=== PATIENT | female | born 1950 | race Caucasian/White ===

== ENCOUNTER 2019-04-02 14:03 | Outpatient (CLI) | payer MEDICARE, MEDICAID, SELFPAY | END 2019-04-02 14:04 | disposition home or self-care (01) | PROVIDERS: PCP Family Medicine; Visit Provider Family Medicine | DX: H90.3 Sensorineural hearing loss, bilateral (principal) | CPT/HCPCS: 92557; 92567 ==

== ENCOUNTER 2019-05-11 15:00 | Outpatient (RCR) | payer MEDICARE, MEDICAID, SELFPAY | END 2019-05-11 23:59 | disposition home or self-care (01) | LOC: ANHAUDIO 15:00 | PROVIDERS: PCP Family Medicine; Visit Provider Family Medicine | DX: Z46.1 Encounter for fitting and adjustment of hearing aid (principal) | CPT/HCPCS: 99199 ==

== ENCOUNTER 2019-10-28 09:07 | Outpatient (RCR) | payer MEDICAID, SELFPAY | END 2019-10-28 23:59 | disposition home or self-care (01) | LOC: ANHAUDIO 09:07 | PROVIDERS: PCP Family Medicine; Visit Provider Family Medicine | DX: Z46.1 Encounter for fitting and adjustment of hearing aid (principal) | CPT/HCPCS: V5014 ==

== ENCOUNTER 2020-12-30 12:35 | Outpatient (CLI) | payer MEDICARE, MEDICAID, SELFPAY | END 2020-12-30 12:36 | disposition home or self-care (01) | LOC: ANHAUDIO 12:36 | DX: Z01.10 Encounter for examination of ears and hearing without abnormal findings (principal) | CPT/HCPCS: 92557; 92567 ==

== ENCOUNTER 2021-03-21 08:22 | Outpatient (RCR) | payer MEDICARE, MEDICAID, SELFPAY | END 2021-03-21 23:59 | disposition home or self-care (01) | LOC: ANHAUDIO 08:22 | DX: Z46.1 Encounter for fitting and adjustment of hearing aid (principal) | CPT/HCPCS: V5160; V5261; V5264 ==

== ENCOUNTER 2021-09-04 01:49 | Inpatient (IN) | payer MEDICARE, MEDICAID, SELFPAY ==
[2021-09-04] VITALS (12 sets, daily range): BP systolic 112–146; BP diastolic 65–76; PULSE 65–80; RESP 16–22; TEMP 35.9–36.8; O2SAT 94–98; BMI 11.0
--- NOTE | ~2021-09-04 | XR_ITS ---
[id number]_CR DATE: 09/06/2021 11:39 INDICATION: Postthoracentesis TECHNIQUE: Portable upright AP views of the chest on 09/06/2021 at 1131 hours COMPARISON: 09/06/2021 thoracentesis 09/2021 CT chest 09/05/2021 portable AP chest 09/2021 2 view chest FINDINGS: No evidence of pneumothorax following left thoracentesis earlier today. There is substantia lly diminished left pleural effusion. Lobular enlarged cardiac silhouette consistent with pericardial effusion noted on 09/2021 CT chest ex amination. Mild blunting of both costophrenic angle suggesting bilateral small pleural effusions. There is prominent left mid and lower lung infiltrate and/atelectasis with air bronchograms. Severe bilateral glenohumeral osteoarthritis. Mild dextroscoliosis and prominent degenerative spurrin g of the thoracic spine.. IMPRESSION: No evidence of pneumothorax following thoracentesis today Left mid and lower lung infiltrate and/atelectasis Globular enlarged cardiac silhouette consistent with pericardial effusion noted on 09/2021 CT chest e xamination Reviewed, dictated and finalized at [facility]. Reviewed, dictated and finalized at location A. IMPRESSION: No evidence of pneumothorax following thoracentesis today Left mid and lower lung infiltrate and/atelectasis Globular enlarged cardiac silhouette consistent with pericardial effusion noted on 09/2021 CT chest examination
--- NOTE | ~2021-09-04 | XR_ITS ---
EXAMINATION: [id number] Exam Date/Time: 09/16/2021 11:25 CDT HISTORY: LT PLEURAL EFFUSION,POST THORA Comparison: 09/06/2021. RESULT: Lines, tubes, and devices: None. Lungs and pleura: Similar moderate left effusion. Cardiomediastinal silhouette: Stable, partially obscured cardiomediastinal silhouette. Other: No acute osseous or upper abdominal finding. IMPRESSION: No pneumothorax. Similar left effusion. Reviewed, dictated and finalized at location K.
--- NOTE | ~2021-09-04 | US_ITS ---
EXAMINATION: US thoracentesis DATE: 09/06/2021 11:40 INDICATION: Left pleural effusion TECHNIQUE: The procedure and its risks and benefits were discussed with the patient. Potential risks discussed included bleeding, infection, and pneumothorax. The patient understood the risks and agreed to proceed. The skin was prepped and draped in sterile fashion. 1% lidocaine was used for local anes thesia. Under ultrasound guidance, a 5 Fr catheter with trochar was advanced into the left pleural ef fusion. Fluid was aspirated. The catheter was removed, and a dressing was applied. There were no imme diate complications. FINDINGS: Ultrasound images demonstrate a small left pleural effusion and the catheter within the fluid. IMPRESSION: 1. Successful ultrasound-guided thoracentesis yielding 950 mL of slightly green-tinged yellowish flu id. Reviewed, dictated and finalized at location A. IMPRESSION: 1. Successful ultrasound-guided thoracentesis yielding 950 mL of slightly gree n-tinged yellowish fluid.
--- NOTE | ~2021-09-04 | US_ITS ---
US thoracentesis DATE: 09/16/2021 11:42 INDICATION: Left pleural effusion TECHNIQUE: Consent was obtained by telephone from a family member. The skin over the posterior lateral left lower chest was performed per sterile Betadine and sterile d rape was applied. An intercostal space was identified sonographically for percutaneous access for tho racentesis. 1% lidocaine was administered to the skin and underlying subcutaneous tissues. A single s tick needle/catheter was introduced through the intercostal space under ultrasound guidance into the pleural space, yielding cloudy yellowish pleural effusion. A small syringe was filled with pleural fl uid for diagnostic testing. 400 CC pleural fluid was drained into a Vacutainer bottle. The patient was very cooperative and tolerated the procedure well, without apparent complication. IMPRESSION: Percutaneous ultrasound-guided left thoracentesis procedure yielding 400 CC Conray left p leural fluid Reviewed, dictated and finalized at [facility]. Reviewed, dictated and finalized at location A. IMPRESSION: Percutaneous ultrasound-guided left thoracentesis procedure yieldin g 400 CC Conray left pleural fluid
--- NOTE | ~2021-09-04 | XR_ITS ---
EXAMINATION: XR chest 1V portable DATE: 09/06/2021 06:28 INDICATION: Left pleural effusion TECHNIQUE: frontal view of the chest was obtained. COMPARISON: Chest radiograph dated 09/05/[address] dated 09/04/2021 FINDINGS: Persistent complete opacification of the left hemithorax which on prior CT corresponds to a combinati on of large left pleural effusion and left lung collapse. Right lung remains clear. No pneumothorax o r evident right pleural effusion. The left side of the cardiomediastinal is obscured. Of note on prio r CT, cardiomegaly and a large complex appearing pericardial effusion concerning for pericarditis wer e present. IMPRESSION: 1. Persistent left lung collapse with large left pleural effusion. Reviewed, dictated and finalized at location A.
--- NOTE | ~2021-09-04 | XR_ITS ---
EXAMINATION: XR chest 1V portable INDICATION: Pleural effusion TECHNIQUE: Portable AP chest at 0849 hours COMPARISON: 09/06/2021, 09/04/2021 FINDINGS: There is moderate size right pleural effusion without significant change. There are stable airspace opacities of the mid and lower lung zones and patchy opacities throughout the right lung and in the left upper lung zone. There is stable enlargement of the cardiac silhouette. There is advance d osteoarthritis of the glenohumeral joint. No pneumothorax is identified. IMPRESSION: 1. Stable moderate-sized left pleural effusion. 2. Stable bilateral airspace opacities, consistent with atelectasis versus pneumonia versus pulmonary edema. 3. Stable enlargement of the cardiac silhouette, demonstrated to reflect combination of pericardial e ffusion and cardiomegaly on recent CT. Reviewed, dictated and finalized at location B. IMPRESSION: 1. Stable moderate-sized left pleural effusion. 2. Stable bilateral airspace opacities, consistent with atelectasis versus pneu monia versus pulmonary edema. 3. Stable enlargement of the cardiac silhouette, demonstrated to reflect combin ation of pericardial effusion and cardiomegaly on recent CT.
--- NOTE | ~2021-09-04 | XR_ITS ---
XR chest 2V DATE: 09/04/2021 02:38 INDICATION: Left pleural effusion TECHNIQUE: AP and lateral views COMPARISON: 09/04/2021 CT chest FINDINGS: There is virtually complete opacification of left hemithorax due to large left pleural effu rajwinder and left lung atelectasis. Mild right pleural effusion. No pneumothorax. Severe osteoarthritic change at the glenohumeral joints. Diffuse idiopathic skeletal hyperostosis of the thoracic spine. IMPRESSION: Virtually complete opacification of left hemithorax due to large pleural effusion and lef t lung atelectasis Reviewed, dictated and finalized at location A. IMPRESSION: Virtually complete opacification of left hemithorax due to large pl eural effusion and left lung atelectasis
--- NOTE | ~2021-09-04 | US_ITS ---
EXAMINATION: US thoracentesis DATE: 09/11/2021 13:15 INDICATION: pleural effusion TECHNIQUE: The procedure and its risks, benefits, and alternatives were discussed with the patient's housing management representative. Potential risks discussed included bleeding, infection, and pneumothorax. She underst ood the risks and agreed to proceed. The skin was prepped and draped in sterile fashion. 1% lidocaine was used for local anesthesia. Under ultrasound guidance, a 5 Fr catheter with trochar was advanced into the left pleural effusion. Fluid was aspirated. The catheter was removed, and a dressing was key lied. There were no immediate complications. FINDINGS: Ultrasound images demonstrate a left pleural effusion and the catheter within the fluid. IMPRESSION: 1. Successful ultrasound-guided thoracentesis yielding 600 mL of clear, yellow fluid. Reviewed, dictated and finalized at location A.
--- NOTE | ~2021-09-04 | XR_ITS ---
EXAMINATION: XR chest 1V portable DATE: 09/05/2021 05:39 INDICATION: Shortness of breath. Left-sided pleural effusion. TECHNIQUE: frontal view of the chest was obtained. COMPARISON: Chest radiograph dated 09/04/2021 FINDINGS: Near complete opacification of the left hemithorax with minimal residual aerated lung in the left upp er lung zone. Calcified nodules in the left midlung zone consistent with old granulomatous disease. M inimal right pleural effusion at the costophrenic angle and mild streaky right basilar atelectasis. T he right side of thecardiomediastinal silhouette is unchanged. The left side is obscured by the left pleural effusion. Mitral annular calcification. Advanced bilateral glenohumeral osteoarthritis. Posto perative change of prior left mastectomy. IMPRESSION: 1. Persistent large left pleural effusion with near complete collapse of the left lung. Underlying pn eumonia or malignancy is not excludable. 2. Very small right pleural effusion with mild right basilar atelectasis. Reviewed, dictated and finalized at location A. IMPRESSION: 1. Persistent large left pleural effusion with near complete collapse of the le ft lung. Underlying pneumonia or malignancy is not excludable. 2. Very small right pleural effusion with mild right basilar atelectasis.
--- NOTE | ~2021-09-04 | CT_ITS ---
EXAMINATION: CT diagnostic chest wo con DATE: 09/04/2021 06:00 INDICATION: left sided pleural effusion TECHNIQUE: Computed tomography (CT) of the chest was performed with 75 mL Omnipaque 300 intravenous c ontrast. Automated exposure control and iterative reconstruction technique were employed. The dose-le ngth product was 640.59 mGy-cm. COMPARISON: X-ray chest, same date. FINDINGS: CHEST: Thoracic aorta: Mild ectasia and arch calcification. Lung parenchyma and airways: Motion artifact. Right apical pleural scarring. Left lung collapse. Thoracic inlet, axillae and chest wall: No thyroid or soft tissue mass. No axillary lymphadenopathy. Left edema. Mediastinum: No mass or lymphadenopathy. Heart and pericardium: Normal heart size. Large volume pericardial effusion, with pericardial thicken ing/enhancement. Mitral and possibly aortic valve calcifications. Coronary artery calcifications: Moderate. Pleura: Moderate volume left and small volume right pleural effusions. Upper abdomen: No significant finding. Thoracic bones: No acute osseous finding in the chest. IMPRESSION: Large volume pericardial effusion, with possible pericarditis. Moderate left and small right pleural effusions. Complete atelectasis of the left lung. Reviewed, dictated and finalized at location K. IMPRESSION: Large volume pericardial effusion, with possible pericarditis. Moderate left an d small right pleural effusions. Complete atelectasis of the left lung.
--- NOTE | ~2021-09-04 | XR_ITS ---
EXAMINATION: [id number] DATE: 09/11/2021 12:55 INDICATION: Left pleural effusion status post thoracentesis. TECHNIQUE: Frontal and lateral views of the chest were obtained. COMPARISON: Chest single view 09/07/2021, chest CT 09/04/2021 FINDINGS: There are small pleural effusions. There are airspace opacities in right lower lung zone an d left mid and lower lung zones. No pneumothorax. There is enlargement of the cardiac silhouette. The re is a chronic compression fracture of T11. IMPRESSION: 1. Small pleural effusions with improvement on the left status post thoracentesis. 2. Airspace opacities in right lower lung zone and left mid and lower lung zones, likely atelectasis. Pneumonia cannot be excluded. 3. Enlargement of the cardiac silhouette, likely a combination of pericardial effusion and cardiomega ly as seen on the prior CT. Reviewed, dictated and finalized at location A. IMPRESSION: 1. Small pleural effusions with improvement on the left status post thoracentes is. 2. Airspace opacities in right lower lung zone and left mid and lower lung zone s, likely atelectasis. Pneumonia cannot be excluded. 3. Enlargement of the cardiac silhouette, likely a combination of pericardial e ffusion and cardiomegaly as seen on the prior CT.
--- NOTE | ~2021-09-04 | XR_ITS ---
EXAMINATION: XR chest 1V portable DATE: 09/14/2021 05:54 INDICATION: Shortness of breath. TECHNIQUE: A single frontal view of the chest was obtained. COMPARISON: Chest 2 views 09/11/2021, chest CT 09/04/2021 FINDINGS: There are airspace opacities in left mid and lower lung zones. There is a moderate-sized le ft pleural effusion. No pneumothorax. There is enlargement of the cardiac silhouette. IMPRESSION: 1. Worsened airspace opacities in left mid and lower lung zones, consistent with a combination of mod erate-sized pleural effusion and atelectasis versus pneumonia. 2. Persistent enlargement of the cardiac silhouette, likely a combination of cardiomegaly and pericar dial effusion. Reviewed, dictated and finalized at location A. IMPRESSION: 1. Worsened airspace opacities in left mid and lower lung zones, consistent wit h a combination of moderate-sized pleural effusion and atelectasis versus pneum onia. 2. Persistent enlargement of the cardiac silhouette, likely a combination of ca rdiomegaly and pericardial effusion.
--- NOTE | 2021-09-04 01:54 | ECG_ITS ---
Measurements Intervals [place] Rate: 66 P: 38 OH: 220 QRS: 15 QRSD: 104 T: 51 QT: 420 QTc: 443 Interpretive Statements SINUS RHYTHM WITH FIRST DEGREE AV BLOCK BORDERLINE ST-T WAVE ABNORMALITY- DIFFUSE LEADS BASELINE WANDER- I, II, III, AVR, AVL BORDERLINE ECG Electronically Signed On 09-04-2021 7:41:24 CDT by Cortes Miranda D.O.
[2021-09-04 02:19] LABS: Base Excess ABG 6.4 mEq/l (+/-2.0); Fractional Inspired Oxygen 36 %; HCO3 ABG 31.5 mEq/l (22.0-26.0); Oxygen Content ABG 15.2 %vol (16.0-22.0); Oxygen Saturation ABG 97.8 % (95.0-100.0); Oxyhemoglobin 96.4 % THb (90.0-100.0); PCO2 ABG 47.9 mmHg (35.0-45.0); PO2 ABG 102.1 mmHg (80.0-100.0); PO2 FiO2 Ratio Arterial Blood 2.84 %; Total Hemoglobin 11.1 g/dL (12.0-18.0); pH ABG 7.436 (7.350-7.450)
[2021-09-04 02:20] LABS: Device NASAL CANNULA; Modified Allen's Test Pass; Site Drawn LEFT RADIAL
--- NOTE | 2021-09-04 02:28 | ED.GENADULT ---
HPI - General Adult General Chief complaint: Shortness of Breath/Dyspnea <Pacheco Mcintosh MD - Last Filed: 09/04/21 19:09> Stated complaint: pleural effusion from [facility] nursing <Pacheco Mcintosh MD - Last Filed: 09/04/21 19:09> Time Seen by Provider: 09/04/21 01:53 <Pacheco Mcintosh MD - Last Filed: 09/04/21 19:09> History of Present Illness HPI narrative: 70-year-old female presented to the emergency department for evaluation of a pleural effusion. Patient had outpatient imaging at [facility] showing a pleural effusion. Patient was initially transferred to [place]. No intervention was performed, patient was discharged back to the care facility. Care facility transfered the patient here for a second opinion on the pleural effusion. Patient does have history of hypertension, A. fib, COPD and asthma and type 2 diabetes. Patient is normally on 3 L of oxygen nasal cannula. Patient does have a Palafox catheter in place. <Pacheco Mcintosh MD - Last Filed: 09/04/21 19:09> Related Data Home medications: Home Medications Medication Instructions Recorded Confirmed amiodarone 200 mg tablet 1 tablet BID 09/04/21 09/04/21 amitriptyline 10 mg tablet 1 tablet HS 09/04/21 09/04/21 apixaban 5 mg tablet (Eliquis) 1 tablet BID 09/04/21 09/04/21 atorvastatin 20 mg tablet 1 tablet HS 09/04/21 09/04/21 budesonide-formoterol HFA 160 2 inh inhalation BID 09/04/21 09/04/21 mcg-4.5 mcg/actuation aerosol inhaler cyclosporine 0.05 % eye drops in a 2 drp EACH EYE BID 09/04/21 09/04/21 dropperette (Restasis) divalproex 125 mg capsule,delayed 2 cap PO BID 09/04/21 09/04/21 release sprinkle donepezil 10 mg tablet 1 tablet DAILY 09/04/21 09/04/21 furosemide 40 mg tablet 1 tablet DAILY 09/04/21 09/04/21 gabapentin 100 mg capsule 1 cap TID 09/04/21 09/04/21 insulin glargine 100 unit/mL (3 55 ea subcut DAILY 09/04/21 09/04/21 mL) subcutaneous pen (Lantus Solostar U-100 Insulin) insulin lispro 100 unit/mL 8 ea subcut TIDWM 09/04/21 09/04/21 subcutaneous pen (Humalog KwikPen (U-100) Insulin) ipratropium 0.5 mg-albuterol 3 mg 3 ml inhalation Q6H 09/04/21 09/04/21 (2.5 mg base)/3 mL nebulization soln ketoconazole 2 % topical cream 1 applic topical BID 09/04/21 09/04/21 metoprolol tartrate 25 mg tablet 1 tablet BID 09/04/21 09/04/21 olanzapine 2.5 mg tablet 1 tablet HS 09/04/21 09/04/21 pantoprazole 40 mg tablet,delayed 1 tablet PO BID 09/04/21 09/04/21 release sertraline 100 mg tablet 1 tablet HS 09/04/21 09/04/21 <Pacheco Mcintosh MD - Last Filed: 09/04/21 19:09> Allergies/adverse reactions: Allergies Allergy/AdvReac Type Severity Reaction Status Date / Time castor oil Allergy Unknown Verified 09/04/21 07:27 chlorpromazine Allergy Unknown Verified 09/04/21 07:27 [From Thorazine] codeine Allergy Unknown Verified 09/04/21 09:08 phenobarbital Allergy Unknown Verified 09/04/21 07:27 propoxyphene Allergy Unknown Verified 09/04/21 09:08 thioridazine [From Mellaril] Allergy Unknown Verified 09/04/21 07:27 <Pacheco Mcintosh MD - Last Filed: 09/04/21 19:09> Review of Systems Review of Systems: ROS unobtainable: Yes unobtainable due to medical condition <Pacheco Mcintosh MD - Last Filed: 09/04/21 19:09> [facility] Social History Social History: Social History Smoking status: Unknown if ever smoked Spiritual care concerns: No <Pacheco Mcintosh MD - Last Filed: 09/04/21 19:09> Exam Narrative: APPEARANCE: Alert, no distress HEAD: normocephalic, atraumatic. EYES: PERRLA/EOMI, conjunctivae clear. NOSE: Normal no drainage EARS:TMS clear with good light reflex. THROAT: Pharynx clear, no exudate. NECK: Supple. No adenopathy, no masses. RESPIRATORY: Airway patent, respirations nonlabored. Clear to auscultation bilaterally, no rales, rhonchi, wheezing. CARDIOVASCULAR: Regular rate and rhythm without murmurs rubs or gallops. ABDOMINAL: Soft, nontender, nondistended, normal b
[2021-09-04 04:51] LABS: White Blood Count 13.7 K/mm3 (4.5-10.0)
[2021-09-04 04:52] LABS: Basophils Percent Auto 0.3 % (0.2-1.2); Eosinophils Absolute Auto 0.1 K/mm3 (0-0.3); Eosinophils Percent Auto 0.8 % (0-4.4); Hemoglobin 9.5 g/dL (12.0-15.0); Immature Granulocyte Percent A 0.7 % (0-0.5); Lymphocytes Absolute Auto 2.33 K/mm3 (0.9-3.2); Mean Corpuscular HGB Conc 30.6 g/dl (32-36); Mean Corpuscular Hemoglobin 27.9 pg (26-34); Mean Corpuscular Volume 91.2 fl (80-100); Mean Platelet Volume 9.2 fl (7.4-10.4); Monocytes Percent Auto 6.9 % (2.6-8.5); Neutrophils Absolute Auto 10.2 K/mm3 (1.3-6.7); Neutrophils Percent Auto 74.3 % (45.5-73.1); Platelet Count Result 330 k/mm3 (150-375); Red Cell Distribution Width 15.2 % (11.5-14.5)
[2021-09-04 04:53] LABS: Appearance Urine Clear (Clear); Bilirubin Urine Negative (Negative); Blood Urine 3+ (Negative); Color Urine Yellow (Yellow); Glucose Urine UA Negative (Negative); Ketones Urine Negative (Negative); Leukocyte Esterase Ur Negative LEU/UL (Negative); Nitrate Urine Negative (Negative); Protein Urine 2+ mg/dL (Negative)
[2021-09-04 04:58] LABS: Add Urine Microscopic? YES; Bacteria Urine Trace /hpf; Mucus Urine Rare /lpf; RBC Urine >75 /hpf (0-2); Squamous Epithelial Cell Urine Rare /hpf (Few); Transitional Epi Cells Urine Rare /hpf (None Seen); WBC Urine 31-50 /hpf
[2021-09-04 05:02] LABS: Alanine Aminotransferase 27 U/L (6-35); Albumin Level 3.3 g/dL (3.5-5.1); Alkaline Phosphatase 86 U/L (38-126); Anion Gap 4 mmol/L (8-16); Aspartate Amino Transferase 24 U/L (14-36); Bilirubin,Total 0.4 mg/dL (0.2-1.3); Blood Urea Nitrogen 17 mg/dL (7-17); Calcium 8.5 mg/dL (8.4-10.2); Carbon Dioxide 39 mmol/L (22-30); Chloride 92 mmol/L (98-107); Estimated Glomerular Filt Rate > 60; Glucose 141 mg/dL (65-110); Potassium 2.9 mmol/L (3.4-5.0); Sodium 135 mmol/L (137-145)
[2021-09-04 05:09] LABS: NT Pro B Type Natriuretic Pept 852 pg/mL (5-100)
[2021-09-04 05:26] LABS: SARS-CoV-2 RNA PCR Negative
[2021-09-04] MEDS: POTASSIUM CHLORIDE 20 MEQ PACKET (FOR LIQUID) 40 MEQ PO (07:26)
[2021-09-04] MEDS: KCL 20 MEQ/SW 100 ML 100 ML 50 MEQ IVPB (07:26)
--- NOTE | 2021-09-04 07:42 | ECG_ITS ---
Measurements Intervals [place] Rate: 66 P: 47 MD: 219 QRS: 31 QRSD: 103 T: 120 QT: 411 QTc: 433 Interpretive Statements SINUS RHYTHM WITH FIRST DEGREE AV BLOCK BORDERLINE ST-T WAVE ABNORMALITY- DIFFUSE LEADS BORDERLINE ECG Electronically Signed On 09-04-2021 15:11:01 CDT by Cortes Miranda D.O.
[2021-09-04] MEDS: ASPIRIN 81 MG CHEWABLE TABLET 324 MG PO (07:56)
[2021-09-04] MEDS: MORPHINE SULFATE (*CRX) 2 MG/ML INJ 1 MG IV PUSH (07:56)
[2021-09-04] MEDS: ONDANSETRON INJ 4 MG/2 ML VIAL IV PUSH ×2 (07:57→13:57)
--- NOTE | 2021-09-04 08:32 | PM.IMHP ---
H&P: HPI History of Present Illness Date/Time: 09/04/21 08:32 Chief Complaint: shortness of breath Narrative: patient is a 70-year-old female with past medical history of AFib, hypertension, COPD, asthma diabetes mellitus type 2. She chronically wears 3 L of oxygen per nasal cannula. she presented to [facility] for further evaluation of shortness of breath. Patient had outpatient imaging at [facility] which revealed a pleural effusion. The patient was initially transferred to [place]. No intervention was performed and the facility discharge her. she was returned back to the [facility] facility who then transferred her to [facility] for 2nd opinion. According to the emergency department notes the patient was able to speak in complete sentences and did not appear to be in acute respiratory distress and vital signs were stable. Patient believes that the [place] is a dullness to her. The [facility] records have the patient listed as a DNR. cardiology was also consulted from the emergency department. While she was there she had labs and imaging obtained which revealed a leukocytosis 13.7, hemoglobin 9.5, hematocrit 31 point, platelet 330, sodium 135, potassium 2.9, chloride 92, glucose 141, creatinine 0.8, BUN 17 with a GFR greater than 60. P and P 852 and abnormally urinalysis. ABG performed which revealed pH 7.436, pCO2 47.9, PO2 102.1 and a bicarb 31.5. Chest x-ray performed which revealed a large left pleural effusion with lung collapse with atelectasis. Also reported possible bronchial mass or obstruction. EKG revealed normal sinus rhythm with diffuse T-wave flattening. Hospitalist team was consulted for further admission. Upon evaluation The patient is hard of hearing, difficult to have conversations and understand plan of care. Patient was also poor historian. Patient will be transferred to ICU given her chest x-ray findings in heart level care needs. Cardiology has been consulted. Review of Systems Review of Systems: ROS unobtainable: Yes unobtainable due to mental status Meds Home Medications and Allergies Home Medications Medication Instructions Recorded Confirmed Type amiodarone 200 mg tablet 1 tablet BID 09/04/21 09/04/21 History amitriptyline 10 mg tablet 1 tablet HS 09/04/21 09/04/21 History apixaban 5 mg tablet (Eliquis) 1 tablet BID 09/04/21 09/04/21 History atorvastatin 20 mg tablet 1 tablet HS 09/04/21 09/04/21 History budesonide-formoterol HFA 160 2 inh inhalation BID 09/04/21 09/04/21 History mcg-4.5 mcg/actuation aerosol inhaler cyclosporine 0.05 % eye drops in a 2 drp EACH EYE BID 09/04/21 09/04/21 History dropperette (Restasis) divalproex 125 mg capsule,delayed 2 cap PO BID 09/04/21 09/04/21 History release sprinkle donepezil 10 mg tablet 1 tablet DAILY 09/04/21 09/04/21 History furosemide 40 mg tablet 1 tablet DAILY 09/04/21 09/04/21 History gabapentin 100 mg capsule 1 cap TID 09/04/21 09/04/21 History insulin glargine 100 unit/mL (3 55 ea subcut DAILY 09/04/21 09/04/21 History mL) subcutaneous pen (Lantus Solostar U-100 Insulin) insulin lispro 100 unit/mL 8 ea subcut TIDWM 09/04/21 09/04/21 History subcutaneous pen (Humalog KwikPen (U-100) Insulin) ipratropium 0.5 mg-albuterol 3 mg 3 ml inhalation Q6H 09/04/21 09/04/21 History (2.5 mg base)/3 mL nebulization soln ketoconazole 2 % topical cream 1 applic topical BID 09/04/21 09/04/21 History metoprolol tartrate 25 mg tablet 1 tablet BID 09/04/21 09/04/21 History olanzapine 2.5 mg tablet 1 tablet HS 09/04/21 09/04/21 History pantoprazole 40 mg tablet,delayed 1 tablet PO BID 09/04/21 09/04/21 History release sertraline 100 mg tablet 1 tablet HS 09/04/21 09/04/21 History Allergies Allergy/AdvReac Type Severity Reaction Status Date / Time castor oil Allergy Unknown Verified 09/04/21 07:27 chlorpromazine Allergy Unknown Verified 09/04/21 07:27 [From Thorazine] codeine A
--- NOTE | 2021-09-04 08:42 | ECHO_ITS ---
Patient Info Name: Montse Zarate Age: 70 years : 1950 Gender: Female Ht: 63 in Wt: 141 lbs BSA: 1.70 m2 HR: 68 bpm BP: 123 / 75 mmHg Heart Rhythm: Sinus Rhythm Exam Date: 09/04/2021 1:40 PM Exam Location: [facility] Patient Status: Inpatient Admit Date: 09/04/2021 Staff Ordering Physician: Isa Paez APRN Director [facility]: Derek Solis RDCS, RT Attending Provider: Payam Srivastava MD Referring Physician: Philippe BIANCHI; Exam Type: CA echo doppler color flow Study Info Indications R06.02 - Shortness of breath Complete two-dimensional, color flow and Doppler transthoracic echocardiogram is performed. Summary 1. Complete two-dimensional, color flow and Doppler transthoracic echocardiogram is performed. 2. Left ventricular chamber dimension is normal. 3. Left ventricular systolic function is normal, estimated at 50-55%. 4. There is mild concentric increased left ventricular wall thickness. 5. Left atrial chamber dimension is mildly enlarged. 6. A small to moderate-sized pericardial effusion is present. 7. Pericardial effusion is complex with fibrin is appearing material as well as soft tissue thickening/density noted. Left Ventricle Left ventricular chamber dimension is normal. Left ventricular systolic function is normal, estimated at 50-55%. There is mild concentric increased left ventricular wall thickness. The left ventricular diastolic function is grade I diastolic dysfunction. Right Ventricle Right ventricular chamber dimension is normal. Left Atria Left atrial chamber dimension is mildly enlarged. Right Atria Right atrial chamber dimension is normal. Aortic Valve The aortic valve is normal. Pulmonic Valve The pulmonic valve is not well visualized. Mitral Valve The mitral valve has normal leaflets. The mitral valve annulus is moderately calcified. Tricuspid Valve The tricuspid valve leaflets are normal. There is trace tricuspid valve regurgitation. Pericardium/Pleural The pericardium appears thickened pericardium. There is small circumferential pericardial effusion. Aorta The aortic root size at the sinus of Valsalva is normal. Left Ventricular Outflow Tract Name Value Normal LVOT 2D LVOT Diameter 2.0 cm LVOT Doppler LVOT Peak Gradient 4 mmHg LVOT Mean Gradient 2 mmHg LVOT VTI 17 cm LVOT VTI/AV VTI Ratio 0.8 LVOT Stroke Volume 50 ml LVOT CO 3.4 l/min LVOT CI 2.0 l/min/m2 Mitral Valve Name Value Normal MV Doppler MV [place] 336 cm/s2 MV PHT 71 ms MV Area (PHT) 3.1 cm2 4.0-5.0 MV Guillen
[2021-09-04 09:12] LABS: INR 1.9; Prothrombin Time 21.1 Seconds (11.1-14.7)
[2021-09-04 09:15] LABS: Potassium 3.9 mmol/L (3.4-5.0)
[2021-09-04 11:19] LABS: Glucose Point of Care 113 mg/dl (65-105)
--- NOTE | 2021-09-04 15:04 | PC.NURSE ---
0956 This patient, Montse Zarate, was admitted to IMU status, and placed in Intensive Care Unit-2. Patient/family oriented to hospital policies and general routines including ID bracelet, bed and alarms, visiting hours, pain management, procedures, bathroom and other care routines, personal items, smoking policy, room service/diet, and visiting hours. Valuables list has been completed. Information on how to activate the Rapid Response Team has been discussed. Patient/Family are encouraged to report perceived risks to care and to ask questions if they do not understand what they are told or what they should do.
--- NOTE | 2021-09-04 17:25 | PM.CNCAR ---
Assessment and Plan Assessment and plan (1) Acute pericardial effusion: Code(s): I30.9 - Acute pericarditis, unspecified Status: Acute Plan Large left side pleural effusion and hypoxemia Small pericardial effusion (full ECHO is pending) Plan Consider thoracentesis Laisx 40 mg BID Further recommendation pending full echo reading History of Present Illness History of Present Illness Consult date/time: 09/04/21 17:25 Reason For Visit: left pleural effusion, paricardial effusion, hypok Narrative: Patient is poor historian and doesn't provide answers to most questions. She presented to hospital for evaluation of SOB and noted to have large left side pleural effusion and possible pericardial effusion. She has Hx of COPD on 3 L of O2. She appears comfortable. Review of Systems Review of Systems: ROS unobtainable: Yes unobtainable due to mental status PMFSH Social History Social History Smoking status: Unknown if ever smoked Spiritual care concerns: No Meds Home Medications and Allergies Home Medications Medication Instructions Recorded Confirmed Type amiodarone 200 mg tablet 1 tablet BID 09/04/21 09/04/21 History amitriptyline 10 mg tablet 1 tablet HS 09/04/21 09/04/21 History apixaban 5 mg tablet (Eliquis) 1 tablet BID 09/04/21 09/04/21 History atorvastatin 20 mg tablet 1 tablet HS 09/04/21 09/04/21 History budesonide-formoterol HFA 160 2 inh inhalation BID 09/04/21 09/04/21 History mcg-4.5 mcg/actuation aerosol inhaler cyclosporine 0.05 % eye drops in a 2 drp EACH EYE BID 09/04/21 09/04/21 History dropperette (Restasis) divalproex 125 mg capsule,delayed 2 cap PO BID 09/04/21 09/04/21 History release sprinkle donepezil 10 mg tablet 1 tablet DAILY 09/04/21 09/04/21 History furosemide 40 mg tablet 1 tablet DAILY 09/04/21 09/04/21 History gabapentin 100 mg capsule 1 cap TID 09/04/21 09/04/21 History insulin glargine 100 unit/mL (3 55 ea subcut DAILY 09/04/21 09/04/21 History mL) subcutaneous pen (Lantus Solostar U-100 Insulin) insulin lispro 100 unit/mL 8 ea subcut TIDWM 09/04/21 09/04/21 History subcutaneous pen (Humalog KwikPen (U-100) Insulin) ipratropium 0.5 mg-albuterol 3 mg 3 ml inhalation Q6H 09/04/21 09/04/21 History (2.5 mg base)/3 mL nebulization soln ketoconazole 2 % topical cream 1 applic topical BID 09/04/21 09/04/21 History metoprolol tartrate 25 mg tablet 1 tablet BID 09/04/21 09/04/21 History olanzapine 2.5 mg tablet 1 tablet HS 09/04/21 09/04/21 History pantoprazole 40 mg tablet,delayed 1 tablet PO BID 09/04/21 09/04/21 History release sertraline 100 mg tablet 1 tablet HS 09/04/21 09/04/21 History Allergies Allergy/AdvReac Type Severity Reaction Status Date / Time castor oil Allergy Unknown Verified 09/04/21 07:27 chlorpromazine Allergy Unknown Verified 09/04/21 07:27 [From Thorazine] codeine Allergy Unknown Verified 09/04/21 09:08 phenobarbital Allergy Unknown Verified 09/04/21 07:27 propoxyphene Allergy Unknown Verified 09/04/21 09:08 thioridazine [From Mellaril] Allergy Unknown Verified 09/04/21 07:27 Vital Signs Vital Signs - 24 hr 09/04/21 01:48 09/04/21 07:21 09/04/21 07:37 Temperature 36.8 C Pulse Rate 68 67 Respiratory Rate 22 H Blood Pressure 125/76 Pulse Oximetry 97 97 Oxygen Delivery Nasal Cannula Nasal Cannula Oxygen Flow Rate 3 3 09/04/21 07:38 09/04/21 07:38 09/04/21 09:35 Temperature Pulse Rate 65 67 Respiratory Rate 16 16 Blood Pressure 112/67 130/65 Pulse Oximetry 95 95 96 Oxygen Delivery Nasal Cannula Oxygen Flow Rate 3 09/04/21 10:11 09/04/21 12:00 09/04/21 14:00 Temperature 35.9 C L 36.4 C Pulse Rate 67 73 72 Respiratory Rate 19 18 Blood Pressure 123/75 132/70 Pulse Oximetry 97 97 Oxygen Delivery Oxygen Flow Rate 09/04/21 16:00 09/04/21 16:00 Temperature 36.8 C Pulse Rate 74 76 Respiratory Rate 18 20 Blood Pressure 146/67 H
[2021-09-04] MEDS: MELATONIN 5 MG TABLET PO (21:24)
[2021-09-04] MEDS: ACETAMINOPHEN 325 MG TABLET 650 MG PO (21:24)
[2021-09-05] VITALS (13 sets, daily range): BP systolic 125–157; BP diastolic 61–137; PULSE 67–100; RESP 18–27; TEMP 35.9–36.6; O2SAT 94–100
[2021-09-05 04:31] LABS: Basophils Percent Auto 0.3 % (0.2-1.2); Eosinophils Absolute Auto 0.2 K/mm3 (0-0.3); Eosinophils Percent Auto 1.8 % (0-4.4); Hematocrit 30.1 % (37.0-47.0); Hemoglobin 8.9 g/dL (12.0-15.0); Immature Granulocyte Absolute 0.06 K/mm3 (0.00-0.031); Immature Granulocyte Percent A 0.5 % (0-0.5); Mean Corpuscular HGB Conc 29.6 g/dl (32-36); Mean Corpuscular Hemoglobin 27.6 pg (26-34); Mean Corpuscular Volume 93.2 fl (80-100); Mean Platelet Volume 8.8 fl (7.4-10.4); Monocytes Absolute Auto 0.9 K/mm3 (0.1-0.6); Monocytes Percent Auto 7.7 % (2.6-8.5); Neutrophils Percent Auto 77.7 % (45.5-73.1); Platelet Count Result 279 k/mm3 (150-375); Red Blood Count 3.23 M/mm3 (4.2-5.4); Red Cell Distribution Width 15.2 % (11.5-14.5); White Blood Count 11.6 K/mm3 (4.5-10.0)
[2021-09-05 04:42] LABS: Alanine Aminotransferase 25 U/L (6-35); Albumin Level 2.9 g/dL (3.5-5.1); Alkaline Phosphatase 80 U/L (38-126); Anion Gap 3 mmol/L (8-16); Aspartate Amino Transferase 33 U/L (14-36); Bilirubin,Total 0.5 mg/dL (0.2-1.3); Blood Urea Nitrogen 17 mg/dL (7-17); Calcium 8.1 mg/dL (8.4-10.2); Carbon Dioxide 39 mmol/L (22-30); Chloride 94 mmol/L (98-107); Estimated Glomerular Filt Rate > 60; Glucose 133 mg/dL (65-110); Potassium 3.4 mmol/L (3.4-5.0); Sodium 136 mmol/L (137-145)
[2021-09-05] MEDS: ONDANSETRON INJ 4 MG/2 ML VIAL IV PUSH (07:09)
[2021-09-05 07:34] LABS: Albumin Level 2.9 g/dL (3.5-5.1); Lactate Dehydrogenase 275 U/L (313-618); Magnesium 1.3 mg/dL (1.6-2.3)
[2021-09-05] MEDS: POTASSIUM CHLORIDE 20 MEQ TABLET 40 MEQ PO (08:20)
[2021-09-05 11:09] LABS: Glucose Point of Care 124 mg/dl (65-105)
--- NOTE | 2021-09-05 11:14 | PM.PNCARD ---
Progress Note: A&P Assessment and Plan (1) Pleural effusion: Code(s): J90 - Pleural effusion, not elsewhere classified Status: Acute Plan 70-year-old lady who apparently is a intermediate resident and is systemically anticoagulated because of a history of atrial fibrillation. She has a very large left pleural effusion occupying most of the left hemithorax. Plans are appropriate are to perform thoracentesis for diagnostic reasons. No active or acute cardiac issue that I can see. We will continue to follow the patient with you but at this point there are no specific cardiac recommendations to make. DNR status would lead me to recommend very conservative approach to this case. Izaiah Lou MD [facility] Subjective Date/time seen: Seven date of service: 09/05/21 11:14 Interval history: Follow-up visit in this 70-year-old woman with: Large asymptomatic or minimally symptomatic left pleural effusion. Physical exam is consistent with this. Apparently plans to perform a thoracentesis are on hold because of systemic anticoagulation. The patient is essentially comfortable in ICU room 2. No acute distress. Very hard of hearing Exam Const: General: comfortable and no acute distress Other: Obese elderly lady no distress HENMT: Mouth: Yes moist mucous membranes Eyes: Sclera: sclerae normal Neck: Neck: supple Other: No obvious venous distention. Resp: Other: Mildly tachypneic. Left hemithorax is dull Cardio: Rate: regular rate Rhythm: regular rhythm GI: GI Palp: Yes Soft to palpation Auscultation: normal bowel sounds Skin: General skin exam: normal color Extrem: General: normal to inspection Objective Data Vital Signs Vital Signs: Vital Signs - 24 hr 09/04/21 12:00 09/04/21 14:00 09/04/21 16:00 Temperature 36.4 C Pulse Rate 73 72 74 Respiratory Rate 18 18 Blood Pressure 132/70 Pulse Oximetry 97 98 Oxygen Delivery Nasal Cannula Oxygen Flow Rate 3 09/04/21 16:00 09/04/21 16:00 09/04/21 17:59 Temperature 36.8 C Pulse Rate 76 76 71 Respiratory Rate 20 Blood Pressure 146/67 H Pulse Oximetry 94 Oxygen Delivery Oxygen Flow Rate 09/04/21 20:00 09/04/21 20:00 09/04/21 20:00 Temperature 36.6 C Pulse Rate 74 80 78 Respiratory Rate 18 18 Blood Pressure 146/75 H Pulse Oximetry 94 94 Oxygen Delivery Nasal Cannula Oxygen Flow Rate 2 09/04/21 22:00 09/05/21 00:00 09/05/21 00:00 Temperature Pulse Rate 73 68 68 Respiratory Rate 18 Blood Pressure Pulse Oximetry 94 Oxygen Delivery Nasal Cannula Oxygen Flow Rate 4 09/05/21 00:00 09/05/21 02:00 09/05/21 04:00 Temperature 36.6 C 36.6 C Pulse Rate 67 74 71 Respiratory Rate 18 20 Blood Pressure 125/72 141/61 H Pulse Oximetry 100 100 Oxygen Delivery Oxygen Flow Rate 09/05/21 08:00 09/05/21 07:17 09/05/21 08:00 Temperature 36.2 C L Pulse Rate 79 80 81 Respiratory Rate 22 H 22 H Blood Pressure 153/74 H Pulse Oximetry 98 98 Oxygen Delivery Oxygen Flow Rate Intake/Output Intake/Output: Intake & Output 09/02/21 09/03/21 09/04/21 09/05/21 23:59 23:59 23:59 23:59 Intake Total 490 300 Output Total 400 400 Balance 90 -100 Meds/Results Medications: Active Medications Generic Name Dose Route Start Last Admin Trade Name Freq PRN Reason Stop Dose Admin Acetaminophen 650 mg 09/04/21 08:42 09/04/21 21:24 Acetaminophen 325 Mg Tablet PO 650 mg Q6H PRN Administration Mild Pain (1-3) or Fever Ceftriaxone Sodium/Dextrose 1 gm in 50 mls @ 100 mls/hr 09/05/21 12:00 Rocephin 1 Gm/D5w 50 Ml IVPB Q24H [facility] Azithromycin 500 mg in 250 mls @ 250 mls/hr 09/05/21 10:20 Zithromax IVPB DAILY [facility] Melatonin 5 mg 09/04/21 21:00 09/04/21 21:24 Melatonin 5 Mg Tablet PO 5 mg HS [facility] Administration Miconazole Nitrate 1 applic 09/05/21 09:00 Miconazole 2% Antifungal Ointment 56 Gm TOPICAL
--- NOTE | 2021-09-05 14:01 | PM.IMPN ---
Progress Note: A&P Assessment and Plan (1) Pleural effusion: Code(s): J90 - Pleural effusion, not elsewhere classified Status: Acute Assessment and Plan: Large left-sided pleural effusion -IR to perform a thoracentesis on 09/06/2021, given patient's last Eliquis dose was on 09/05/2019 pneumonia and INR is 1.9. Given that patient hemodynamically stable at this time on 3 L nasal cannula which is what she has at home IR wanted to wait for 1 more day to perform thoracentesis -continue supplemental oxygen -continue ceftriaxone and azithromycin for possible pneumonia as seen on chest x-ray (2) Acute pericardial effusion: Code(s): I30.9 - Acute pericarditis, unspecified Status: Acute Assessment and Plan: 09/05/2021 Echocardiogram: EF of 50-55%, small to moderate size pericardial effusion -no active acute cardiac issues from the pericardial effusion per Cardiology, NO specific cardiac recommendations at this time (3) Elevated brain natriuretic peptide (BNP) level: Code(s): R79.89 - Other specified abnormal findings of blood chemistry Status: Acute Assessment and Plan: ProBNP of 852 -cardiology has evaluated the patient, no recommendations (4) Abnormal finding on urinalysis: Code(s): R82.90 - Unspecified abnormal findings in urine Status: Acute Assessment and Plan: Urine cultures have been obtained -patient on ceftriaxone (5) Acute hypokalemia: Code(s): E87.6 - Hypokalemia Status: Acute Assessment and Plan: Will replete potassium (6) Leukocytosis: Code(s): D72.829 - Elevated white blood cell count, unspecified Status: Acute Assessment and Plan: Leukocytosis trending down could be related to pneumonia, UTI or stress response from the large pleural effusion Plan Thoracentesis to be done on 09/06/2021 by Interventional Radiology Additional Plan Code status DNR This dictation may have been done utilizing a voice recognition system. Attempts have been made to correct errors. However, there may be uncorrected grammatical, spelling, and recognition errors present. Due to a high probability of clinically significant, life threatening deterioration, the patient required my highest level of preparedness to intervene emergently and I personally spent this critical care time directly and personally managing the patient. This critical care time included obtaining a history; examining the patient; pulse oximetry; ordering and review of studies; arranging urgent treatment with development of a management plan; evaluation of patient's response to treatment; frequent reassessment; and discussions with other providers. It was exclusive of separately billable procedures and treating other patients and teaching time. Please see Assessment and Plan section and the rest of the note for further information on patient assessment and treatment Subjective Date/time seen: 09/05/21 14:01 Interval history: 70-year-old female with history of AFib, hypertension, COPD, asthma, diabetes now admitted with large left pleural effusion 09/05/2021: Patient being seen for the hospitalist team. Denies any chest pain, shortness over abdominal pain, nausea, vomiting. Hemodynamically stable, INR is 1.9. Intervention radiology will do the thoracentesis on 09/06/2021 Review of Systems Review of Systems: All systems reviewed & are unremarkable except as noted in HPI and below Exam Narrative: General: Pleasant patient in no acute distress, hard of hearing HEENT: Pupils equal and reactive, sclera is clear Neck: Supple Respiratory: Decreased breath sounds on left. Better air entry on the right side decreased at right base, no wheezing Cardiac: S1-S2 normal, sinus rhythm Abdomen: Soft, nontender, nondistended, normoactive bowel sounds Extremities: Bilateral lower extremity edema, Neuro: Palpable pedal pulses patient is awake, alert, answers to questio
[2021-09-05] MEDS: INSULIN ASPART (*BKC) 100 UNITS/ML SUB-Q (17:29)
--- NOTE | 2021-09-05 17:39 | PM.CNPUL ---
Assessment and Plan Assessment and plan (1) Pleural effusion: Code(s): J90 - Pleural effusion, not elsewhere classified Status: Acute Assessment and Plan: She has a large left pleural effusion, needs to have a diagnostic and therapeutic tap. Eliquis is being held with plans to perform this procedure tomorrow. In addition she also has large pericardial effusion. With both the pericardial and pleural effusion, connective tissue diseases is a consideration. I am ordering an MELISSA cascade to look for lupus and other associated illnesses which may cause both effusions. Given the large left pleural effusion this is probably due to a pneumonia or other infectious process. The fluid will be sent for variety of studies and chemistries. More evaluation after the fluid returned. Thank you for this consult. I look for to following this patient with you. She needs to have most of her psychiatric medications re-started. She is sad and crying, scared. restarted: gabapetin 100 mg TID, olanzapine 2.5 mg HS, sertraline 100 mg HS, amitriptyline 10 mg HS, and divalproex spsrinkles 250 mg BID. I did not re-start donepezil due to severe drug interaction with the azithromycin and donepezil is not essential, only slows the progression towards dementia. I collaobrated with Dr Alexander, and he was fine wiht having these re-started. History of Present Illness History of Present Illness Consult date: 09/05/21 Requesting physician: Doris Alexander MD Reason for consult: pleural effusion Chief complaint: left pleural effusion, paricardial effusion, hypok Narrative: Patient was seen 09/05/2021 at 12:45 pm NEW: Montse Zarate is a 70 year old woman who was admitted with a pericardial and pleural effusion. Dr Alexander requested a pulmonary consultation for evaluation and treatment of the left pleural effusion. She has not had the thoracentesis yet due to being on Eliquis. She is scheduled to have this 09/06/2021. 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 She tries to engage, tries to cooperate with interviewer, however with her hearing loss and anxiety, it was difficult to get much history. She has had a Left masetectomy and appears moderately shosrt of breath with a resp rate of 27 and accessory muscle use. She was first seen at [facility], was sent back to her shelter without having a thoracentesis. SHe is now at [facility] for another evaluation. PMH: atrial fibrillation on Eliquis, HTN, asthma/COPD on O2 3 L/min, DM type 2. ? WBC 11.6 with a left shift, hemoglobin 8.9 grams/deciliter, hematocrit 30.1%. Platelets [id number] sodium 136 potassium 3.4 chloride 97 carbon dioxide 39 BUN 17 creatinine 0.7 glucose 133. On September 04 arterial blood gas on 4 L showed a pH of 7.43 pCO2 47.9 PO2 102.1. She has a compensated pH with a respiratory acidosis with metabolic compensation. She has more than adequate oxygenation on 4 liters/minute. CXR: large left pleural effusion with compressive atelectatic and a large pericardial effusion. EKG revealed normal sinus rhythm with diffuse T-wave flattening.? Review of Systems Review of Systems: Not obtainable due to her baseline cognition, hearing loss, and crying. She cannot stay focused and cannot understand when I am yelling into her LEFT ear which is the good ear. She gets about 1/4 of what I am asking. [facility], [facility] Past Medical History Medical History (Updated 09/06/21 @ 12:52 by Jun Madsen MD) Asthma-COPD overlap syndrome Atrial fibrillation Chronic respiratory failure with hypoxia, on home O2 therapy Dementia Diabetes mellitus type 2 in obese Hypertension Surgical History Surgical History (Updated 09/05/21 @ 19:05 by Yolanda Villalobos MD) History of mastectomy Social History Social
[2021-09-05] MEDS: OLANZapine 2.5 MG TABLET PO (20:20)
[2021-09-05] MEDS: SERTRALINE HCL 50 MG TABLET 100 MG PO (20:20)
[2021-09-05] MEDS: AMITRIPTYLINE HCL 10 MG TABLET PO (20:20)
[2021-09-05] MEDS: DIVALPROEX SODIUM SPRINKLE 125 MG CAP.DR 250 MG PO (20:20)
[2021-09-05] MEDS: MELATONIN 5 MG TABLET PO (20:22)
[2021-09-06] VITALS (13 sets, daily range): BP systolic 97–146; BP diastolic 61–131; PULSE 80–95; RESP 20–25; TEMP 35.5–36.9; O2SAT 85–99
[2021-09-06 04:55] LABS: Basophils Percent Auto 0.3 % (0.2-1.2); Eosinophils Absolute Auto 0.2 K/mm3 (0-0.3); Eosinophils Percent Auto 1.5 % (0-4.4); Hemoglobin 8.9 g/dL (12.0-15.0); Immature Granulocyte Absolute 0.05 K/mm3 (0.00-0.031); Immature Granulocyte Percent A 0.5 % (0-0.5); Lymphocytes Absolute Auto 1.81 K/mm3 (0.9-3.2); Lymphocytes Percent Auto 16.7 % (18.3-44.2); Mean Corpuscular HGB Conc 30.7 g/dl (32-36); Mean Corpuscular Hemoglobin 28.2 pg (26-34); Mean Corpuscular Volume 91.8 fl (80-100); Mean Platelet Volume 8.9 fl (7.4-10.4); Monocytes Absolute Auto 0.8 K/mm3 (0.1-0.6); Monocytes Percent Auto 6.9 % (2.6-8.5); Neutrophils Percent Auto 74.1 % (45.5-73.1); Platelet Count Result 317 k/mm3 (150-375); Red Blood Count 3.16 M/mm3 (4.2-5.4); Red Cell Distribution Width 15.2 % (11.5-14.5); White Blood Count 10.8 K/mm3 (4.5-10.0)
[2021-09-06 05:05] LABS: INR 1.7; Prothrombin Time 19.7 Seconds (11.1-14.7)
[2021-09-06 05:06] LABS: Partial Thromboplastin Time 43.2 SECONDS (22.3-36.8)
[2021-09-06 05:07] LABS: Alanine Aminotransferase 31 U/L (6-35); Albumin Level 3.1 g/dL (3.5-5.1); Alkaline Phosphatase 87 U/L (38-126); Anion Gap 2 mmol/L (8-16); Aspartate Amino Transferase 40 U/L (14-36); Bilirubin,Total 0.5 mg/dL (0.2-1.3); Blood Urea Nitrogen 11 mg/dL (7-17); Calcium 8.3 mg/dL (8.4-10.2); Carbon Dioxide 38 mmol/L (22-30); Chloride 93 mmol/L (98-107); Estimated Glomerular Filt Rate > 60; Glucose 184 mg/dL (65-110); Magnesium 1.3 mg/dL (1.6-2.3); Phosphorus 3.1 mg/dL (2.5-4.5); Potassium 4.1 mmol/L (3.4-5.0); Sodium 133 mmol/L (137-145)
--- NOTE | 2021-09-06 07:17 | PM.PNCARD ---
Progress Note: A&P Assessment and Plan (1) Pleural effusion: Code(s): J90 - Pleural effusion, not elsewhere classified Status: Acute Additional Plan this is an elderly 70-year-old lady who has chronic psychiatric issues and some dementia as well. She has a very large left pleural effusion which is going to be tapped today. Her anticoagulation has now been held for 48 hours. Echocardiogram did show some pericardial fluid as well which looked complex with fibrin is material in the pericardium as well as some thickened soft tissue density on the visceral pericardium. She does not seem to be symptomatic or hemodynamically compromised by any of this. Will follow with you while she is in the hospital but at this time there are no other specific cardiac recommendations. Izaiah Lou MD [facility] Subjective Date/time seen: Date of service:09/06/21 07:17 Interval history: Follow-up visit in this 70-year-old woman with: Very large left pleural effusion plans for diagnostic and therapeutic tap of this today with Radiology. the patient is resting comfortably in ICU room 2. No complaints of any kind this morning. More comfortable this morning less agitated Exam Const: General: comfortable and no acute distress Other: pleasant elderly lady resting comfortably HENMT: Mouth: Yes moist mucous membranes Eyes: Sclera: sclerae normal Neck: Neck: supple and no JVD Resp: Effort & Inspection: normal respiratory effort Other: absent breath sounds left hemithorax Cardio: Rate: regular rate Rhythm: regular rhythm GI: GI Palp: Yes Soft to palpation Auscultation: normal bowel sounds Neuro: Other: patient is responsive and answers questions appropriately. Has poor understanding of the current healthcare situation Objective Data Vital Signs Vital Signs: Vital Signs - 24 hr 09/05/21 08:00 09/05/21 08:00 09/05/21 11:41 Temperature 36.2 C L 36.4 C L Pulse Rate 79 81 86 Respiratory Rate 22 H 27 H Blood Pressure 153/74 H 157/82 H Pulse Oximetry 98 99 Oxygen Delivery Oxygen Flow Rate 09/05/21 08:00 09/05/21 10:00 09/05/21 12:00 Temperature Pulse Rate 82 Respiratory Rate Blood Pressure Pulse Oximetry 99 98 Oxygen Delivery Nasal Cannula Nasal Cannula Oxygen Flow Rate 3 3 09/05/21 12:00 09/05/21 16:00 09/05/21 16:00 Temperature 36.3 C L Pulse Rate 86 94 Respiratory Rate 24 H Blood Pressure 137/75 Pulse Oximetry 96 96 Oxygen Delivery Nasal Cannula Oxygen Flow Rate 3 09/05/21 14:00 09/05/21 16:00 09/05/21 18:00 Temperature Pulse Rate 90 95 95 Respiratory Rate Blood Pressure Pulse Oximetry Oxygen Delivery Oxygen Flow Rate 09/05/21 20:00 09/05/21 20:00 09/05/21 20:00 Temperature Pulse Rate 100 100 Respiratory Rate 24 H Blood Pressure Pulse Oximetry 96 96 Oxygen Delivery Nasal Cannula Nasal Cannula Oxygen Flow Rate 3 3 09/05/21 20:00 09/05/21 22:00 09/06/21 00:00 Temperature 35.9 C L Pulse Rate 100 91 87 Respiratory Rate 24 H Blood Pressure 157/137 H Pulse Oximetry 96 Oxygen Delivery Oxygen Flow Rate 09/06/21 00:00 09/06/21 00:00 09/06/21 02:00 Temperature 35.5 C L Pulse Rate 87 87 90 Respiratory Rate 22 H 22 H Blood Pressure 111/61 Pulse Oximetry 95 95 Oxygen Delivery Nasal Cannula Oxygen Flow Rate 3 09/06/21 04:00 09/06/21 04:00 09/06/21 04:00 Temperature 36.0 C L Pulse Rate 84 84 84 Respiratory Rate 20 20 Blood Pressure 108/65 Pulse Oximetry 96 96 Oxygen Delivery Nasal Cannula Oxygen Flow Rate 3 09/06/21 06:00 Temperature Pulse Rate 81 Respiratory Rate Blood Pressure Pulse Oximetry Oxygen Delivery Oxygen Flow Rate Intake/Output Intake/Output: Intake & Output 09/03/21 09/04/21 09/05/21 09/06/21 23:59 23:59 23:59 23:59 Intake Total 490 1040 30 Output Total 400 1000 425 Balance 90 40 -395 Meds/Results Medication
[2021-09-06 07:58] LABS: Glucose Point of Care 160 mg/dl (65-105)
[2021-09-06] MEDS: MAGNESIUM SULF 2 GM/WATER 50ML 2 GM/50 ML BAG IVPB (09:19)
[2021-09-06] MEDS: GABAPENTIN 100 MG CAPSULE PO ×3 (09:21→17:30)
[2021-09-06] MEDS: DIVALPROEX SODIUM SPRINKLE 125 MG CAP.DR 250 MG PO ×2 (09:21→20:12)
[2021-09-06 12:31] LABS: Glucose Point of Care 227 mg/dl (65-105)
--- NOTE | 2021-09-06 12:47 | PM.IMPN ---
Progress Note: A&P Assessment and Plan (1) Pleural effusion: Code(s): J90 - Pleural effusion, not elsewhere classified Status: Acute Assessment and Plan: Large left-sided pleural effusion 09/07 S/P Successful ultrasound-guided thoracentesis yielding 950 mL of slightly green-tinged yellowish fluid. -thoracentesis delayed as patient was on anticoagulation -continue supplemental oxygen -continue ceftriaxone and azithromycin for possible pneumonia as seen on chest x-ray -fluid studies are pending (2) Acute pericardial effusion: Code(s): I30.9 - Acute pericarditis, unspecified Status: Acute Assessment and Plan: 09/05/2021 Echocardiogram: EF of 50-55%, small to moderate size pericardial effusion -no active acute cardiac issues from the pericardial effusion per Cardiology, NO specific cardiac recommendations at this time (3) Elevated brain natriuretic peptide (BNP) level: Code(s): R79.89 - Other specified abnormal findings of blood chemistry Status: Acute Assessment and Plan: ProBNP of 852 Echo suggests diastolic dysfunction Will give low-dose of diuretic Cardiology following (4) Abnormal finding on urinalysis: Code(s): R82.90 - Unspecified abnormal findings in urine Status: Acute Assessment and Plan: Urine cultures have been obtained -patient on ceftriaxone (5) Acute hypokalemia: Code(s): E87.6 - Hypokalemia Status: Acute Assessment and Plan: Improved after replacement (6) Leukocytosis: Code(s): D72.829 - Elevated white blood cell count, unspecified Status: Acute Assessment and Plan: Leukocytosis trending down could be related to pneumonia, UTI or stress response from the large pleural effusion (7) Electrolyte abnormality: Code(s): E87.8 - Other disorders of electrolyte and fluid balance, not elsewhere classified Status: Acute Assessment and Plan: Magnesium replacement ordered Additional Plan Code status DNR Patient was evaluated by PT and OT and appears to be at her baseline This dictation may have been done utilizing a voice recognition system. Attempts have been made to correct errors. However, there may be uncorrected grammatical, spelling, and recognition errors present. Due to a high probability of clinically significant, life threatening deterioration, the patient required my highest level of preparedness to intervene emergently and I personally spent this critical care time directly and personally managing the patient. This critical care time included obtaining a history; examining the patient; pulse oximetry; ordering and review of studies; arranging urgent treatment with development of a management plan; evaluation of patient's response to treatment; frequent reassessment; and discussions with other providers. It was exclusive of separately billable procedures and treating other patients and teaching time. Please see Assessment and Plan section and the rest of the note for further information on patient assessment and treatment Subjective Date/time seen: 09/06/21 12:47 Patient is afebrile overnight and is on nasal cannula. She is sleeping but easily arousable. She is pleasantly confused. She notes no to pain or shortness of breath. She states that she wants to go back to sleep. She is unable to provide any detailed history review of systems. Her orientation has been fluctuating depending on the time of the day. Her urine output is adequate. Interval history: 70-year-old female with history of AFib, hypertension, COPD, asthma, diabetes now admitted with large left pleural effusion Review of Systems Review of Systems: ROS unobtainable: Yes unobtainable due to mental status Exam Narrative: General: Pleasant patient in no acute distress, hard of hearing HEENT: Pupils equal and reactive, sclera is clear Neck: Supple Respiratory: Decreased breath sounds on left. Better air
[2021-09-06 12:51] LABS: Appearance Pleural Fluid Cloudy (Clear); Color Pleural Fluid Yellow (Colorless); Pleural fluid source Pleural fluid
[2021-09-06 13:01] LABS: Lymphocytes Pleural Fluid 12 %; Macrophages Pleural Fluid 13 %; Mesothelial Cells Pleural Flui 8 %; Monocytes Pleural Fluid 4 %; Neutrophils Pleural Fluid 63 % (0-25)
[2021-09-06] MEDS: FUROSEMIDE INJ 40 MG/4 ML VIAL IV PUSH (13:16)
[2021-09-06] MEDS: INSULIN ASPART (*BKC) 100 UNITS/ML SUB-Q (13:16)
[2021-09-06 16:14] LABS: Glucose Point of Care 185 mg/dl (65-105)
[2021-09-06 17:35] LABS: Glucose Point of Care 184 mg/dl (65-105)
[2021-09-06] MEDS: OLANZapine 2.5 MG TABLET PO (20:12)
[2021-09-06] MEDS: SERTRALINE HCL 50 MG TABLET 100 MG PO (20:12)
[2021-09-06] MEDS: AMITRIPTYLINE HCL 10 MG TABLET PO (20:12)
[2021-09-06] MEDS: MELATONIN 5 MG TABLET PO (20:12)
[2021-09-07] VITALS (8 sets, daily range): BP systolic 103–120; BP diastolic 59–75; PULSE 82–97; RESP 16–18; TEMP 36.1–36.7; O2SAT 95–99
[2021-09-07 05:01] LABS: Hematocrit 30.1 % (37.0-47.0); Hemoglobin 9.1 g/dL (12.0-15.0); Mean Corpuscular HGB Conc 30.2 g/dl (32-36); Mean Corpuscular Hemoglobin 27.8 pg (26-34); Platelet Count Result 350 k/mm3 (150-375); Red Blood Count 3.27 M/mm3 (4.2-5.4); Red Cell Distribution Width 15.2 % (11.5-14.5); White Blood Count 9.9 K/mm3 (4.5-10.0)
[2021-09-07 05:16] LABS: Alanine Aminotransferase 27 U/L (6-35); Albumin Level 3.1 g/dL (3.5-5.1); Alkaline Phosphatase 94 U/L (38-126); Aspartate Amino Transferase 31 U/L (14-36); Bilirubin,Total 0.4 mg/dL (0.2-1.3); Blood Urea Nitrogen 11 mg/dL (7-17); Calcium 8.4 mg/dL (8.4-10.2); Carbon Dioxide > 40 mmol/L (22-30); Chloride 89 mmol/L (98-107); Estimated Glomerular Filt Rate > 60; Glucose 217 mg/dL (65-110); Magnesium 1.5 mg/dL (1.6-2.3); Phosphorus 3.7 mg/dL (2.5-4.5); Potassium 3.8 mmol/L (3.4-5.0); Sodium 131 mmol/L (137-145)
[2021-09-07 08:37] LABS: Glucose Point of Care 211 mg/dl (65-105)
[2021-09-07 08:54] LABS: pH Pleural Fluid 7.289 (7.210-7.500)
[2021-09-07] MEDS: MAGNESIUM SULF 2 GM/WATER 50ML 2 GM/50 ML BAG IVPB (09:13)
[2021-09-07] MEDS: AZITHROMYCIN 250 MG TABLET 500 MG PO (09:13)
[2021-09-07] MEDS: DIVALPROEX SODIUM SPRINKLE 125 MG CAP.DR 250 MG PO ×2 (09:13→20:04)
[2021-09-07] MEDS: POTASSIUM CHLORIDE 20 MEQ PACKET (FOR LIQUID) PO (09:13)
[2021-09-07] MEDS: GABAPENTIN 100 MG CAPSULE PO ×2 (09:13→12:00)
[2021-09-07] MEDS: INSULIN ASPART (*BKC) 100 UNITS/ML SUB-Q ×3 (09:19→16:13)
[2021-09-07] MEDS: DOCUSATE SODIUM LIQ 100 MG/10 ML UDC PO ×2 (09:23→20:03)
[2021-09-07] MEDS: acetaZOLAMIDE SODIUM FOR INJ 500 MG VIAL IV PUSH (09:23)
--- NOTE | 2021-09-07 11:21 | PM.PNCARD ---
Progress Note: A&P Assessment and Plan (1) Pleural effusion: Code(s): J90 - Pleural effusion, not elsewhere classified Status: Acute Plan 70-year-old lady with a very large left pleural effusion. 1 L of this was withdrawn yesterday for analysis. Chest x-ray shows shows a quite a large amount of fluid remaining. Analysis of this is pending. No active cardiac issues at this time will continue to follow with you while she is in the hospital Izaiah Lou MD [facility] Subjective Date/time seen: Date of service:09/07/21 11:21 Interval history: 70-year-old female with history of AFib, hypertension, COPD, asthma, diabetes now admitted with large left pleural effusion Patient is comfortable in her room ICU 2. She underwent thoracentesis of just under 1 L of pleural fluid yesterday in Radiology. A pleural fluid analysis is pending. No hemodynamic/ cardiac issues according to the staff Exam Const: General: comfortable and no acute distress Other: obese elderly lady not in any distress HENMT: Mouth: Yes moist mucous membranes Eyes: Sclera: sclerae normal Pupils: Equal, round and reactive pupils present Neck: Neck: supple and no JVD Resp: Auscultation: diminished lung sounds Other: diminished breath sounds on the left hemithorax Cardio: Rate: regular rate Rhythm: regular rhythm GI: GI Palp: Yes Soft to palpation Auscultation: normal bowel sounds Skin: General skin exam: normal color Neuro: Other: alert and responsive speech difficult to understand Objective Data Vital Signs Vital Signs: Vital Signs - 24 hr 09/06/21 12:00 09/06/21 12:00 09/06/21 14:00 Temperature Pulse Rate 84 84 88 Respiratory Rate 20 Blood Pressure 114/86 Pulse Oximetry 96 Oxygen Delivery Oxygen Flow Rate 09/06/21 16:00 09/06/21 16:00 09/06/21 20:00 Temperature 36.9 C Pulse Rate 80 84 91 Respiratory Rate 20 Blood Pressure 108/74 Pulse Oximetry 97 Oxygen Delivery Oxygen Flow Rate 09/06/21 20:00 09/07/21 00:00 09/07/21 00:00 Temperature 36.1 C L Pulse Rate 91 86 86 Respiratory Rate 23 H 18 Blood Pressure 120/75 Pulse Oximetry 85 L 95 Oxygen Delivery Nasal Cannula Oxygen Flow Rate 3 09/07/21 04:00 09/07/21 08:00 09/07/21 08:00 Temperature 36.5 C Pulse Rate 88 83 Respiratory Rate 18 Blood Pressure 117/75 Pulse Oximetry 99 99 Oxygen Delivery Nasal Cannula Oxygen Flow Rate 3 09/07/21 08:00 Temperature Pulse Rate 82 Respiratory Rate Blood Pressure Pulse Oximetry Oxygen Delivery Oxygen Flow Rate Intake/Output Intake/Output: Intake & Output 09/04/21 09/05/21 09/06/21 09/07/21 23:59 23:59 23:59 23:59 Intake Total 490 1040 550 380 Output Total 400 1000 2675 400 Balance 90 40 -2125 -20 Meds/Results Medications: Active Medications Generic Name Dose Route Start Last Admin Trade Name Freq PRN Reason Stop Dose Admin Acetaminophen 650 mg 09/04/21 08:42 09/04/21 21:24 Acetaminophen 325 Mg Tablet PO 650 mg Q6H PRN Administration Mild Pain (1-3) or Fever Amitriptyline HCl 10 mg 09/05/21 21:00 09/06/21 20:12 Amitriptyline Hcl 10 Mg Tablet PO 10 mg HS LYNN Administration Azithromycin 500 mg 09/07/21 09:00 09/07/21 09:13 Azithromycin 250 Mg Tablet PO 09/10/21 08:59 500 mg DAILY LYNN Administration Bisacodyl 10 mg 09/07/21 08:39 Bisacodyl 10 Mg Suppository RECTAL QAM PRN Constipation Dextrose 12.5 gm 09/05/21 16:22 Dextrose 50% 25 Gm/50 Ml Syringe IV PUSH PRN PRN Hypoglycemia Protocol Divalproex Sodium 250 mg 09/05/21 21:00 09/07/21 09:13 Divalproex Sodium Sprinkle 125 Mg Cap.Dr PO 250 mg Q12HR LYNN Administration Docusate Sodium 100 mg 09/07/21 09:00 09/07/21 09:23 Docusate Sodium Liq 100 Mg/10 Ml Udc PO 100 mg Q12HR LYNN Administration Gabapentin 100 mg 09/06/21 09:00 09/07/21 09:13 Gabapentin 100 Mg C
--- NOTE | 2021-09-07 11:38 | PM.IMPN ---
Progress Note: A&P Assessment and Plan (1) Pleural effusion: Code(s): J90 - Pleural effusion, not elsewhere classified Status: Acute Assessment and Plan: Large left-sided pleural effusion 09/07 S/P Successful ultrasound-guided thoracentesis yielding 950 mL of slightly green-tinged yellowish fluid. -thoracentesis delayed as patient was on anticoagulation -continue supplemental oxygen -continue antibiotics for possible pneumonia as seen on chest x-ray. Was switched to p.o. today -some fluid studies are pending. G stain was negative. Cultures pending -patient still has residual pleural effusion. Since patient is at baseline oxygen need. Will resume anticoagulation and not pursue further thoracentesis -continue diuretics (2) Acute pericardial effusion: Code(s): I30.9 - Acute pericarditis, unspecified Status: Acute Assessment and Plan: 09/05/2021 Echocardiogram: EF of 50-55%, small to moderate size pericardial effusion -no active acute cardiac issues from the pericardial effusion per Cardiology, NO specific cardiac recommendations at this time (3) Elevated brain natriuretic peptide (BNP) level: Code(s): R79.89 - Other specified abnormal findings of blood chemistry Status: Acute Assessment and Plan: ProBNP of 852 Echo suggests diastolic dysfunction Continue low-dose of diuretic Cardiology following (4) Abnormal finding on urinalysis: Code(s): R82.90 - Unspecified abnormal findings in urine Status: Acute Assessment and Plan: Urine cultures have been obtained -patient on antibiotics (5) Acute hypokalemia: Code(s): E87.6 - Hypokalemia Status: Acute Assessment and Plan: Improved after replacement (6) Leukocytosis: Code(s): D72.829 - Elevated white blood cell count, unspecified Status: Acute Assessment and Plan: Leukocytosis trending down could be related to pneumonia, UTI or stress response from the large pleural effusion (7) Electrolyte abnormality: Code(s): E87.8 - Other disorders of electrolyte and fluid balance, not elsewhere classified Status: Acute Assessment and Plan: Magnesium replacement ordered (8) Constipation: Code(s): K59.00 - Constipation, unspecified Status: Acute Assessment and Plan: Add MiraLax and Dulcolax suppository p.r.n. Plan DVT prophylaxis -resume apixaban Additional Plan Code status DNR Patient was evaluated by PT and OT and appears to be at her baseline and was discharged This dictation may have been done utilizing a voice recognition system. Attempts have been made to correct errors. However, there may be uncorrected grammatical, spelling, and recognition errors present. Due to a high probability of clinically significant, life threatening deterioration, the patient required my highest level of preparedness to intervene emergently and I personally spent this critical care time directly and personally managing the patient. This critical care time included obtaining a history; examining the patient; pulse oximetry; ordering and review of studies; arranging urgent treatment with development of a management plan; evaluation of patient's response to treatment; frequent reassessment; and discussions with other providers. It was exclusive of separately billable procedures and treating other patients and teaching time. Please see Assessment and Plan section and the rest of the note for further information on patient assessment and treatment Subjective Date/time seen: 09/07/21 11:38 Patient had a thoracentesis done yesterday and 950 mL of pleural fluid was removed Her overall status is unchanged and she is afebrile overnight. She complains of constipation this morning and is requesting stool softener. She notes her head no to pain or shortness of breath. She denies any cough. She is very hard of hearing and pleasantly confused. Review of system is limited.
[2021-09-07 11:59] LABS: Glucose Point of Care 331 mg/dl (65-105)
[2021-09-07] MEDS: FUROSEMIDE INJ 40 MG/4 ML VIAL IV PUSH (12:00)
[2021-09-07 16:07] LABS: Glucose Point of Care 266 mg/dl (65-105)
--- NOTE | 2021-09-07 18:15 | PC.NURSE ---
This patient, Montse Zarate, was transferred to [305-1] on 09/07/21 at 1815. Personal belongings sent with patient. Report given to [Itzel MENDEZ]. Appropriate documentation sent with patient.
--- NOTE | 2021-09-07 19:56 | PM.PNPUL ---
Progress Note: A&P Assessment and Plan (1) Pleural effusion: Code(s): J90 - Pleural effusion, not elsewhere classified Status: Acute Assessment and Plan: Large left-sided pleural effusion, had a thoracentesis September 07, with 950 ml green tinges fluid, pH on low side, 2.89; pH of 7.2 is cut off for empyema. The cell count was not performed, not sure if the fluid was clumped or why it was not performed. This is improtant information. The chemistries are not back, and this information is important also. She may have a parapneumonic effusion; I recommend a repeat tap next week, hold Eliquis. She has had 1 dose. I talked with Dr Eugene. She remains on 3 L/min, and overall looks better. She continues with diuresis. Willl continue to follw. Subjective Date/time seen: 09/08/21 14:00 Hospital follow up; Montse Zarate is a 70 year old woman who was admitted with a pericardial and pleural effusion. She has a large left pleural effusion that was tapped, and although many of the labs are still pending, the pH is below normal 7.289. The differential shows that the cell count was not performed, so no count on rbc or wbc; differential shows 63% neutrophils HIGH, 12% lymphocytes, 4% monocytes, 13 % macrophages and 8 pleural mesothelial cells. She feels and looks better than she did on presentation. She is no longer crying and tearful. She is sitting up in bed, not in distress, 3 L/min; she is oriented to place. It is difficult to have a longer conversation as she is very hard of hearing and maybe demented. PMH: atrial fibrillation on Eliquis, HTN, asthma/COPD on O2 3 L/min, DM type 2. ? Review of Systems Review of Systems: All systems reviewed & are unremarkable except as noted in HPI and below (HPI) Exam Narrative: GEN: Alert, oriented, no distress and no accessory muscle use. HEENT: pupils are equal, EOMI, symmetrical face; oral membranes moist, Mallampati II airway NECK: Trachea is midline CHEST: Equal air entry, symmetric excursion, clearer in bases. CV: Regular S1S2 no m/g/r ABD : (+) bowel sounds Extremities : no clubbing or cyanosis; she has 2+ diffuse edema, skin is pale, cool to touch PSYCH: Pleasant, alert, very hard of hearing. Says she feels ok and denies being short of breath. Objective Data Vital Signs Vital Signs: Vital Signs - 24 hr 09/06/21 20:00 09/06/21 20:00 09/07/21 00:00 Temperature Pulse Rate 91 91 86 Respiratory Rate 23 H Blood Pressure Pulse Oximetry 85 L Oxygen Delivery Nasal Cannula Oxygen Flow Rate 3 09/07/21 00:00 09/07/21 04:00 09/07/21 08:00 Temperature 36.1 C L 36.5 C Pulse Rate 86 88 83 Respiratory Rate 18 18 Blood Pressure 120/75 117/75 Pulse Oximetry 95 99 Oxygen Delivery Oxygen Flow Rate 09/07/21 08:00 09/07/21 08:00 09/07/21 12:00 Temperature Pulse Rate 82 90 Respiratory Rate Blood Pressure Pulse Oximetry 99 Oxygen Delivery Nasal Cannula Oxygen Flow Rate 3 09/07/21 16:00 09/07/21 17:30 Temperature 36.7 C 36.1 C L Pulse Rate 95 97 Respiratory Rate 18 16 Blood Pressure 103/65 105/69 Pulse Oximetry 99 97 Oxygen Delivery Oxygen Flow Rate Intake/Output Intake/Output: Intake & Output 09/04/21 09/05/21 09/06/21 09/07/21 23:59 23:59 23:59 23:59 Intake Total 490 1040 550 380 Output Total 400 1000 8953 7099 Balance 90 99 -5268 -9395 Meds/Results Medications: Active Medications Generic Name Dose Route Start Last Admin Trade Name Freq PRN Reason Stop Dose Admin Acetaminophen 650 mg 09/04/21 08:42 09/04/21 21:24 Acetaminophen 325 Mg Tablet PO 650 mg Q6H PRN Administration Mild Pain (1-3) or Fever Amitriptyline HCl 10 mg 09/05/21 21:00 09/06/21 20:12 Amitriptyline Hcl 10 Mg Tablet PO 10 mg HS LYNN Administration Amoxicillin/Clavulanate Potassium 1 tablet 09/07/21 21:00 Amoxicillin/Clavulan
[2021-09-07] MEDS: AMOXICILLIN/CLAVULANATE K 875-125 MG TAB 1 TABLET PO (20:03)
[2021-09-07] MEDS: APIXABAN 5 MG TABLET PO (20:03)
[2021-09-07] MEDS: SERTRALINE HCL 50 MG TABLET 100 MG PO (20:03)
[2021-09-07] MEDS: AMITRIPTYLINE HCL 10 MG TABLET PO (20:03)
[2021-09-07] MEDS: OLANZapine 2.5 MG TABLET PO (20:03)
[2021-09-07 22:15] LABS: Glucose Point of Care 230 mg/dl (65-105)
[2021-09-08] VITALS (10 sets, daily range): BP systolic 101–110; BP diastolic 55–63; PULSE 66–90; RESP 16–20; TEMP 36.1–36.3; O2SAT 91–100
[2021-09-08 07:55] LABS: Hematocrit 30.4 % (37.0-47.0); Hemoglobin 9.2 g/dL (12.0-15.0); Mean Corpuscular HGB Conc 30.3 g/dl (32-36); Mean Corpuscular Hemoglobin 27.3 pg (26-34); Mean Corpuscular Volume 90.2 fl (80-100); Mean Platelet Volume 9.1 fl (7.4-10.4); Platelet Count Result 397 k/mm3 (150-375); Red Blood Count 3.37 M/mm3 (4.2-5.4); Red Cell Distribution Width 15.4 % (11.5-14.5); White Blood Count 10.6 K/mm3 (4.5-10.0)
[2021-09-08 08:03] LABS: Alanine Aminotransferase 29 U/L (6-35); Albumin Level 3.1 g/dL (3.5-5.1); Alkaline Phosphatase 98 U/L (38-126); Anion Gap 2 mmol/L (8-16); Aspartate Amino Transferase 29 U/L (14-36); Bilirubin,Total 0.5 mg/dL (0.2-1.3); Blood Urea Nitrogen 12 mg/dL (7-17); Calcium 8.5 mg/dL (8.4-10.2); Carbon Dioxide 37 mmol/L (22-30); Chloride 91 mmol/L (98-107); Estimated Glomerular Filt Rate > 60; Glucose 224 mg/dL (65-110); Magnesium 1.6 mg/dL (1.6-2.3); Phosphorus 4.2 mg/dL (2.5-4.5); Potassium 3.4 mmol/L (3.4-5.0); Sodium 130 mmol/L (137-145)
[2021-09-08 09:06] LABS: Glucose Point of Care 248 mg/dl (65-105)
[2021-09-08] MEDS: APIXABAN 5 MG TABLET PO (09:20)
[2021-09-08] MEDS: POTASSIUM CHLORIDE 20 MEQ TABLET 40 MEQ PO (09:20)
[2021-09-08] MEDS: INSULIN ASPART (*BKC) 100 UNITS/ML SUB-Q ×3 (09:20→17:24)
[2021-09-08] MEDS: GABAPENTIN 100 MG CAPSULE PO ×3 (09:20→17:24)
[2021-09-08] MEDS: AMOXICILLIN/CLAVULANATE K 875-125 MG TAB 1 TABLET PO ×2 (09:21→20:17)
[2021-09-08] MEDS: DIVALPROEX SODIUM SPRINKLE 125 MG CAP.DR 250 MG PO ×2 (09:21→20:16)
[2021-09-08] MEDS: DOCUSATE SODIUM LIQ 100 MG/10 ML UDC PO ×2 (09:23→20:17)
[2021-09-08] MEDS: AMIODARONE HCL 200 MG TABLET BY MOUTH ×2 (10:14→17:25)
[2021-09-08] MEDS: DONEPEZIL HCL 10 MG TABLET BY MOUTH (10:14)
[2021-09-08] MEDS: PANTOPRAZOLE 40 MG TABLET PO ×2 (10:14→17:25)
[2021-09-08] MEDS: MAGNESIUM OXIDE 400 MG TABLET PO (10:15)
[2021-09-08] MEDS: FUROSEMIDE 40 MG TABLET BY MOUTH (10:15)
[2021-09-08] MEDS: cycloSPORINE 0.4 ML OPHTH SOLUTION 2 DROP EACH EYE ×2 (10:15→17:25)
[2021-09-08] MEDS: DOXYCYCLINE HYCLATE 100 MG TABLET PO ×2 (10:15→20:16)
--- NOTE | 2021-09-08 12:02 | PM.IMPN ---
Progress Note: A&P Assessment and Plan (1) Pleural effusion: Code(s): J90 - Pleural effusion, not elsewhere classified Status: Acute Assessment and Plan: Large left-sided pleural effusion 09/07 S/P Successful ultrasound-guided thoracentesis yielding 950 mL of slightly green-tinged yellowish fluid. -thoracentesis delayed as patient was on anticoagulation -continue supplemental oxygen -continue antibiotics for possible pneumonia as seen on chest x-ray. Was switched to p.o. today -some fluid studies are pending. G stain was negative. Cultures pending -patient still has residual pleural effusion. Since patient is at baseline oxygen need. Will resume anticoagulation and not pursue further thoracentesis -continue diuretics 09/08/2021 interval history: patient is 70-year-old female presented emergency department with complaint of shortness of breath was found to have pleural effusion status post ultrasound-guided thoracentesis on 09/06 yielding 950 mL of slightly green-tinged yellowish fluid, g stain was negative and cultures are pending, patient seen by pulmonology recommended to continue antibiotics for pneumonia, there was a concerned for pericardial effusion, patient was seen by piano professor and no cardiac issues, patient was transferred out of ICU now on medical floor, patient is a very hard of hearing and difficult to communicate however states feeling much better not as short of breath is when she arrived patient is chronically 3 L of oxygen and remained on 3 L of oxygen while in the hospital, will continue to monitor with follow-up on culture from pleural fluid patient seen by pulmonology and further recommendation to follow. (2) Acute pericardial effusion: Code(s): I30.9 - Acute pericarditis, unspecified Status: Acute Assessment and Plan: 09/05/2021 Echocardiogram: EF of 50-55%, small to moderate size pericardial effusion -no active acute cardiac issues from the pericardial effusion per Cardiology, NO specific cardiac recommendations at this time (3) Elevated brain natriuretic peptide (BNP) level: Code(s): R79.89 - Other specified abnormal findings of blood chemistry Status: Acute Assessment and Plan: ProBNP of 852 Echo suggests diastolic dysfunction Continue low-dose of diuretic Cardiology following (4) Abnormal finding on urinalysis: Code(s): R82.90 - Unspecified abnormal findings in urine Status: Acute Assessment and Plan: Urine cultures have been obtained -patient on antibiotics (5) Acute hypokalemia: Code(s): E87.6 - Hypokalemia Status: Acute Assessment and Plan: Improved after replacement (6) Leukocytosis: Code(s): D72.829 - Elevated white blood cell count, unspecified Status: Acute Assessment and Plan: Leukocytosis trending down could be related to pneumonia, UTI or stress response from the large pleural effusion (7) Electrolyte abnormality: Code(s): E87.8 - Other disorders of electrolyte and fluid balance, not elsewhere classified Status: Acute Assessment and Plan: Magnesium replacement ordered (8) Constipation: Code(s): K59.00 - Constipation, unspecified Status: Acute Assessment and Plan: Add MiraLax and Dulcolax suppository p.r.n. Plan DVT prophylaxis -resume apixaban Subjective Date/time seen: 09/08/21 12:02 09/08/2021 interval history: patient is 70-year-old female presented emergency department with complaint of shortness of breath was found to have pleural effusion status post ultrasound-guided thoracentesis on 09/06 yielding 950 mL of slightly green-tinged yellowish fluid, g stain was negative and cultures are pending, patient seen by pulmonology recommended to continue antibiotics for pneumonia, there was a concerned for pericardial effusion, patient was seen by piano professor and no cardiac issues, patient was transferred out of ICU now on medical martha
[2021-09-08 12:40] LABS: Glucose Point of Care 277 mg/dl (65-105)
[2021-09-08 16:58] LABS: Glucose Point of Care 290 mg/dl (65-105)
[2021-09-08] MEDS: OLANZapine 2.5 MG TABLET PO (20:16)
[2021-09-08] MEDS: ATORVASTATIN 20 MG TABLET BY MOUTH (20:16)
[2021-09-08] MEDS: SERTRALINE HCL 50 MG TABLET 100 MG PO (20:16)
[2021-09-08] MEDS: AMITRIPTYLINE HCL 10 MG TABLET PO (20:16)
[2021-09-08] MEDS: IPRATROPIUM BR 0.02% INH SOLN 0.5 MG/2.5 ML VIAL INHALATION (20:36)
[2021-09-08] MEDS: FLUTICASONE/SALMETEROL 115-21 MCG INHALER 1 PUFF 2 PUFF INHALATION (20:36)
[2021-09-08] MEDS: ALBUTEROL SULFATE NEB 2.5 MG/0.5 ML INH INHALATION (20:37)
[2021-09-08 21:07] LABS: Glucose Point of Care 265 mg/dl (65-105)
[2021-09-08 23:43] LABS: Albumin Pleural Fluid 1.9 g/dL
[2021-09-09] VITALS (16 sets, daily range): BP systolic 110–140; BP diastolic 59–78; PULSE 84–96; RESP 16–24; TEMP 36.1–36.6; O2SAT 94–97
[2021-09-09] MEDS: IPRATROPIUM BR 0.02% INH SOLN 0.5 MG/2.5 ML VIAL INHALATION ×4 (02:47→20:10)
[2021-09-09] MEDS: ALBUTEROL SULFATE NEB 2.5 MG/0.5 ML INH INHALATION ×4 (02:47→20:09)
[2021-09-09 06:51] LABS: Hematocrit 32.8 % (37.0-47.0); Hemoglobin 10.3 g/dL (12.0-15.0); Mean Corpuscular HGB Conc 31.4 g/dl (32-36); Mean Corpuscular Hemoglobin 27.3 pg (26-34); Mean Platelet Volume 9.6 fl (7.4-10.4); Platelet Count Result 419 k/mm3 (150-375); Red Blood Count 3.77 M/mm3 (4.2-5.4); Red Cell Distribution Width 15.6 % (11.5-14.5); White Blood Count 13.2 K/mm3 (4.5-10.0)
[2021-09-09 07:13] LABS: Alanine Aminotransferase 21 U/L (6-35); Albumin Level 2.8 g/dL (3.5-5.1); Alkaline Phosphatase 86 U/L (38-126); Anion Gap 8 mmol/L (8-16); Aspartate Amino Transferase 30 U/L (14-36); Bilirubin,Total 0.9 mg/dL (0.2-1.3); Blood Urea Nitrogen 16 mg/dL (7-17); Calcium 8.6 mg/dL (8.4-10.2); Carbon Dioxide 32 mmol/L (22-30); Chloride 88 mmol/L (98-107); Estimated Glomerular Filt Rate > 60; Glucose 273 mg/dL (65-110); Magnesium 1.5 mg/dL (1.6-2.3); Phosphorus 4.3 mg/dL (2.5-4.5); Potassium 4.6 mmol/L (3.4-5.0); Sodium 128 mmol/L (137-145)
[2021-09-09 08:09] LABS: Glucose Point of Care 295 mg/dl (65-105)
[2021-09-09] MEDS: ONDANSETRON INJ 4 MG/2 ML VIAL IV PUSH (08:27)
[2021-09-09] MEDS: OLANZapine 10 MG INJ VIAL 5 MG IM (08:52)
[2021-09-09] MEDS: INSULIN ASPART (*BKC) 100 UNITS/ML SUB-Q ×3 (08:52→17:28)
[2021-09-09] MEDS: AMOXICILLIN/CLAVULANATE K 875-125 MG TAB 1 TABLET PO ×2 (08:53→20:31)
[2021-09-09] MEDS: DOCUSATE SODIUM LIQ 100 MG/10 ML UDC PO ×2 (08:54→20:32)
[2021-09-09] MEDS: AMIODARONE HCL 200 MG TABLET BY MOUTH ×2 (08:55→17:28)
[2021-09-09] MEDS: cycloSPORINE 0.4 ML OPHTH SOLUTION 2 DROP EACH EYE ×2 (08:55→17:29)
[2021-09-09] MEDS: DIVALPROEX SODIUM SPRINKLE 125 MG CAP.DR 250 MG PO ×2 (08:55→20:31)
[2021-09-09] MEDS: GABAPENTIN 100 MG CAPSULE PO ×3 (08:55→17:27)
[2021-09-09] MEDS: DONEPEZIL HCL 10 MG TABLET BY MOUTH (08:55)
[2021-09-09] MEDS: DOXYCYCLINE HYCLATE 100 MG TABLET PO ×2 (08:55→20:30)
[2021-09-09] MEDS: MAGNESIUM OXIDE 400 MG TABLET PO (08:56)
[2021-09-09] MEDS: FUROSEMIDE 40 MG TABLET BY MOUTH (08:56)
[2021-09-09] MEDS: PANTOPRAZOLE 40 MG TABLET PO ×2 (08:56→17:29)
--- NOTE | 2021-09-09 11:12 | PM.IMPN ---
Progress Note: A&P Assessment and Plan (1) Pleural effusion: Code(s): J90 - Pleural effusion, not elsewhere classified Status: Acute Assessment and Plan: Large left-sided pleural effusion 09/07 S/P Successful ultrasound-guided thoracentesis yielding 950 mL of slightly green-tinged yellowish fluid. -thoracentesis delayed as patient was on anticoagulation -continue supplemental oxygen -continue antibiotics for possible pneumonia as seen on chest x-ray. Was switched to p.o. today -some fluid studies are pending. G stain was negative. Cultures pending -patient still has residual pleural effusion. Since patient is at baseline oxygen need. Will resume anticoagulation and not pursue further thoracentesis -continue diuretics 09/08/2021 interval history: patient is 70-year-old female presented emergency department with complaint of shortness of breath was found to have pleural effusion status post ultrasound-guided thoracentesis on 09/06 yielding 950 mL of slightly green-tinged yellowish fluid, g stain was negative and cultures are pending, patient seen by pulmonology recommended to continue antibiotics for pneumonia, there was a concerned for pericardial effusion, patient was seen by logistics program manager and no cardiac issues, patient was transferred out of ICU now on medical floor, patient is a very hard of hearing and difficult to communicate however states feeling much better not as short of breath is when she arrived patient is chronically 3 L of oxygen and remained on 3 L of oxygen while in the hospital, will continue to monitor with follow-up on culture from pleural fluid patient seen by pulmonology and further recommendation to follow. 09/09/2021 interval history: patient is 70-year-old female presented emergency department with complaint of shortness of breath was found to have pleural effusion status post ultrasound-guided thoracentesis on 09/06 yielding 950 mL of slightly green-tinged yellowish fluid, g stain was negative and cultures are pending, patient seen by pulmonology recommended to continue antibiotics for pneumonia, d/w slot ambassador concerned for empyma in pleural effusion, will thoracentesis on 09/11 And further recommendation to follow, there was a concerned for pericardial effusion, patient was seen by logistics program manager and no cardiac issues, patient was transferred out of ICU now on medical floor, patient is a very hard of hearing and difficult to communicate however today patient is slightly agitated will give the patient zyprexa 5mg IM x1. patient is chronically 3 L of oxygen and remained on 3 L of oxygen while in the hospital, will continue to monitor with follow-up on culture from pleural fluid patient seen by pulmonology and further recommendation to follow. (2) Acute pericardial effusion: Code(s): I30.9 - Acute pericarditis, unspecified Status: Acute Assessment and Plan: 09/05/2021 Echocardiogram: EF of 50-55%, small to moderate size pericardial effusion -no active acute cardiac issues from the pericardial effusion per Cardiology, NO specific cardiac recommendations at this time (3) Elevated brain natriuretic peptide (BNP) level: Code(s): R79.89 - Other specified abnormal findings of blood chemistry Status: Acute Assessment and Plan: ProBNP of 852 Echo suggests diastolic dysfunction Continue low-dose of diuretic Cardiology following (4) Abnormal finding on urinalysis: Code(s): R82.90 - Unspecified abnormal findings in urine Status: Acute Assessment and Plan: Urine cultures have been obtained -patient on antibiotics (5) Acute hypokalemia: Code(s): E87.6 - Hypokalemia Status: Acute Assessment and Plan: Improved after replacement (6) Leukocytosis: Code(s): D72.829 - Elevated white blood cell count, unspecified Status: Acute Assessment and Plan: Leukocytosis trending down could be related to pneumonia, UTI or stress r
[2021-09-09 12:03] LABS: Glucose Point of Care 327 mg/dl (65-105)
[2021-09-09 16:43] LABS: Glucose Point of Care 321 mg/dl (65-105)
[2021-09-09] MEDS: FLUTICASONE/SALMETEROL 115-21 MCG INHALER 1 PUFF 2 PUFF INHALATION (20:13)
[2021-09-09 20:25] LABS: Glucose Pleural Fluid 173 mg/dL; LDH Pleural Fluid 147 U/L
[2021-09-09] MEDS: OLANZapine 2.5 MG TABLET PO (20:30)
[2021-09-09] MEDS: SERTRALINE HCL 50 MG TABLET 100 MG PO (20:30)
[2021-09-09] MEDS: ATORVASTATIN 20 MG TABLET BY MOUTH (20:31)
[2021-09-09] MEDS: AMITRIPTYLINE HCL 10 MG TABLET PO (20:33)
[2021-09-09 20:42] LABS: Glucose Point of Care 282 mg/dl (65-105)
[2021-09-09] MEDS: MELATONIN 5 MG TABLET PO (22:20)
[2021-09-10] VITALS (17 sets, daily range): BP systolic 103–127; BP diastolic 53–68; PULSE 62–96; RESP 16–22; TEMP 35.9–36.4; O2SAT 93–100
--- NOTE | 2021-09-10 00:41 | PC.NURSE ---
09/10/21 0040 pt refused new iv access.
[2021-09-10] MEDS: OLANZapine 10 MG INJ VIAL 5 MG IM (01:14)
[2021-09-10] MEDS: WATER, STERILE FOR INJECTION 10 ML VIAL XX (01:15)
[2021-09-10] MEDS: ALBUTEROL SULFATE NEB 2.5 MG/0.5 ML INH INHALATION ×4 (01:50→20:48)
[2021-09-10] MEDS: IPRATROPIUM BR 0.02% INH SOLN 0.5 MG/2.5 ML VIAL INHALATION ×4 (01:50→20:48)
[2021-09-10 08:12] LABS: Glucose Point of Care 296 mg/dl (65-105)
[2021-09-10 08:24] LABS: Hematocrit 30.4 % (37.0-47.0); Hemoglobin 9.7 g/dL (12.0-15.0); Mean Corpuscular HGB Conc 31.9 g/dl (32-36); Mean Corpuscular Hemoglobin 27.6 pg (26-34); Mean Corpuscular Volume 86.6 fl (80-100); Platelet Count Result 414 k/mm3 (150-375); Red Blood Count 3.51 M/mm3 (4.2-5.4); Red Cell Distribution Width 15.6 % (11.5-14.5); White Blood Count 13.1 K/mm3 (4.5-10.0)
[2021-09-10 08:36] LABS: Alanine Aminotransferase 17 U/L (6-35); Albumin Level 2.9 g/dL (3.5-5.1); Alkaline Phosphatase 96 U/L (38-126); Amylase 42 U/L (30-110); Anion Gap 3 mmol/L (8-16); Aspartate Amino Transferase 18 U/L (14-36); Bilirubin,Total 0.5 mg/dL (0.2-1.3); Blood Urea Nitrogen 18 mg/dL (7-17); Calcium 8.8 mg/dL (8.4-10.2); Carbon Dioxide 37 mmol/L (22-30); Chloride 89 mmol/L (98-107); Cholesterol 90 mg/dL (0-200); Estimated Glomerular Filt Rate > 60; Glucose 294 mg/dL (65-110); Glucose 298 mg/dL (65-110); Lactate Dehydrogenase 249 U/L (313-618); Magnesium 1.4 mg/dL (1.6-2.3); Potassium 3.9 mmol/L (3.4-5.0); Sodium 129 mmol/L (137-145); Triglycerides 123 mg/dL (<150)
[2021-09-10 08:46] LABS: INR 1.9; Prothrombin Time 21.4 Seconds (11.1-14.7)
[2021-09-10] MEDS: INSULIN ASPART (*BKC) 100 UNITS/ML SUB-Q ×3 (08:53→17:19)
[2021-09-10] MEDS: cycloSPORINE 0.4 ML OPHTH SOLUTION 2 DROP EACH EYE ×2 (08:54→17:16)
[2021-09-10] MEDS: DOCUSATE SODIUM LIQ 100 MG/10 ML UDC PO ×2 (08:54→20:12)
[2021-09-10] MEDS: FUROSEMIDE 40 MG TABLET BY MOUTH (08:54)
[2021-09-10] MEDS: DIVALPROEX SODIUM SPRINKLE 125 MG CAP.DR 250 MG PO ×2 (08:54→20:12)
[2021-09-10] MEDS: DONEPEZIL HCL 10 MG TABLET BY MOUTH (08:54)
[2021-09-10] MEDS: AMOXICILLIN/CLAVULANATE K 875-125 MG TAB 1 TABLET PO ×2 (08:55→20:13)
[2021-09-10] MEDS: AMIODARONE HCL 200 MG TABLET BY MOUTH ×2 (08:55→17:18)
[2021-09-10] MEDS: GABAPENTIN 100 MG CAPSULE PO ×3 (08:55→17:17)
[2021-09-10] MEDS: PANTOPRAZOLE 40 MG TABLET PO ×2 (08:55→17:17)
[2021-09-10] MEDS: MAGNESIUM OXIDE 400 MG TABLET PO (08:55)
[2021-09-10] MEDS: DOXYCYCLINE HYCLATE 100 MG TABLET PO ×2 (08:56→20:13)
[2021-09-10] MEDS: FLUTICASONE/SALMETEROL 115-21 MCG INHALER 1 PUFF 2 PUFF INHALATION ×2 (09:47→20:50)
--- NOTE | 2021-09-10 10:27 | PM.IMPN ---
Progress Note: A&P Assessment and Plan (1) Pleural effusion: Code(s): J90 - Pleural effusion, not elsewhere classified Status: Acute Assessment and Plan: Large left-sided pleural effusion 09/07 S/P Successful ultrasound-guided thoracentesis yielding 950 mL of slightly green-tinged yellowish fluid. -thoracentesis delayed as patient was on anticoagulation -continue supplemental oxygen -continue antibiotics for possible pneumonia as seen on chest x-ray. Was switched to p.o. today -some fluid studies are pending. G stain was negative. Cultures pending -patient still has residual pleural effusion. Since patient is at baseline oxygen need. Will resume anticoagulation and not pursue further thoracentesis -continue diuretics 09/08/2021 interval history: patient is 70-year-old female presented emergency department with complaint of shortness of breath was found to have pleural effusion status post ultrasound-guided thoracentesis on 09/06 yielding 950 mL of slightly green-tinged yellowish fluid, g stain was negative and cultures are pending, patient seen by pulmonology recommended to continue antibiotics for pneumonia, there was a concerned for pericardial effusion, patient was seen by sales property manager and no cardiac issues, patient was transferred out of ICU now on medical floor, patient is a very hard of hearing and difficult to communicate however states feeling much better not as short of breath is when she arrived patient is chronically 3 L of oxygen and remained on 3 L of oxygen while in the hospital, will continue to monitor with follow-up on culture from pleural fluid patient seen by pulmonology and further recommendation to follow. 09/09/2021 interval history: patient is 70-year-old female presented emergency department with complaint of shortness of breath was found to have pleural effusion status post ultrasound-guided thoracentesis on 09/06 yielding 950 mL of slightly green-tinged yellowish fluid, g stain was negative and cultures are pending, patient seen by pulmonology recommended to continue antibiotics for pneumonia, d/w allied health professional concerned for empyma in pleural effusion, will thoracentesis on 09/11 And further recommendation to follow, there was a concerned for pericardial effusion, patient was seen by sales property manager and no cardiac issues, patient was transferred out of ICU now on medical floor, patient is a very hard of hearing and difficult to communicate however today patient is slightly agitated will give the patient zyprexa 5mg IM x1. patient is chronically 3 L of oxygen and remained on 3 L of oxygen while in the hospital, will continue to monitor with follow-up on culture from pleural fluid patient seen by pulmonology and further recommendation to follow. 09/10/2021 interval history: patient is 70-year-old female presented emergency department with complaint of shortness of breath was found to have pleural effusion status post ultrasound-guided thoracentesis on 09/06 yielding 950 mL of slightly green-tinged yellowish fluid, g stain was negative and cultures are pending, patient seen by pulmonology recommended to continue antibiotics for pneumonia, d/w allied health professional concerned for empyma in pleural effusion, will repeat thoracentesis on 09/11 And further recommendation to follow, there was a concerned for pericardial effusion, patient was seen by sales property manager and no cardiac issues, patient was transferred out of ICU now on medical floor, patient is a very hard of hearing and difficult to communicate however on 09/09 patient was slightly agitated gave the patient zyprexa 5mg IM x1. This morning patient is much calmer, patient is scheduled for thoracentesis for tomorrow will keep her NPO after midnight, and holding Eliquis, patient is chronically 3 L of oxygen and remained on 3 L of oxygen while in the hospital, will continue to monitor with follow-up on culture from pleural fluid patient seen by pulmonology and further recommen
[2021-09-10 11:53] LABS: Glucose Point of Care 395 mg/dl (65-105)
[2021-09-10] MEDS: INSULIN GLARGINE (*BKC) 100 UNITS/ML 25 UNITS SUB-Q ×2 (12:22→17:18)
[2021-09-10 16:44] LABS: Glucose Point of Care 404 mg/dl (65-105)
[2021-09-10 18:43] LABS: Amylase, Pleural Fluid 26 U/L
[2021-09-10] MEDS: SERTRALINE HCL 50 MG TABLET 100 MG PO (20:12)
[2021-09-10] MEDS: OLANZapine 2.5 MG TABLET PO (20:13)
[2021-09-10] MEDS: AMITRIPTYLINE HCL 10 MG TABLET PO (20:13)
[2021-09-10] MEDS: ATORVASTATIN 20 MG TABLET BY MOUTH (20:13)
[2021-09-10 20:26] LABS: Glucose Point of Care 320 mg/dl (65-105)
[2021-09-11] VITALS (15 sets, daily range): BP systolic 91–140; BP diastolic 52–84; PULSE 72–90; RESP 14–20; TEMP 36.7–37.9; O2SAT 95–99
--- NOTE | 2021-09-11 02:17 | PC.NURSE ---
09/11/21 0217 housekeeping cleaner samy unsuccessful in placing new iv access.
[2021-09-11] MEDS: IPRATROPIUM BR 0.02% INH SOLN 0.5 MG/2.5 ML VIAL INHALATION ×4 (02:25→20:16)
[2021-09-11] MEDS: ALBUTEROL SULFATE NEB 2.5 MG/0.5 ML INH INHALATION ×4 (02:26→20:16)
[2021-09-11 06:42] LABS: Mean Corpuscular Hemoglobin 27.3 pg (26-34); Mean Corpuscular Volume 87.9 fl (80-100); Platelet Count Result 413 k/mm3 (150-375); Red Cell Distribution Width 15.6 % (11.5-14.5); White Blood Count 10.2 K/mm3 (4.5-10.0)
[2021-09-11 07:00] LABS: Alanine Aminotransferase 15 U/L (6-35); Albumin Level 2.9 g/dL (3.5-5.1); Alkaline Phosphatase 92 U/L (38-126); Aspartate Amino Transferase 20 U/L (14-36); Bilirubin,Total 0.4 mg/dL (0.2-1.3); Blood Urea Nitrogen 16 mg/dL (7-17); Calcium 8.8 mg/dL (8.4-10.2); Carbon Dioxide > 40 mmol/L (22-30); Chloride 85 mmol/L (98-107); Estimated Glomerular Filt Rate > 60; Glucose 236 mg/dL (65-110); Magnesium 1.4 mg/dL (1.6-2.3); Phosphorus 3.8 mg/dL (2.5-4.5); Potassium 3.2 mmol/L (3.4-5.0); Sodium 131 mmol/L (137-145)
[2021-09-11 07:44] LABS: INR 1.7; Prothrombin Time 19.2 Seconds (11.1-14.7)
[2021-09-11 07:45] LABS: Partial Thromboplastin Time 38.9 SECONDS (22.3-36.8)
[2021-09-11 08:02] LABS: Glucose Point of Care 220 mg/dl (65-105)
[2021-09-11] MEDS: FLUTICASONE/SALMETEROL 115-21 MCG INHALER 1 PUFF 2 PUFF INHALATION ×2 (09:02→22:15)
[2021-09-11] MEDS: MAGNESIUM SULF 2 GM/WATER 50ML 2 GM/50 ML BAG IVPB (09:13)
--- NOTE | 2021-09-11 10:56 | PCNSR ---
On 09/11/21, the student, Edwige Costa, provided care and completed [facility] documentation on this patient. I have reviewed the student's documentation and agree with the findings.
[2021-09-11 11:43] LABS: Glucose Point of Care 240 mg/dl (65-105)
[2021-09-11 13:04] LABS: pH Pleural Fluid 7.487 (7.210-7.500)
[2021-09-11 14:25] LABS: Pleural fluid source Pleural fluid
[2021-09-11 14:26] LABS: Lymphocytes Pleural Fluid 4 %; Macrophages Pleural Fluid 9 %; Mesothelial Cells Pleural Flui 3 %; Monocytes Pleural Fluid 28 %; Neutrophils Pleural Fluid 56 % (0-25)
[2021-09-11 14:27] LABS: Appearance Pleural Fluid Clear (Clear); Color Pleural Fluid Yellow (Colorless)
--- NOTE | 2021-09-11 14:41 | PM.PNPUL ---
Progress Note: A&P Assessment and Plan (1) Pleural effusion: Code(s): J90 - Pleural effusion, not elsewhere classified Status: Acute Assessment and Plan: Large left-sided parapneumonic effusion, improved pH. The effusion is still large. She had a thoracentesis September 07, with 950 ml green tinged fluid, pH low, 7.289; no WBC in the Gram stain. Today September 11, repeat thoracentesis shows pH is 7.487, normal. She has a parapneumonia effusion, improved with antibiotics. Differential is acceptable, 54% neutrophils, 28% monocytes, 9 macrophages, 3 mesothelial cells, 4% Lymphs. The chemistries are not back for today's tap. The fluid was clear this time, not cloudy or green. She remains on 3 L/min, could be weaned as her saturation is 98%. Overall looks better. She continues with diuresis Lasix 40 mg a day. Her WBC is 10.2, trending down. She is not having fevers. She has other issues including pericardial effusion, hyponatremia on Lasix 40 mg a day and sertraline, diastolic dysfunction; HTN; she had breast cancer in the past. Initial wt 84.9 kg, now 82.9m, seems to be a steady trend downward. It is not clear what the best path forward is to decrease the size of this persistently large effusion. She has been treated with antibiotics; she is on Doxycycline since September 08. Overall, her prognosis is guarded, however she is improving. Will continue to follow with you. Her MELISSA cascade was sent September 06, no results in system yet; it was sent because she had both pleural and pericardial effusions, can be seen in SLE. Subjective Date/time seen: 09/11/21 14:41 Interval history: Room 301 hospital follow up : Montse Zarate is a 70 year old woman who was admitted with a pericardial and pleural effusion. She has a large left pleural effusion that was re-tapped today, pH 7.487 much better. differential = 54% neutrophils, 4% Lymphs, 28% monocytes, 3 mesothelial cells and 9% macrophages. The fluid has a normal pH. She does not have an empyema, and oral antibiotics will be sufficient to treat this effusion. On the initial thoracentesis, the pH was below normal 7.289 on September 06. She improved with treatment with antibiotics.. ? She is sitting up in bed, wants something for her hemorrhoids and wants her socks off. Not in distress, 3 L/min saturation 98%, can wean this, goal is saturation 90-94%. She is very hard of hearing and maybe demented. PMH: atrial fibrillation on Eliquis, HTN, asthma/COPD on O2 3 L/min, DM type 2. ? Review of Systems Review of Systems: All systems reviewed & are unremarkable except as noted in HPI and below Exam Narrative: GEN: Alert, oriented, no distress and no accessory muscle use. HEENT: pupils are equal, EOMI, symmetrical face; oral membranes moist, Mallampati II airway NECK: Trachea is midline CHEST: Equal air entry, symmetric excursion, clearer in bases. Left is still decreased compared to the right posteriorly. CV: Regular S1S2 no m/g/r ABD : (+) bowel sounds Extremities : no clubbing or cyanosis; she has 1+ diffuse edema. PSYCH: Pleasant, alert, very hard of hearing. Says she feels ok and denies being short of breath. Objective Data Vital Signs Vital Signs: Vital Signs - 24 hr 09/10/21 17:18 09/10/21 19:25 09/10/21 20:50 Temperature Pulse Rate 88 Respiratory Rate Blood Pressure Pulse Oximetry 100 98 Oxygen Delivery Nasal Cannula Nasal Cannula Oxygen Flow Rate 3 3 09/10/21 20:48 09/10/21 22:13 09/11/21 02:26 Temperature 35.9 C L Pulse Rate 90 82 85 Respiratory Rate 16 16 16 Blood Pressure 110/68 Pulse Oximetry 98 Oxygen Delivery Oxygen Flow Rate 09/10/21 20:58 09/11/21 02:36 09/11/21 06:04 Temperature 36.7 C Pulse Rate 89 83 72 Respiratory Rate 16 16 18 Blood Pressure 93/52 L Pulse Oximetry 99 Oxygen Delivery Oxygen Flow Rate 09/11/21 09:02 09/11/21 09:05 09/11/21
--- NOTE | 2021-09-11 15:25 | PM.IMPN ---
Progress Note: A&P Assessment and Plan (1) Pleural effusion: Code(s): J90 - Pleural effusion, not elsewhere classified Status: Acute Assessment and Plan: Large left-sided pleural effusion 09/07 S/P??Successful ultrasound-guided thoracentesis yielding 950 mL of slightly green-tinged yellowish fluid. -thoracentesis delayed as patient was on anticoagulation -continue supplemental oxygen -continue antibiotics for possible pneumonia as seen on chest x-ray.? Was switched to p.o. today -some fluid studies are pending.? G stain was negative.? Cultures pending -patient still has residual pleural effusion.? Since patient is at baseline oxygen need.? Will resume anticoagulation and not pursue further thoracentesis -continue diuretics 09/08/2021 interval history:?patient is 70-year-old female presented emergency department with complaint of shortness of? breath was? found to have pleural effusion status post ultrasound-guided thoracentesis on 09/06 yielding??950 mL of slightly green-tinged yellowish fluid, g stain was negative and cultures are pending, patient seen by pulmonology recommended to continue antibiotics for pneumonia, there was a concerned for pericardial effusion, patient was seen by bag bailer and no cardiac issues, patient was? transferred out of ICU now on medical floor,? patient is a very hard of hearing and difficult to communicate however states feeling much better not as short of breath is when she arrived patient is chronically 3 L of oxygen and remained on 3 L of oxygen while in the hospital, will continue to monitor with follow-up on culture from pleural fluid patient seen by pulmonology and further recommendation to follow. 09/09/2021 interval history:?patient is 70-year-old female presented emergency department with complaint of shortness of? breath was? found to have pleural effusion status post ultrasound-guided thoracentesis on 09/06 yielding??950 mL of slightly green-tinged yellowish fluid, g stain was negative and cultures are pending, patient seen by pulmonology recommended to continue antibiotics for pneumonia, d/w senior operations manager concerned for empyma in pleural effusion, will thoracentesis on 09/11 And further recommendation to follow, ? there was a concerned for pericardial effusion, patient was seen by bag bailer and no cardiac issues, patient was? transferred out of ICU now on medical floor,? patient is a very hard of hearing and difficult to communicate however today patient is slightly agitated will give the patient zyprexa 5mg IM x1. patient is chronically 3 L of oxygen and remained on 3 L of oxygen while in the hospital, will continue to monitor with follow-up on culture from pleural fluid patient seen by pulmonology and further recommendation to follow. 09/10/2021 interval history:?patient is 70-year-old female presented emergency department with complaint of shortness of? breath was? found to have pleural effusion status post ultrasound-guided thoracentesis on 09/06 yielding??950 mL of slightly green-tinged yellowish fluid, g stain was negative and cultures are pending, patient seen by pulmonology recommended to continue antibiotics for pneumonia, d/w senior operations manager concerned for empyma in pleural effusion, will repeat thoracentesis on 09/11 And further recommendation to follow, ? there was a concerned for pericardial effusion, patient was seen by bag bailer and no cardiac issues, patient was? transferred out of ICU now on medical floor,? patient is a very hard of hearing and difficult to communicate however on 09/09? patient was slightly agitated gave the patient zyprexa 5mg IM x1. This morning patient is much calmer,? patient is scheduled for thoracentesis for tomorrow will keep her NPO after midnight,? and holding Eliquis,? patient is chronically 3 L of oxygen and remained on 3 L of oxygen while in the hospital, will continue to monitor with follow-up on culture from pleural fluid patient seen by pulmonology and further recommenda
[2021-09-11 16:33] LABS: Glucose Point of Care 243 mg/dl (65-105)
[2021-09-11] MEDS: INSULIN ASPART (*BKC) 100 UNITS/ML SUB-Q (16:44)
[2021-09-11] MEDS: POTASSIUM CHLORIDE 20 MEQ PACKET (FOR LIQUID) 40 MEQ PO (16:48)
[2021-09-11] MEDS: GABAPENTIN 100 MG CAPSULE PO ×2 (16:49)
[2021-09-11] MEDS: cycloSPORINE 0.4 ML OPHTH SOLUTION 2 DROP EACH EYE (16:49)
[2021-09-11] MEDS: AMIODARONE HCL 200 MG TABLET BY MOUTH (16:49)
[2021-09-11] MEDS: PANTOPRAZOLE 40 MG TABLET PO (16:49)
[2021-09-11] MEDS: DOCUSATE SODIUM LIQ 100 MG/10 ML UDC PO (21:50)
[2021-09-11] MEDS: OLANZapine 2.5 MG TABLET PO (21:50)
[2021-09-11] MEDS: DOXYCYCLINE HYCLATE 100 MG TABLET PO (21:50)
[2021-09-11] MEDS: APIXABAN 5 MG TABLET PO (21:50)
[2021-09-11] MEDS: AMOXICILLIN/CLAVULANATE K 875-125 MG TAB 1 TABLET PO (21:50)
[2021-09-11] MEDS: SERTRALINE HCL 50 MG TABLET 100 MG PO (21:50)
[2021-09-11] MEDS: AMITRIPTYLINE HCL 10 MG TABLET PO (21:50)
[2021-09-11] MEDS: ATORVASTATIN 20 MG TABLET BY MOUTH (21:50)
[2021-09-11] MEDS: DIVALPROEX SODIUM SPRINKLE 125 MG CAP.DR 250 MG PO (21:50)
[2021-09-12] VITALS (15 sets, daily range): BP systolic 112–116; BP diastolic 76–82; PULSE 77–86; RESP 14–20; TEMP 35.6–36.2; O2SAT 96–100
[2021-09-12] MEDS: IPRATROPIUM BR 0.02% INH SOLN 0.5 MG/2.5 ML VIAL INHALATION ×4 (01:15→20:55)
[2021-09-12] MEDS: ALBUTEROL SULFATE NEB 2.5 MG/0.5 ML INH INHALATION ×4 (01:15→20:55)
[2021-09-12 07:30] LABS: Glucose Point of Care 261 mg/dl (65-105)
[2021-09-12] MEDS: MAGNESIUM OXIDE 400 MG TABLET PO (08:43)
[2021-09-12] MEDS: AMIODARONE HCL 200 MG TABLET BY MOUTH ×2 (08:44→17:49)
[2021-09-12] MEDS: APIXABAN 5 MG TABLET PO ×2 (08:44→21:59)
[2021-09-12] MEDS: DONEPEZIL HCL 10 MG TABLET BY MOUTH (08:44)
[2021-09-12] MEDS: AMOXICILLIN/CLAVULANATE K 875-125 MG TAB 1 TABLET PO ×2 (08:44→21:59)
[2021-09-12] MEDS: GABAPENTIN 100 MG CAPSULE PO ×3 (08:44→17:48)
[2021-09-12] MEDS: PANTOPRAZOLE 40 MG TABLET PO ×2 (08:44→17:50)
[2021-09-12] MEDS: FUROSEMIDE 40 MG TABLET BY MOUTH (08:44)
[2021-09-12] MEDS: cycloSPORINE 0.4 ML OPHTH SOLUTION 2 DROP EACH EYE ×2 (08:45→17:48)
[2021-09-12] MEDS: DOCUSATE SODIUM LIQ 100 MG/10 ML UDC PO ×2 (08:45→21:59)
[2021-09-12] MEDS: DOXYCYCLINE HYCLATE 100 MG TABLET PO ×2 (08:45→21:59)
[2021-09-12] MEDS: DIVALPROEX SODIUM SPRINKLE 125 MG CAP.DR 250 MG PO ×2 (08:45→21:59)
[2021-09-12 08:49] LABS: Hematocrit 29.9 % (37.0-47.0); Hemoglobin 9.5 g/dL (12.0-15.0); Mean Corpuscular HGB Conc 31.8 g/dl (32-36); Mean Corpuscular Hemoglobin 27.1 pg (26-34); Mean Corpuscular Volume 85.4 fl (80-100); Mean Platelet Volume 9.1 fl (7.4-10.4); Platelet Count Result 471 k/mm3 (150-375); Red Cell Distribution Width 15.8 % (11.5-14.5); White Blood Count 10.6 K/mm3 (4.5-10.0)
[2021-09-12 08:50] LABS: ANA Cascade Screen Negative (Negative)
[2021-09-12] MEDS: FLUTICASONE/SALMETEROL 115-21 MCG INHALER 1 PUFF 2 PUFF INHALATION ×2 (08:58→21:12)
[2021-09-12 08:59] LABS: Anion Gap 6 mmol/L (8-16); Blood Urea Nitrogen 17 mg/dL (7-17); Calcium 8.8 mg/dL (8.4-10.2); Carbon Dioxide 36 mmol/L (22-30); Chloride 86 mmol/L (98-107); Estimated Glomerular Filt Rate > 60; Glucose 249 mg/dL (65-110); Magnesium 1.7 mg/dL (1.6-2.3); Sodium 128 mmol/L (137-145)
[2021-09-12 11:28] LABS: Glucose Point of Care 295 mg/dl (65-105)
[2021-09-12] MEDS: FUROSEMIDE INJ 40 MG/4 ML VIAL IV PUSH (12:23)
[2021-09-12] MEDS: INSULIN ASPART (*BKC) 100 UNITS/ML SUB-Q ×2 (12:23→17:48)
--- NOTE | 2021-09-12 14:49 | PM.IMPN ---
Progress Note: A&P Assessment and Plan (1) Pleural effusion: Code(s): J90 - Pleural effusion, not elsewhere classified Status: Acute Assessment and Plan: Large left-sided pleural effusion 09/07 S/P??Successful ultrasound-guided thoracentesis yielding 950 mL of slightly green-tinged yellowish fluid. -thoracentesis delayed as patient was on anticoagulation -continue supplemental oxygen -continue antibiotics for possible pneumonia as seen on chest x-ray.? Was switched to p.o. today -some fluid studies are pending.? G stain was negative.? Cultures pending -patient still has residual pleural effusion.? Since patient is at baseline oxygen need.? Will resume anticoagulation and not pursue further thoracentesis -continue diuretics 09/08/2021 interval history:?patient is 70-year-old female presented emergency department with complaint of shortness of? breath was? found to have pleural effusion status post ultrasound-guided thoracentesis on 09/06 yielding??950 mL of slightly green-tinged yellowish fluid, g stain was negative and cultures are pending, patient seen by pulmonology recommended to continue antibiotics for pneumonia, there was a concerned for pericardial effusion, patient was seen by redrawer and no cardiac issues, patient was? transferred out of ICU now on medical floor,? patient is a very hard of hearing and difficult to communicate however states feeling much better not as short of breath is when she arrived patient is chronically 3 L of oxygen and remained on 3 L of oxygen while in the hospital, will continue to monitor with follow-up on culture from pleural fluid patient seen by pulmonology and further recommendation to follow. 09/09/2021 interval history:?patient is 70-year-old female presented emergency department with complaint of shortness of? breath was? found to have pleural effusion status post ultrasound-guided thoracentesis on 09/06 yielding??950 mL of slightly green-tinged yellowish fluid, g stain was negative and cultures are pending, patient seen by pulmonology recommended to continue antibiotics for pneumonia, d/w telecom coordinator concerned for empyma in pleural effusion, will thoracentesis on 09/11 And further recommendation to follow, ? there was a concerned for pericardial effusion, patient was seen by redrawer and no cardiac issues, patient was? transferred out of ICU now on medical floor,? patient is a very hard of hearing and difficult to communicate however today patient is slightly agitated will give the patient zyprexa 5mg IM x1. patient is chronically 3 L of oxygen and remained on 3 L of oxygen while in the hospital, will continue to monitor with follow-up on culture from pleural fluid patient seen by pulmonology and further recommendation to follow. 09/10/2021 interval history:?patient is 70-year-old female presented emergency department with complaint of shortness of? breath was? found to have pleural effusion status post ultrasound-guided thoracentesis on 09/06 yielding??950 mL of slightly green-tinged yellowish fluid, g stain was negative and cultures are pending, patient seen by pulmonology recommended to continue antibiotics for pneumonia, d/w telecom coordinator concerned for empyma in pleural effusion, will repeat thoracentesis on 09/11 And further recommendation to follow, ? there was a concerned for pericardial effusion, patient was seen by redrawer and no cardiac issues, patient was? transferred out of ICU now on medical floor,? patient is a very hard of hearing and difficult to communicate however on 09/09? patient was slightly agitated gave the patient zyprexa 5mg IM x1. This morning patient is much calmer,? patient is scheduled for thoracentesis for tomorrow will keep her NPO after midnight,? and holding Eliquis,? patient is chronically 3 L of oxygen and remained on 3 L of oxygen while in the hospital, will continue to monitor with follow-up on culture from pleural fluid patient seen by pulmonology and further recommenda
[2021-09-12] MEDS: ACETAMINOPHEN 325 MG TABLET 650 MG PO (15:57)
[2021-09-12 16:23] LABS: Glucose Point of Care 285 mg/dl (65-105)
[2021-09-12] MEDS: AMITRIPTYLINE HCL 10 MG TABLET PO (21:59)
[2021-09-12] MEDS: ATORVASTATIN 20 MG TABLET BY MOUTH (21:59)
[2021-09-12] MEDS: SERTRALINE HCL 50 MG TABLET 100 MG PO (22:00)
[2021-09-12] MEDS: OLANZapine 2.5 MG TABLET PO (22:00)
[2021-09-12 22:13] LABS: Glucose Point of Care 335 mg/dl (65-105)
[2021-09-13] VITALS (16 sets, daily range): BP systolic 105–110; BP diastolic 63–71; PULSE 74–81; RESP 16–22; TEMP 35.8–36.7; O2SAT 95–100
[2021-09-13] MEDS: ALBUTEROL SULFATE NEB 2.5 MG/0.5 ML INH INHALATION ×4 (03:07→19:58)
[2021-09-13] MEDS: IPRATROPIUM BR 0.02% INH SOLN 0.5 MG/2.5 ML VIAL INHALATION ×4 (03:07→19:59)
[2021-09-13 06:03] LABS: Glucose Pleural Fluid 244 mg/dL; LDH Pleural Fluid 117 U/L; Total Protein Pleural Fluid 3.9 g/dL
[2021-09-13 06:15] LABS: Hematocrit 28.2 % (37.0-47.0); Hemoglobin 8.9 g/dL (12.0-15.0); Mean Corpuscular HGB Conc 31.6 g/dl (32-36); Mean Corpuscular Hemoglobin 27.2 pg (26-34); Mean Corpuscular Volume 86.2 fl (80-100); Mean Platelet Volume 9.2 fl (7.4-10.4); Platelet Count Result 377 k/mm3 (150-375); Red Blood Count 3.27 M/mm3 (4.2-5.4); Red Cell Distribution Width 15.7 % (11.5-14.5); White Blood Count 8.5 K/mm3 (4.5-10.0)
[2021-09-13 06:21] LABS: Blood Urea Nitrogen 17 mg/dL (7-17); Calcium 8.4 mg/dL (8.4-10.2); Carbon Dioxide > 40 mmol/L (22-30); Chloride 85 mmol/L (98-107); Estimated Glomerular Filt Rate > 60; Glucose 262 mg/dL (65-110); Potassium 3.6 mmol/L (3.4-5.0); Sodium 128 mmol/L (137-145)
[2021-09-13 07:34] LABS: Glucose Point of Care 266 mg/dl (65-105)
[2021-09-13] MEDS: FLUTICASONE/SALMETEROL 115-21 MCG INHALER 1 PUFF 2 PUFF INHALATION ×2 (07:55→19:58)
[2021-09-13] MEDS: INSULIN ASPART (*BKC) 100 UNITS/ML SUB-Q ×3 (08:31→16:34)
[2021-09-13] MEDS: DOCUSATE SODIUM LIQ 100 MG/10 ML UDC PO ×2 (08:35→20:12)
[2021-09-13] MEDS: FUROSEMIDE INJ 40 MG/4 ML VIAL IV PUSH (08:36)
[2021-09-13] MEDS: PANTOPRAZOLE 40 MG TABLET PO ×2 (08:37→16:38)
[2021-09-13] MEDS: DOXYCYCLINE HYCLATE 100 MG TABLET PO ×2 (08:37→20:11)
[2021-09-13] MEDS: MAGNESIUM OXIDE 400 MG TABLET PO (08:37)
[2021-09-13] MEDS: GABAPENTIN 100 MG CAPSULE PO ×3 (08:37→16:38)
[2021-09-13] MEDS: AMIODARONE HCL 200 MG TABLET BY MOUTH ×2 (08:37→16:38)
[2021-09-13] MEDS: DIVALPROEX SODIUM SPRINKLE 125 MG CAP.DR 250 MG PO ×2 (08:37→20:11)
[2021-09-13] MEDS: APIXABAN 5 MG TABLET PO ×2 (08:38→20:11)
[2021-09-13] MEDS: cycloSPORINE 0.4 ML OPHTH SOLUTION 2 DROP EACH EYE ×2 (08:38→16:38)
[2021-09-13] MEDS: DONEPEZIL HCL 10 MG TABLET BY MOUTH (08:38)
[2021-09-13 11:11] LABS: Glucose Point of Care 300 mg/dl (65-105)
[2021-09-13 11:58] LABS: Albumin Pleural Fluid 1.7 g/dL
[2021-09-13 16:23] LABS: Glucose Point of Care 313 mg/dl (65-105)
--- NOTE | 2021-09-13 16:40 | PM.IMPN ---
Progress Note: A&P Assessment and Plan (1) Pleural effusion: Code(s): J90 - Pleural effusion, not elsewhere classified Status: Acute Assessment and Plan: Large left-sided pleural effusion: Exudative pleural effusion 09/07 S/P??Successful ultrasound-guided thoracentesis yielding 950 mL of slightly green-tinged yellowish fluid. -thoracentesis delayed as patient was on anticoagulation -continue supplemental oxygen -continue antibiotics for possible pneumonia as seen on chest x-ray. Pleural fluid analysis with neutrophilia noted along with elevated LDH total protein and cholesterol suggestive of exudative effusion. Cultures been negative Pleural fluid cytology 09/06/2021 with many neutrophils and reactive mesothelial cells suggesting acute inflammation. Repeat thoracentesis reveals similar findings on 09/11/2021 MELISSA is negative, COVID is negative -patient still has residual pleural effusion.? Since patient is at baseline oxygen need.? Will resume anticoagulation and not pursue further thoracentesis -continue diuretics with Lasix 40 mg daily Currently on doxycycline. Will repeat chest x-ray in the morning and also check procalcitonin Pericardial effusion as revealed in CT chest large volume pericardial effusion. Echocardiogram 09/04/2021 with ejection fraction 50-55% small to moderate-sized pericardial effusion present. 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 (2) Acute pericardial effusion: Code(s): I30.9 - Acute pericarditis, unspecified Status: Acute Assessment and Plan: patient was seen by Cardiology and patient does not need further workup (3) Elevated brain natriuretic peptide (BNP) level: Code(s): R79.89 - Other specified abnormal findings of blood chemistry Status: Acute Assessment and Plan: Echo suggests diastolic dysfunction Continue low-dose of diuretic Cardiology following (4) Abnormal finding on urinalysis: Code(s): R82.90 - Unspecified abnormal findings in urine Status: Acute Assessment and Plan: no bacterial growth, (5) Acute hypokalemia: Code(s): E87.6 - Hypokalemia Status: Acute Assessment and Plan: will monitor and supplement (6) Leukocytosis: Code(s): D72.829 - Elevated white blood cell count, unspecified Status: Acute Assessment and Plan: most likely secondary to pneumonia (7) Electrolyte abnormality: Code(s): E87.8 - Other disorders of electrolyte and fluid balance, not elsewhere classified Status: Acute (8) Constipation: Code(s): K59.00 - Constipation, unspecified Status: Acute Subjective Date/time seen: 09/13/21 16:40 Interval history: 09/11/2021 interval history:?patient is 70-year-old female presented emergency department with complaint of shortness of? breath was? found to have pleural effusion status post ultrasound-guided thoracentesis on 09/06 yielding??950 mL of slightly green-tinged yellowish fluid, g stain was negative and cultures are pending, patient seen by pulmonology recommended to continue antibiotics for pneumonia, d/w mill work concerned for empyma in pleural effusion, will repeat thoracentesis on 09/11 And further recommendation to follow, ? there was a concerned for pericardial effusion, patient was seen by rewrite editor and no cardiac issues, patient was? transferred out of ICU now on medical floor,? patient is a very hard of hearing and difficult to communicate however on 09/09? patient was slightly agitated gave the patient zyprexa 5mg IM x1. sine then? patient is much calmer,? patient had repeat thoracentes
[2021-09-13] MEDS: OLANZapine 2.5 MG TABLET PO (20:11)
[2021-09-13] MEDS: AMITRIPTYLINE HCL 10 MG TABLET PO (20:11)
[2021-09-13] MEDS: ATORVASTATIN 20 MG TABLET BY MOUTH (20:11)
[2021-09-13] MEDS: SERTRALINE HCL 50 MG TABLET 100 MG PO (20:13)
[2021-09-13 21:57] LABS: Glucose Point of Care 351 mg/dl (65-105)
[2021-09-14] VITALS (16 sets, daily range): BP systolic 133–140; BP diastolic 50–75; PULSE 67–82; RESP 16–20; TEMP 36.1–36.6; O2SAT 92–100
[2021-09-14] MEDS: ALBUTEROL SULFATE NEB 2.5 MG/0.5 ML INH INHALATION ×4 (02:12→19:08)
[2021-09-14] MEDS: IPRATROPIUM BR 0.02% INH SOLN 0.5 MG/2.5 ML VIAL INHALATION ×4 (02:12→19:08)
[2021-09-14 06:49] LABS: Hematocrit 29.2 % (37.0-47.0); Hemoglobin 9.1 g/dL (12.0-15.0); Mean Corpuscular HGB Conc 31.2 g/dl (32-36); Mean Corpuscular Hemoglobin 27.1 pg (26-34); Mean Corpuscular Volume 86.9 fl (80-100); Mean Platelet Volume 9.2 fl (7.4-10.4); Platelet Count Result 458 k/mm3 (150-375); Red Blood Count 3.36 M/mm3 (4.2-5.4); Red Cell Distribution Width 15.8 % (11.5-14.5); White Blood Count 7.5 K/mm3 (4.5-10.0)
[2021-09-14 07:28] LABS: Blood Urea Nitrogen 19 mg/dL (7-17); Calcium 8.3 mg/dL (8.4-10.2); Carbon Dioxide > 40 mmol/L (22-30); Chloride 83 mmol/L (98-107); Estimated Glomerular Filt Rate > 60; Glucose 269 mg/dL (65-110); Potassium 3.3 mmol/L (3.4-5.0); Sodium 128 mmol/L (137-145)
[2021-09-14 07:40] LABS: Magnesium 1.4 mg/dL (1.6-2.3)
[2021-09-14] MEDS: FLUTICASONE/SALMETEROL 115-21 MCG INHALER 1 PUFF 2 PUFF INHALATION ×2 (08:03→19:08)
[2021-09-14 08:18] LABS: Glucose Point of Care 269 mg/dl (65-105)
[2021-09-14] MEDS: INSULIN ASPART (*BKC) 100 UNITS/ML SUB-Q ×3 (08:20→17:17)
[2021-09-14] MEDS: MAGNESIUM OXIDE 400 MG TABLET PO (08:23)
[2021-09-14] MEDS: AMIODARONE HCL 200 MG TABLET BY MOUTH ×2 (08:23→17:20)
[2021-09-14] MEDS: PANTOPRAZOLE 40 MG TABLET PO ×2 (08:23→17:20)
[2021-09-14] MEDS: DIVALPROEX SODIUM SPRINKLE 125 MG CAP.DR 250 MG PO ×2 (08:23→21:49)
[2021-09-14] MEDS: APIXABAN 5 MG TABLET PO ×2 (08:23→21:49)
[2021-09-14] MEDS: GABAPENTIN 100 MG CAPSULE PO ×3 (08:24→17:19)
[2021-09-14] MEDS: DOXYCYCLINE HYCLATE 100 MG TABLET PO ×2 (08:25→21:49)
[2021-09-14] MEDS: cycloSPORINE 0.4 ML OPHTH SOLUTION 2 DROP EACH EYE ×2 (08:25→17:19)
[2021-09-14] MEDS: FUROSEMIDE INJ 40 MG/4 ML VIAL IV PUSH (08:25)
[2021-09-14] MEDS: DONEPEZIL HCL 10 MG TABLET BY MOUTH (08:25)
--- NOTE | 2021-09-14 11:22 | PCNFU ---
Nutrition Follow-Up Complete: Inadequate oral intake related to diet order as evidenced by NPO diet. Goal: Adequate intake of at least 75% of meals. - Pt is meeting goal, continue current goal. Pt current nutrition is Minced and moist level 5, DBCC, fluid restriction 1,600ml. Last recorded weight is 82.9 kg, no changes in weight. Bowel Motility: Last BM reported on 09/13. Labs Reviewed: Hgb 9.1, Hct 29.2, Na 128, K 3.3, BUN 19, Glu 269 Meds Noted: Miralax, Protonix, Zofran, Novolog Skin: WNL Additional Notes: Pt reports a good appetite and they liked the hospital foods. Pt is currently eating 80% of meals. Agree with diet order. Monitor labs, weight, and intake and follow up in 7 days.
--- NOTE | 2021-09-14 12:09 | PCNSR ---
On 09/14/21, the student, Roro Nunez, provided care and completed [facility] documentation on this patient. I have reviewed the student's documentation and agree with the findings.
[2021-09-14 12:36] LABS: Glucose Point of Care 314 mg/dl (65-105)
--- NOTE | 2021-09-14 14:43 | PM.IMPN ---
Progress Note: A&P Assessment and Plan (1) Pleural effusion: Code(s): J90 - Pleural effusion, not elsewhere classified Status: Acute Assessment and Plan: # Large left-sided pleural effusion: Exudative pleural effusion 09/07 S/P??Successful ultrasound-guided thoracentesis yielding 950 mL of slightly green-tinged yellowish fluid. -thoracentesis delayed as patient was on anticoagulation -continue supplemental oxygen -continue antibiotics for possible pneumonia as seen on chest x-ray. Pleural fluid analysis with neutrophilia noted along with elevated LDH total protein and cholesterol suggestive of exudative effusion. Cultures been negative Pleural fluid cytology 09/06/2021 with many neutrophils and reactive mesothelial cells suggesting acute inflammation. Repeat thoracentesis reveals similar findings on 09/11/2021 MELISSA is negative, COVID is negative -patient still has residual pleural effusion.? Since patient is at baseline oxygen need.? Will resume anticoagulation and not pursue further thoracentesis -continue diuretics with Lasix 40 mg daily Currently on doxycycline. Repeat chest x-ray with persistent pleural effusion Check procalcitonin Continue on doxycycline Discussed with [id number] regarding surgical intervention versus intermittent thoracentesis. She is open to both the option however she is also aware that we might need to transfer her to a higher facility for surgical intervention. Will touch base with storm sash maker # Pericardial effusion as revealed in CT chest large volume pericardial effusion. Echocardiogram 09/04/2021 with ejection fraction 50-55% small to moderate-sized pericardial effusion present. 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 (2) Acute pericardial effusion: Code(s): I30.9 - Acute pericarditis, unspecified Status: Acute Assessment and Plan: patient was seen by Cardiology and patient does not need further workup (3) Elevated brain natriuretic peptide (BNP) level: Code(s): R79.89 - Other specified abnormal findings of blood chemistry Status: Acute Assessment and Plan: Echo suggests diastolic dysfunction Continue low-dose of diuretic Cardiology following (4) Abnormal finding on urinalysis: Code(s): R82.90 - Unspecified abnormal findings in urine Status: Acute Assessment and Plan: no bacterial growth, (5) Acute hypokalemia: Code(s): E87.6 - Hypokalemia Status: Acute Assessment and Plan: will monitor and supplement (6) Leukocytosis: Code(s): D72.829 - Elevated white blood cell count, unspecified Status: Acute Assessment and Plan: most likely secondary to pneumonia (7) Electrolyte abnormality: Code(s): E87.8 - Other disorders of electrolyte and fluid balance, not elsewhere classified Status: Acute (8) Constipation: Code(s): K59.00 - Constipation, unspecified Status: Acute Subjective Date/time seen: 09/14/21 14:43 Interval history: 09/11/2021 interval history:?patient is 70-year-old female presented emergency department with complaint of shortness of? breath was? found to have pleural effusion status post ultrasound-guided thoracentesis on 09/06 yielding??950 mL of slightly green-tinged yellowish fluid, g stain was negative and cultures are pending, patient seen by pulmonology recommended to continue antibiotics for pneumonia, d/w storm sash maker concerned for empyma in pleural effusion, will repeat thoracentesis on 09/11 And further recommendation to follow, ? there was a concerned for pericardial effus
[2021-09-14 16:10] LABS: Procalcitonin 0.3 ng/mL
[2021-09-14 17:15] LABS: Glucose Point of Care 254 mg/dl (65-105)
[2021-09-14] MEDS: DOCUSATE SODIUM LIQ 100 MG/10 ML UDC PO (21:49)
[2021-09-14] MEDS: AMITRIPTYLINE HCL 10 MG TABLET PO (21:49)
[2021-09-14] MEDS: OLANZapine 2.5 MG TABLET PO (21:49)
[2021-09-14] MEDS: SERTRALINE HCL 50 MG TABLET 100 MG PO (21:49)
[2021-09-14] MEDS: ATORVASTATIN 20 MG TABLET BY MOUTH (21:49)
[2021-09-14 22:01] LABS: Glucose Point of Care 274 mg/dl (65-105)
[2021-09-15] VITALS (14 sets, daily range): BP systolic 111–134; BP diastolic 67–72; PULSE 69–83; RESP 16–20; TEMP 35.6–36.7; O2SAT 93–100
[2021-09-15] MEDS: IPRATROPIUM BR 0.02% INH SOLN 0.5 MG/2.5 ML VIAL INHALATION ×4 (01:15→19:42)
[2021-09-15] MEDS: ALBUTEROL SULFATE NEB 2.5 MG/0.5 ML INH INHALATION ×4 (01:15→19:42)
[2021-09-15 06:39] LABS: Hematocrit 31.7 % (37.0-47.0); Hemoglobin 9.5 g/dL (12.0-15.0); Mean Corpuscular Hemoglobin 26.5 pg (26-34); Mean Corpuscular Volume 88.5 fl (80-100); Mean Platelet Volume 9.2 fl (7.4-10.4); Platelet Count Result 451 k/mm3 (150-375); Red Blood Count 3.58 M/mm3 (4.2-5.4); Red Cell Distribution Width 15.9 % (11.5-14.5); White Blood Count 6.9 K/mm3 (4.5-10.0)
[2021-09-15 06:55] LABS: Blood Urea Nitrogen 17 mg/dL (7-17); Calcium 8.6 mg/dL (8.4-10.2); Carbon Dioxide > 40 mmol/L (22-30); Chloride 84 mmol/L (98-107); Estimated Glomerular Filt Rate > 60; Glucose 260 mg/dL (65-110); Potassium 3.3 mmol/L (3.4-5.0); Sodium 129 mmol/L (137-145)
[2021-09-15 08:10] LABS: Glucose Point of Care 286 mg/dl (65-105)
[2021-09-15] MEDS: DOCUSATE SODIUM LIQ 100 MG/10 ML UDC PO ×2 (08:47→20:37)
[2021-09-15] MEDS: cycloSPORINE 0.4 ML OPHTH SOLUTION 2 DROP EACH EYE ×2 (08:48→17:16)
[2021-09-15] MEDS: DIVALPROEX SODIUM SPRINKLE 125 MG CAP.DR 250 MG PO ×2 (08:48→20:37)
[2021-09-15] MEDS: POTASSIUM CHLORIDE 20 MEQ TABLET 40 MEQ PO (08:48)
[2021-09-15] MEDS: AMIODARONE HCL 200 MG TABLET BY MOUTH ×2 (08:49→17:15)
[2021-09-15] MEDS: MAGNESIUM OXIDE 400 MG TABLET PO (08:49)
[2021-09-15] MEDS: DONEPEZIL HCL 10 MG TABLET BY MOUTH (08:49)
[2021-09-15] MEDS: DOXYCYCLINE HYCLATE 100 MG TABLET PO ×2 (08:49→20:37)
[2021-09-15] MEDS: PANTOPRAZOLE 40 MG TABLET PO ×2 (08:49→17:15)
[2021-09-15] MEDS: GABAPENTIN 100 MG CAPSULE PO ×3 (08:49→17:15)
[2021-09-15] MEDS: APIXABAN 5 MG TABLET PO (08:49)
[2021-09-15] MEDS: FUROSEMIDE INJ 40 MG/4 ML VIAL IV PUSH (08:50)
[2021-09-15] MEDS: INSULIN ASPART (*BKC) 100 UNITS/ML SUB-Q ×3 (08:50→17:15)
[2021-09-15] MEDS: FLUTICASONE/SALMETEROL 115-21 MCG INHALER 1 PUFF 2 PUFF INHALATION ×2 (09:25→19:42)
[2021-09-15 11:56] LABS: Glucose Point of Care 252 mg/dl (65-105)
--- NOTE | 2021-09-15 13:23 | PM.IMPN ---
Progress Note: A&P Assessment and Plan (1) Pleural effusion: Code(s): J90 - Pleural effusion, not elsewhere classified Status: Acute Assessment and Plan: # Large left-sided pleural effusion: Exudative pleural effusion 09/07 S/P??Successful ultrasound-guided thoracentesis yielding 950 mL of slightly green-tinged yellowish fluid. -thoracentesis delayed as patient was on anticoagulation -continue supplemental oxygen -continue antibiotics for possible pneumonia as seen on chest x-ray. Pleural fluid analysis with neutrophilia noted along with elevated LDH total protein and cholesterol suggestive of exudative effusion. Cultures been negative Pleural fluid cytology 09/06/2021 with many neutrophils and reactive mesothelial cells suggesting acute inflammation. Repeat thoracentesis reveals similar findings on 09/11/2021 MELISSA is negative, COVID is negative -patient still has residual pleural effusion.? Since patient is at baseline oxygen need.? Will resume anticoagulation and not pursue further thoracentesis -continue diuretics with Lasix 40 mg daily Currently on doxycycline. Repeat chest x-ray with persistent pleural effusion Check procalcitonin Continue on doxycycline Discussed with [id number] regarding surgical intervention versus intermittent thoracentesis. She is open to both the option however she is also aware that we might need to transfer her to a higher facility for surgical intervention. Discussed pulmonary Will plan for repeat thoracentesis therapeutic drain is. Continue doxycycline Would like to defer surgical treatment as poor functional status Will to space with family/power personal injury attorney again. Discussed with her 09/14/2021 # Pericardial effusion as revealed in CT chest large volume pericardial effusion. Echocardiogram 09/04/2021 with ejection fraction 50-55% small to moderate-sized pericardial effusion present. Pericardial effusion is complex with fibrin appearing material as well as soft tissue thickening/density noted # grade 1 diastolic dysfunction # Hyponatremia mild # Diastolic dysfunction # Hypertension # History of breast cancer in the past # Chronic normocytic anemia # Agitation 09/11/2019 to given Zyprexa x1 # DVT prophylaxis on Eliquis # Code status do not resuscitate # residential collections (2) Acute pericardial effusion: Code(s): I30.9 - Acute pericarditis, unspecified Status: Acute Assessment and Plan: patient was seen by Cardiology and patient does not need further workup (3) Elevated brain natriuretic peptide (BNP) level: Code(s): R79.89 - Other specified abnormal findings of blood chemistry Status: Acute Assessment and Plan: Echo suggests diastolic dysfunction Continue low-dose of diuretic Cardiology following (4) Abnormal finding on urinalysis: Code(s): R82.90 - Unspecified abnormal findings in urine Status: Acute Assessment and Plan: no bacterial growth, (5) Acute hypokalemia: Code(s): E87.6 - Hypokalemia Status: Acute Assessment and Plan: will monitor and supplement (6) Leukocytosis: Code(s): D72.829 - Elevated white blood cell count, unspecified Status: Acute Assessment and Plan: most likely secondary to pneumonia (7) Electrolyte abnormality: Code(s): E87.8 - Other disorders of electrolyte and fluid balance, not elsewhere classified Status: Acute (8) Constipation: Code(s): K59.00 - Constipation, unspecified Status: Acute Subjective Date/time seen: 09/15/21 13:23 Interval history: 09/11/2021 interval history:?patient is 70-year-old female presented emergency department with complaint of shortness of? breath was? found to have pleural effusion status post ultrasound-guided thoracentesis on 09/06 yielding??950 mL of slightly green-tinged yellowish fluid, g stain was negative and cultures are pending, patient seen by pulmonology recommended to con
[2021-09-15 16:37] LABS: Glucose Point of Care 213 mg/dl (65-105)
[2021-09-15 17:07] LABS: Glucose Point of Care 205 mg/dl (65-105)
--- NOTE | 2021-09-15 19:34 | PM.PNPUL ---
Progress Note: A&P Assessment and Plan (1) Pleural effusion: Code(s): J90 - Pleural effusion, not elsewhere classified Status: Acute Assessment and Plan: Large left-sided parapneumonic effusion, improved pH. The effusion is still large. She had a thoracentesis September 07, with 950 ml green tinged fluid, pH low, 7.289; no WBC in the Gram stain. September 11, repeat thoracentesis shows pH is 7.487, normal. She has a parapneumonia effusion, improved with antibiotics. Differential is acceptable, 54% neutrophils, 28% monocytes, 9 macrophages, 3 mesothelial cells, 4% Lymphs. The chemistries are not back for today's tap. The fluid was clear this time, not cloudy or green. She remains on 3 L/min, could be weaned as her saturation is 98%. Overall looks better. She continues with diuresis Lasix 40 mg a day. Her WBC is 10.2, trending down. She is not having fevers. She has other issues including pericardial effusion, hyponatremia on Lasix 40 mg a day and sertraline, diastolic dysfunction; HTN; she had breast cancer in the past. Initial wt 84.9 kg, now 82.9m, seems to be a steady trend downward. It is not clear what the best path forward is to decrease the size of this persistently large effusion. She has been treated with antibiotics; she is on Doxycycline since September 08. Overall, her prognosis is guarded, however she is improving. Will continue to follow with you. Her MELISSA cascade was sent September 06, negative for DS DNA, chromatin, SEGMENTAL WALL INSTALLER, Sm/SEGMENTAL WALL INSTALLER, SS-A, SS-B, Yane-1, centromere B, Scl-70, ribosomal P. it was sent because she had both pleural and pericardial effusions, can be seen in SLE. Time Spent With Patient Time with patient: less than 15 minutes Subjective Date/time seen: 09/15/21 19:34 Interval history: Room 301 hospital follow up : Montse Zarate is a 70 year old woman who was admitted with a pericardial and pleural effusion. She has a large left pleural effusion that was re-tapped pH 7.487 much better. differential = 54% neutrophils, 4% Lymphs, 28% monocytes, 3 mesothelial cells and 9% macrophages.? The fluid has a normal pH.? She does not have an empyema, and oral antibiotics will be sufficient to treat this effusion. On the initial thoracentesis, the pH was below normal 7.289 on September 06. She improved with treatment with antibiotics. ? She is sitting up in bed, wants something for her hemorrhoids and wants her socks off. Not in distress, 3 L/min saturation 98%, can wean this, goal is saturation 90-94%. She is very hard of hearing and maybe demented. PMH: atrial fibrillation on Eliquis, HTN, asthma/COPD on O2 3 L/min, DM type 2. Review of Systems Review of Systems: All systems reviewed & are unremarkable except as noted in HPI and below Exam Narrative: GEN: Alert, oriented, no distress and no accessory muscle use. HEENT: pupils are equal, EOMI, symmetrical face; oral membranes moist, Mallampati II airway NECK: Trachea is midline CHEST: Equal air entry, symmetric excursion, clearer in bases. Left is still decreased compared to the right posteriorly. CV: Regular S1S2 no m/g/r ABD : (+) bowel sounds Extremities : no clubbing or cyanosis; she has 1+ edema legs and hands. PSYCH: Pleasant, alert, very hard of hearing. Says she feels ok and denies being short of breath. Objective Data Vital Signs Vital Signs: Vital Signs - 24 hr 09/14/21 20:19 09/14/21 22:00 09/14/21 20:00 Temperature 36.6 C Pulse Rate 80 82 Respiratory Rate 18 18 Blood Pressure 136/50 L Pulse Oximetry 99 92 92 Oxygen Delivery Nasal Cannula Nasal Cannula Oxygen Flow Rate 3 3 09/15/21 01:15 09/15/21 01:25 09/15/21 05:09 Temperature 36.1 C L Pulse Rate 72 72 78 Respiratory Rate 18 18 20 Blood Pressure 117/72 Pulse Oximetry 93 Oxygen Delivery Oxygen Flow Rate 09/15/21 08:49 09/15/21 08:00 09/15/21 09:25 Temperature Pulse Rate 72 78 Respiratory Rat
[2021-09-15] MEDS: ATORVASTATIN 20 MG TABLET BY MOUTH (20:37)
[2021-09-15] MEDS: OLANZapine 2.5 MG TABLET PO (20:37)
[2021-09-15] MEDS: SERTRALINE HCL 50 MG TABLET 100 MG PO (20:37)
[2021-09-15] MEDS: AMITRIPTYLINE HCL 10 MG TABLET PO (20:37)
[2021-09-15 20:47] LABS: Glucose Point of Care 220 mg/dl (65-105)
[2021-09-16] VITALS (16 sets, daily range): BP systolic 106–129; BP diastolic 52–76; PULSE 65–82; RESP 16–20; TEMP 36–36.2; O2SAT 97–100
[2021-09-16] MEDS: IPRATROPIUM BR 0.02% INH SOLN 0.5 MG/2.5 ML VIAL INHALATION ×4 (03:40→19:59)
[2021-09-16] MEDS: ALBUTEROL SULFATE NEB 2.5 MG/0.5 ML INH INHALATION ×4 (03:40→19:59)
[2021-09-16 07:41] LABS: Glucose Point of Care 240 mg/dl (65-105)
[2021-09-16 08:07] LABS: Hematocrit 30.6 % (37.0-47.0); Hemoglobin 9.4 g/dL (12.0-15.0); Mean Corpuscular HGB Conc 30.7 g/dl (32-36); Mean Corpuscular Hemoglobin 27.2 pg (26-34); Mean Corpuscular Volume 88.7 fl (80-100); Mean Platelet Volume 9.2 fl (7.4-10.4); Platelet Count Result 477 k/mm3 (150-375); Red Blood Count 3.45 M/mm3 (4.2-5.4); White Blood Count 7.2 K/mm3 (4.5-10.0)
[2021-09-16] MEDS: FLUTICASONE/SALMETEROL 115-21 MCG INHALER 1 PUFF 2 PUFF INHALATION ×2 (08:16→20:04)
[2021-09-16 08:20] LABS: Anion Gap 5 mmol/L (8-16); Blood Urea Nitrogen 17 mg/dL (7-17); Calcium 8.7 mg/dL (8.4-10.2); Carbon Dioxide 39 mmol/L (22-30); Chloride 85 mmol/L (98-107); Estimated Glomerular Filt Rate > 60; Glucose 231 mg/dL (65-110); Potassium 3.3 mmol/L (3.4-5.0); Sodium 129 mmol/L (137-145)
[2021-09-16] MEDS: INSULIN ASPART (*BKC) 100 UNITS/ML SUB-Q ×4 (09:16→16:16)
[2021-09-16 11:38] LABS: pH Pleural Fluid 7.497 (7.210-7.500)
[2021-09-16 12:15] LABS: Glucose Point of Care 202 mg/dl (65-105)
[2021-09-16 12:38] LABS: Appearance Pleural Fluid Clear (Clear); Color Pleural Fluid Yellow (Colorless); Nucleated Cell Pleural Fluid 374 /uL (0-1000); Pleural fluid source Pleural fluid; RBC Pleural Fluid 918 /uL (0-0)
[2021-09-16 12:42] LABS: Lymphocytes Pleural Fluid 27 %; Macrophages Pleural Fluid 21 %; Mesothelial Cells Pleural Flui 44 %; Neutrophils Pleural Fluid 8 % (0-25)
--- NOTE | 2021-09-16 13:07 | PM.IMPN ---
Progress Note: A&P Assessment and Plan (1) Pleural effusion: Code(s): J90 - Pleural effusion, not elsewhere classified Status: Acute Assessment and Plan: # Large left-sided pleural effusion: Exudative pleural effusion 09/07 S/P??Successful ultrasound-guided thoracentesis yielding 950 mL of slightly green-tinged yellowish fluid. -thoracentesis delayed as patient was on anticoagulation -continue supplemental oxygen -continue antibiotics for possible pneumonia as seen on chest x-ray. Pleural fluid analysis with neutrophilia noted along with elevated LDH total protein and cholesterol suggestive of exudative effusion. Cultures been negative Pleural fluid cytology 09/06/2021 with many neutrophils and reactive mesothelial cells suggesting acute inflammation. Repeat thoracentesis reveals similar findings on 09/11/2021 MELISSA is negative, COVID is negative -patient still has residual pleural effusion.? Since patient is at baseline oxygen need.? Will resume anticoagulation and not pursue further thoracentesis -continue diuretics with Lasix 40 mg daily Currently on doxycycline. Repeat chest x-ray with persistent pleural effusion Check procalcitonin Continue on doxycycline Discussed with [id number] regarding surgical intervention versus intermittent thoracentesis. She is open to both the option however she is also aware that we might need to transfer her to a higher facility for surgical intervention. Discussed pulmonary Will plan for repeat thoracentesis therapeutic drain is. Continue doxycycline Would like to defer surgical treatment as poor functional status Will to space with family/power associate attorney again. Discussed with her 09/14/2021 Status post left repeat thoracentesis 09/16/2021 # Pericardial effusion as revealed in CT chest large volume pericardial effusion. Echocardiogram 09/04/2021 with ejection fraction 50-55% small to moderate-sized pericardial effusion present. Pericardial effusion is complex with fibrin appearing material as well as soft tissue thickening/density noted # grade 1 diastolic dysfunction # Hyponatremia mild # Diastolic dysfunction #Hypertension # History of breast cancer in the past # Chronic normocytic anemia # Agitation 09/11/2019 to given Zyprexa x1 # DVT prophylaxis on Eliquis # Code status do not resuscitate # type 2 diabetes on insulin at home 55 units of Lantus and 8 units 3 times a day. 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 (2) Acute pericardial effusion: Code(s): I30.9 - Acute pericarditis, unspecified Status: Acute Assessment and Plan: patient was seen by Cardiology and patient does not need further workup (3) Elevated brain natriuretic peptide (BNP) level: Code(s): R79.89 - Other specified abnormal findings of blood chemistry Status: Acute Assessment and Plan: Echo suggests diastolic dysfunction Continue low-dose of diuretic Cardiology following (4) Abnormal finding on urinalysis: Code(s): R82.90 - Unspecified abnormal findings in urine Status: Acute Assessment and Plan: no bacterial growth, (5) Acute hypokalemia: Code(s): E87.6 - Hypokalemia Status: Acute Assessment and Plan: will monitor and supplement (6) Leukocytosis: Code(s): D72.829 - Elevated white blood cell count, unspecified Status: Acute Assessment and Plan: most likely secondary to pneumonia (7) Electrolyte abnormality: Code(s): E87.8 - Other disorders of electrolyte and fluid balance, not elsewhere classified Status: Acute (8) Constipation: Code(s): K59.00 - Constipation, unspecified Status: Acute Subjective Date/time seen: 09/16/21 13:07 Interval history: 09/11/2021 interval history:?patient is 70-year-old female presented emergency department with complaint of shortness of? breath was? found to have pleural effusion status po
[2021-09-16] MEDS: GABAPENTIN 100 MG CAPSULE PO ×2 (13:29→16:16)
[2021-09-16] MEDS: DOCUSATE SODIUM LIQ 100 MG/10 ML UDC PO ×2 (13:29→20:19)
[2021-09-16] MEDS: MAGNESIUM OXIDE 400 MG TABLET PO (13:30)
[2021-09-16] MEDS: DIVALPROEX SODIUM SPRINKLE 125 MG CAP.DR 250 MG PO ×2 (13:30→20:19)
[2021-09-16] MEDS: PANTOPRAZOLE 40 MG TABLET PO ×2 (13:30→16:16)
[2021-09-16] MEDS: DONEPEZIL HCL 10 MG TABLET BY MOUTH (13:31)
[2021-09-16] MEDS: DOXYCYCLINE HYCLATE 100 MG TABLET PO ×2 (13:31→20:19)
[2021-09-16] MEDS: POTASSIUM CHLORIDE 20 MEQ TABLET 40 MEQ PO (13:35)
[2021-09-16 16:01] LABS: Glucose Point of Care 256 mg/dl (65-105)
[2021-09-16] MEDS: cycloSPORINE 0.4 ML OPHTH SOLUTION 2 DROP EACH EYE (16:15)
[2021-09-16] MEDS: AMIODARONE HCL 200 MG TABLET BY MOUTH (16:16)
[2021-09-16] MEDS: OLANZapine 2.5 MG TABLET PO (20:19)
[2021-09-16] MEDS: SERTRALINE HCL 50 MG TABLET 100 MG PO (20:19)
[2021-09-16] MEDS: AMITRIPTYLINE HCL 10 MG TABLET PO (20:19)
[2021-09-16] MEDS: ATORVASTATIN 20 MG TABLET BY MOUTH (20:19)
[2021-09-16] MEDS: INSULIN GLARGINE (*BKC) 100 UNITS/ML 12 UNITS SUB-Q (20:23)
[2021-09-16 20:39] LABS: Glucose Point of Care 304 mg/dl (65-105)
[2021-09-17] VITALS (14 sets, daily range): BP systolic 102–118; BP diastolic 55–72; PULSE 69–79; RESP 14–20; TEMP 35.8–36.1; O2SAT 93–100
[2021-09-17] MEDS: IPRATROPIUM BR 0.02% INH SOLN 0.5 MG/2.5 ML VIAL INHALATION ×4 (02:43→20:18)
[2021-09-17] MEDS: ALBUTEROL SULFATE NEB 2.5 MG/0.5 ML INH INHALATION ×4 (02:43→20:19)
[2021-09-17 06:09] LABS: Hematocrit 29.5 % (37.0-47.0); Mean Corpuscular HGB Conc 30.5 g/dl (32-36); Mean Corpuscular Hemoglobin 26.5 pg (26-34); Mean Corpuscular Volume 86.8 fl (80-100); Mean Platelet Volume 9.7 fl (7.4-10.4); Platelet Count Result 380 k/mm3 (150-375); Red Cell Distribution Width 16.4 % (11.5-14.5); White Blood Count 7.4 K/mm3 (4.5-10.0)
[2021-09-17 06:30] LABS: Anion Gap 6 mmol/L (8-16); Blood Urea Nitrogen 16 mg/dL (7-17); Calcium 8.5 mg/dL (8.4-10.2); Carbon Dioxide 35 mmol/L (22-30); Chloride 86 mmol/L (98-107); Estimated Glomerular Filt Rate > 60; Glucose 255 mg/dL (65-110); Potassium 3.4 mmol/L (3.4-5.0); Sodium 127 mmol/L (137-145)
[2021-09-17 07:57] LABS: Glucose Point of Care 266 mg/dl (65-105)
[2021-09-17] MEDS: FLUTICASONE/SALMETEROL 115-21 MCG INHALER 1 PUFF 2 PUFF INHALATION ×2 (09:03→20:00)
[2021-09-17] MEDS: INSULIN ASPART (*BKC) 100 UNITS/ML SUB-Q ×6 (09:11→17:02)
[2021-09-17] MEDS: DOCUSATE SODIUM LIQ 100 MG/10 ML UDC PO ×2 (09:12→20:00)
[2021-09-17] MEDS: cycloSPORINE 0.4 ML OPHTH SOLUTION 2 DROP EACH EYE ×2 (09:12→17:02)
[2021-09-17] MEDS: GABAPENTIN 100 MG CAPSULE PO ×3 (09:13→17:02)
[2021-09-17] MEDS: AMIODARONE HCL 200 MG TABLET BY MOUTH ×2 (09:13→17:02)
[2021-09-17] MEDS: MAGNESIUM OXIDE 400 MG TABLET PO (09:13)
[2021-09-17] MEDS: DOXYCYCLINE HYCLATE 100 MG TABLET PO (09:13)
[2021-09-17] MEDS: FUROSEMIDE 40 MG TABLET PO (09:14)
[2021-09-17] MEDS: PANTOPRAZOLE 40 MG TABLET PO ×2 (09:14→17:02)
[2021-09-17] MEDS: DIVALPROEX SODIUM SPRINKLE 125 MG CAP.DR 250 MG PO ×2 (09:14→20:00)
[2021-09-17] MEDS: DONEPEZIL HCL 10 MG TABLET BY MOUTH (09:14)
[2021-09-17 11:50] LABS: Glucose Point of Care 259 mg/dl (65-105)
--- NOTE | 2021-09-17 12:56 | PM.IMPN ---
Progress Note: A&P Assessment and Plan (1) Pleural effusion: Code(s): J90 - Pleural effusion, not elsewhere classified Status: Acute Assessment and Plan: # Large left-sided pleural effusion: Exudative pleural effusion 09/07 S/P??Successful ultrasound-guided thoracentesis yielding 950 mL of slightly green-tinged yellowish fluid. -thoracentesis delayed as patient was on anticoagulation -continue supplemental oxygen -continue antibiotics for possible pneumonia as seen on chest x-ray. Pleural fluid analysis with neutrophilia noted along with elevated LDH total protein and cholesterol suggestive of exudative effusion. Cultures been negative Pleural fluid cytology 09/06/2021 with many neutrophils and reactive mesothelial cells suggesting acute inflammation. Repeat thoracentesis reveals similar findings on 09/11/2021 MELISSA is negative, COVID is negative -patient still has residual pleural effusion.? Since patient is at baseline oxygen need.? Will resume anticoagulation and not pursue further thoracentesis -continue diuretics with Lasix 40 mg daily Currently on doxycycline. Repeat chest x-ray with persistent pleural effusion Check procalcitonin which came back at 0.3 Continue on doxycycline Discussed with [id number] regarding surgical intervention versus intermittent thoracentesis. She is open to both the option however she is also aware that we might need to transfer her to a higher facility for surgical intervention. Discussed pulmonary Status post ultrasound-guided thoracentesis on 09/16/2021 with drainage of cloudy yellowish fluid 400 cc Pleural fluid analysis with improvement in neutrophilia as compared to previous tap. She still has moderate amount of residual pleural effusion. I am unsure if there are loculations leading to non drainage of some of these effusion Pleural fluid analysis suggestive of parapneumonic effusion complicated, not empyema and would need to be managed with tube thoracostomy for continued drainage Will discuss this with Pulmonary and for the explore nonsurgical options Continue doxycycline Would like to defer surgical treatment as poor functional status Discussed with POA 09/14/2021 # Pericardial effusion as revealed in CT chest large volume pericardial effusion. Echocardiogram 09/04/2021 with ejection fraction 50-55% small to moderate-sized pericardial effusion present. Pericardial effusion is complex with fibrin appearing material as well as soft tissue thickening/density noted # grade 1 diastolic dysfunction # Hyponatremia mild # Diastolic dysfunction #Hypertension # History of breast cancer in the past # Chronic normocytic anemia # Agitation 09/11/2019 to given Zyprexa x1 # DVT prophylaxis on Eliquis # Code status do not resuscitate # type 2 diabetes on insulin at home 55 units of Lantus and 8 units 3 times a day. Restart lower dose Lantus and lispro prandial. Adjust as needed # vice president education (2) Acute pericardial effusion: Code(s): I30.9 - Acute pericarditis, unspecified Status: Acute Assessment and Plan: patient was seen by Cardiology and patient does not need further workup (3) Elevated brain natriuretic peptide (BNP) level: Code(s): R79.89 - Other specified abnormal findings of blood chemistry Status: Acute Assessment and Plan: Echo suggests diastolic dysfunction Continue low-dose of diuretic Cardiology following (4) Abnormal finding on urinalysis: Code(s): R82.90 - Unspecified abnormal findings in urine Status: Acute Assessment and Plan: no bacterial growth, (5) Acute hypokalemia: Code(s): E87.6 - Hypokalemia Status: Acute Assessment and Plan: will monitor and supplement (6) Leukocytosis: Code(s): D72.829 - Elevated white blood cell count, unspecified Status: Acute Assessment and Plan: most likely secondary to pneumonia (7) Electrolyte abnormality:
--- NOTE | 2021-09-17 13:16 | PM.PNPUL ---
Progress Note: A&P Assessment and Plan (1) Pleural effusion: Code(s): J90 - Pleural effusion, not elsewhere classified Status: Acute Assessment and Plan: Large left-sided parapneumonic effusion, improved pH. The effusion is still large. Has had 3 taps; September 6, 950 ml green tinged fluid on thoracentesis; pH low, 7.289; no cell counts reported. Negative MELISSA panel; DS DNA, chromatin, COMPENSATION AND BENEFITS MANAGER, Sm/COMPENSATION AND BENEFITS MANAGER, SS-A, SS-B, Yane-1, centromere B, Scl-70, ribosomal P. September 11, 600 ml clear thoracentesis pH is 7.487, normal. 54% neutrophils, 28% monocytes, 9 macrophages, 3 mesothelial, 4% Lymphs. September 16, 400 ml clear thoracentesis, pH 7.49, wbc 374- normal; rbc 018. Diff: 8% neutrophils, 27 Lymphs, 28 macrophages, 44 mesothelial She has a parapneumonia effusion, improved with antibiotics. She has been on doxycycline, may improve with switch to pipericillin-tazobactam. This may have come from an infection as she had a pericardial effusion at the same time. Her pH has improved, the fluid is more clear. She may need drainage with a pigtail catheter to drain more. She has had about 2 L drained over 3 separate procedures. She is afebrile, has normal WBC. Overall looks better. Other issues include DM type 2 with glucose in the 200s, HTN, immobility, hyponatremia Na+ now 127, diastolic dysfunction;she had breast cancer in the past. She was diuresed initially with weight loss. Remains edematous. Her weight is trending downward. Overall, her prognosis is guarded, however she is improving. I spoke with the patient and her [facility] about possible plans. She said that the patient has a long history of a difficult life, and now is the time of her life as far as her happiness and stable living situation. The patient says she wants to proceed with all possible treatments including a chest tube. She is ok with a transfer to another hospital if needed. Will continue to follow with you. d/w Dr Rangel. (2) Chronic respiratory failure with hypoxia, on home O2 therapy: Code(s): J96.11 - Chronic respiratory failure with hypoxia; Z99.81 - Dependence on supplemental oxygen Status: Acute Assessment and Plan: She has been on O2 at home for a few years, and is on her baseline, 3 L/min. Subjective Date/time seen: 09/17/21 13:16 Interval history: Room 301 hospital follow up?: Montse Zarate is a 71 year old woman who was admitted with a pericardial and pleural effusion, . She has a large left pleural effusion that was re-tapped pH 7.487 much better. differential = 54% neutrophils, 4% Lymphs, 28% monocytes, 3 mesothelial cells and 9% macrophages.? The fluid has a normal pH.? She does not have an empyema, improved with doxycycline. [facility] has had 3 thoracenteses. 1st: September 06, 950 ml green tinged fluid on thoracentesis; pH low, 7.289; no cell counts reported. Negative MELISSA panel; DS DNA, chromatin, COMPENSATION AND BENEFITS MANAGER, Sm/COMPENSATION AND BENEFITS MANAGER, SS-A, SS-B, Yane-1, centromere B, Scl-70, ribosomal P. 2nd: September 11, 600 ml clear thoracentesis pH is 7.487, normal. 54% neutrophils, 28% monocytes, 9 macrophages, 3 mesothelial, 4% Lymphs. 3rd: September 16, 400 ml clear thoracentesis, pH 7.49, wbc 374- normal; rbc 018. Diff: 8% neutrophils, 27 Lymphs, 28 macrophages, 44 mesothelial She is sitting up in bed, wants something for her pain on her bottom. Not in distress, 3 L/min saturation 98%, can wean this, goal is saturation 90-94%. She is very hard of hearing and demented. SHe is not active, stays in bed most of the day, does not use the remote or controls for the bed. PMH: atrial fibrillation on Eliquis, HTN, asthma/COPD on O2 3 L/min, DM type 2. Review of Systems Review of Systems: She has discomfort on her bottom, and wants the skin cream the nurses have been using. I talked with Emilia MENDEZ, the patient gets this multiple times a day and a large amou
[2021-09-17 13:34] LABS: Amylase, Pleural Fluid 25 U/L
[2021-09-17 16:06] LABS: SARS-CoV-2 RNA PCR Negative
[2021-09-17 16:18] LABS: Glucose Point of Care 209 mg/dl (65-105)
[2021-09-17] MEDS: APIXABAN 5 MG TABLET PO (20:00)
[2021-09-17] MEDS: ATORVASTATIN 20 MG TABLET BY MOUTH (20:00)
[2021-09-17] MEDS: AMITRIPTYLINE HCL 10 MG TABLET PO (20:00)
[2021-09-17] MEDS: OLANZapine 2.5 MG TABLET PO (20:00)
[2021-09-17] MEDS: SERTRALINE HCL 50 MG TABLET 100 MG PO (20:00)
[2021-09-17] MEDS: INSULIN GLARGINE (*BKC) 100 UNITS/ML 20 UNITS SUB-Q (20:05)
[2021-09-17 20:34] LABS: Glucose Point of Care 211 mg/dl (65-105)
[2021-09-18] VITALS (16 sets, daily range): BP systolic 99–105; BP diastolic 52–63; PULSE 70–82; RESP 16–20; TEMP 36–36.4; O2SAT 91–98
[2021-09-18] MEDS: IPRATROPIUM BR 0.02% INH SOLN 0.5 MG/2.5 ML VIAL INHALATION ×4 (02:59→20:10)
[2021-09-18] MEDS: ALBUTEROL SULFATE NEB 2.5 MG/0.5 ML INH INHALATION ×4 (03:01→20:10)
[2021-09-18 06:18] LABS: Hematocrit 32.5 % (37.0-47.0); Hemoglobin 9.7 g/dL (12.0-15.0); Mean Corpuscular HGB Conc 29.8 g/dl (32-36); Mean Corpuscular Hemoglobin 26.4 pg (26-34); Mean Corpuscular Volume 88.3 fl (80-100); Mean Platelet Volume 9.1 fl (7.4-10.4); Platelet Count Result 416 k/mm3 (150-375); Red Blood Count 3.68 M/mm3 (4.2-5.4); Red Cell Distribution Width 16.5 % (11.5-14.5); White Blood Count 6.4 K/mm3 (4.5-10.0)
[2021-09-18 06:23] LABS: Blood Urea Nitrogen 13 mg/dL (7-17); Calcium 8.3 mg/dL (8.4-10.2); Carbon Dioxide > 40 mmol/L (22-30); Chloride 87 mmol/L (98-107); Estimated Glomerular Filt Rate > 60; Glucose 210 mg/dL (65-110); Potassium 3.1 mmol/L (3.4-5.0); Sodium 128 mmol/L (137-145)
[2021-09-18 07:52] LABS: Glucose Point of Care 197 mg/dl (65-105)
[2021-09-18] MEDS: FLUTICASONE/SALMETEROL 115-21 MCG INHALER 1 PUFF 2 PUFF INHALATION ×2 (08:02→20:10)
[2021-09-18] MEDS: DIVALPROEX SODIUM SPRINKLE 125 MG CAP.DR 250 MG PO ×2 (09:05→20:57)
[2021-09-18] MEDS: PANTOPRAZOLE 40 MG TABLET PO ×2 (09:05→16:55)
[2021-09-18] MEDS: FUROSEMIDE 40 MG TABLET PO (09:05)
[2021-09-18] MEDS: DOCUSATE SODIUM LIQ 100 MG/10 ML UDC PO ×2 (09:05→20:57)
[2021-09-18] MEDS: INSULIN ASPART (*BKC) 100 UNITS/ML SUB-Q ×5 (09:05→16:59)
[2021-09-18] MEDS: cycloSPORINE 0.4 ML OPHTH SOLUTION 2 DROP EACH EYE ×2 (09:05→16:54)
[2021-09-18] MEDS: AMIODARONE HCL 200 MG TABLET BY MOUTH ×2 (09:05→16:55)
[2021-09-18] MEDS: DONEPEZIL HCL 10 MG TABLET BY MOUTH (09:07)
[2021-09-18] MEDS: MAGNESIUM OXIDE 400 MG TABLET PO (09:07)
[2021-09-18] MEDS: POTASSIUM CHLORIDE 20 MEQ TABLET 40 MEQ PO (09:07)
[2021-09-18] MEDS: GABAPENTIN 100 MG CAPSULE PO ×3 (09:07→16:54)
[2021-09-18] MEDS: APIXABAN 5 MG TABLET PO ×2 (09:07→20:56)
[2021-09-18 11:38] LABS: Glucose Point of Care 278 mg/dl (65-105)
[2021-09-18 16:41] LABS: Glucose Point of Care 294 mg/dl (65-105)
--- NOTE | 2021-09-18 17:06 | PM.IMPN ---
Progress Note: A&P Assessment and Plan (1) Pleural effusion: Code(s): J90 - Pleural effusion, not elsewhere classified Status: Acute Assessment and Plan: # Large left-sided pleural effusion: Exudative pleural effusion 09/07 S/P??Successful ultrasound-guided thoracentesis yielding 950 mL of slightly green-tinged yellowish fluid. -thoracentesis delayed as patient was on anticoagulation -continue supplemental oxygen -continue antibiotics for possible pneumonia as seen on chest x-ray. Pleural fluid analysis with neutrophilia noted along with elevated LDH total protein and cholesterol suggestive of exudative effusion. Cultures been negative Pleural fluid cytology 09/06/2021 with many neutrophils and reactive mesothelial cells suggesting acute inflammation. Repeat thoracentesis reveals similar findings on 09/11/2021 MELISSA is negative, COVID is negative -patient still has residual pleural effusion.? Since patient is at baseline oxygen need.? Will resume anticoagulation and not pursue further thoracentesis -continue diuretics with Lasix 40 mg daily Currently on doxycycline. Repeat chest x-ray with persistent pleural effusion Check procalcitonin which came back at 0.3 Continue on doxycycline Discussed with [id number] regarding surgical intervention versus intermittent thoracentesis. She is open to both the option however she is also aware that we might need to transfer her to a higher facility for surgical intervention. Discussed pulmonary Status post ultrasound-guided thoracentesis on 09/16/2021 with drainage of cloudy yellowish fluid 400 cc Pleural fluid analysis with improvement in neutrophilia as compared to previous tap. She still has moderate amount of residual pleural effusion. I am unsure if there are loculations leading to non drainage of some of these effusion Pleural fluid analysis suggestive of parapneumonic effusion complicated, not empyema and would need to be managed with tube thoracostomy for continued drainage Discussed with pulmonary and suggest transfer for pigtail catheter placement and/or VATS. Discussed with hospitalist at [facility] and accept the transfer. Awaiting bed placement Continue doxycycline. Which is changed to Zosyn Discussed with POA 09/14/2021 # Pericardial effusion as revealed in CT chest large volume pericardial effusion. Echocardiogram 09/04/2021 with ejection fraction 50-55% small to moderate-sized pericardial effusion present. Pericardial effusion is complex with fibrin appearing material as well as soft tissue thickening/density noted # grade 1 diastolic dysfunction # Hyponatremia mild # Diastolic dysfunction #Hypertension # History of breast cancer in the past # Chronic normocytic anemia # Agitation 09/11/2019 to given Zyprexa x1 # DVT prophylaxis on Eliquis # Code status do not resuscitate # type 2 diabetes on insulin at home 55 units of Lantus and 8 units 3 times a day. Restart lower dose Lantus and lispro prandial. 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 (2) Acute pericardial effusion: Code(s): I30.9 - Acute pericarditis, unspecified Status: Acute Assessment and Plan: patient was seen by Cardiology and patient does not need further workup (3) Elevated brain natriuretic peptide (BNP) level: Code(s): R79.89 - Other specified abnormal findings of blood chemistry Status: Acute Assessment and Plan: Echo suggests diastolic dysfunction Continue low-dose of diuretic Cardiology following (4) Abnormal finding on urinalysis: Code(s): R82.90 - Unspecified abnormal findings in urine Status: Acute Assessment and Plan: no bacterial growth, (5) Acute hypokalemia: Code(s): E87.6 - Hypokalemia Status: Acute Assessment and Plan: will monitor and supplement (6) Leukocytosis: Code(s): D72.829 - Elevated white blood cell count, unspecified Status: Acute
[2021-09-18] MEDS: ATORVASTATIN 20 MG TABLET BY MOUTH (20:56)
[2021-09-18] MEDS: AMITRIPTYLINE HCL 10 MG TABLET PO (20:56)
[2021-09-18] MEDS: OLANZapine 2.5 MG TABLET PO (20:58)
[2021-09-18] MEDS: SERTRALINE HCL 50 MG TABLET 100 MG PO (20:58)
[2021-09-18] MEDS: INSULIN GLARGINE (*BKC) 100 UNITS/ML 20 UNITS SUB-Q (21:09)
--- NOTE | 2021-09-18 23:10 | PC.NURSE ---
09/18/21 [id number] hawa of transfer center called with update, no bed available.
[2021-09-18 23:14] LABS: Glucose Point of Care 222 mg/dl (65-105)
[2021-09-19] VITALS (16 sets, daily range): BP systolic 96–124; BP diastolic 50–65; PULSE 69–77; RESP 16–20; TEMP 36.1–36.4; O2SAT 91–96
[2021-09-19] MEDS: ALBUTEROL SULFATE NEB 2.5 MG/0.5 ML INH INHALATION ×4 (02:30→19:19)
[2021-09-19] MEDS: IPRATROPIUM BR 0.02% INH SOLN 0.5 MG/2.5 ML VIAL INHALATION ×4 (02:30→19:19)
[2021-09-19 06:29] LABS: Hemoglobin 9.2 g/dL (12.0-15.0); Mean Corpuscular HGB Conc 29.7 g/dl (32-36); Mean Corpuscular Hemoglobin 26.6 pg (26-34); Mean Corpuscular Volume 89.6 fl (80-100); Mean Platelet Volume 9.1 fl (7.4-10.4); Platelet Count Result 403 k/mm3 (150-375); Red Blood Count 3.46 M/mm3 (4.2-5.4); Red Cell Distribution Width 16.5 % (11.5-14.5); White Blood Count 7.4 K/mm3 (4.5-10.0)
[2021-09-19 06:42] LABS: Anion Gap 4 mmol/L (8-16); Blood Urea Nitrogen 12 mg/dL (7-17); Calcium 8.4 mg/dL (8.4-10.2); Carbon Dioxide 39 mmol/L (22-30); Chloride 88 mmol/L (98-107); Estimated Glomerular Filt Rate > 60; Glucose 192 mg/dL (65-110); Potassium 3.5 mmol/L (3.4-5.0); Sodium 131 mmol/L (137-145)
[2021-09-19 07:40] LABS: Glucose Point of Care 192 mg/dl (65-105)
[2021-09-19] MEDS: FLUTICASONE/SALMETEROL 115-21 MCG INHALER 1 PUFF 2 PUFF INHALATION ×2 (07:57→19:20)
[2021-09-19] MEDS: INSULIN ASPART (*BKC) 100 UNITS/ML SUB-Q ×5 (08:27→17:28)
[2021-09-19] MEDS: cycloSPORINE 0.4 ML OPHTH SOLUTION 2 DROP EACH EYE ×2 (08:42→17:32)
[2021-09-19] MEDS: DOCUSATE SODIUM LIQ 100 MG/10 ML UDC PO ×2 (08:42→20:04)
[2021-09-19] MEDS: APIXABAN 5 MG TABLET PO ×2 (08:42→20:04)
[2021-09-19] MEDS: AMIODARONE HCL 200 MG TABLET BY MOUTH ×2 (08:42→17:31)
[2021-09-19] MEDS: DIVALPROEX SODIUM SPRINKLE 125 MG CAP.DR 250 MG PO ×2 (08:42→20:05)
[2021-09-19] MEDS: FUROSEMIDE 40 MG TABLET PO (08:43)
[2021-09-19] MEDS: DONEPEZIL HCL 10 MG TABLET BY MOUTH (08:43)
[2021-09-19] MEDS: MAGNESIUM OXIDE 400 MG TABLET PO (08:43)
[2021-09-19] MEDS: GABAPENTIN 100 MG CAPSULE PO ×3 (08:43→17:32)
[2021-09-19] MEDS: PANTOPRAZOLE 40 MG TABLET PO ×2 (08:43→17:32)
[2021-09-19 11:36] LABS: Glucose Point of Care 254 mg/dl (65-105)
[2021-09-19 13:07] LABS: Albumin Pleural Fluid 1.7 g/dL
--- NOTE | 2021-09-19 13:10 | P.PNIM_ITS ---
Progress Note: A&P Assessment and Plan (1) Pleural effusion: Code(s): J90 - Pleural effusion, not elsewhere classified Status: Acute Assessment and Plan: # Large left-sided pleural effusion: Exudative pleural effusion 09/07 S/P??Successful ultrasound-guided thoracentesis yielding 950 mL of slightly green-tinged yellowish fluid. -thoracentesis delayed as patient was on anticoagulation -continue supplemental oxygen -continue antibiotics for possible pneumonia as seen on chest x-ray. Pleural fluid analysis with neutrophilia noted along with elevated LDH total protein and cholesterol suggestive of exudative effusion. Cultures been negative Pleural fluid cytology 09/06/2021 with many neutrophils and reactive mesothelial cells suggesting acute inflammation. Repeat thoracentesis reveals similar findings on 09/11/2021 MELISSA is negative, COVID is negative -patient still has residual pleural effusion.? Since patient is at baseline oxygen need.? Will resume anticoagulation and not pursue further thoracentesis -continue diuretics with Lasix 40 mg daily Currently on doxycycline. Repeat chest x-ray with persistent pleural effusion Check procalcitonin which came back at 0.3 Continue on doxycycline Discussed with [id number] regarding surgical intervention versus intermittent thoracentesis. She is open to both the option however she is also aware that we might need to transfer her to a higher facility for surgical intervention. Discussed pulmonary Status post ultrasound-guided thoracentesis on 09/16/2021 with drainage of cloudy yellowish fluid 400 cc Pleural fluid analysis with improvement in neutrophilia as compared to previous tap. She still has moderate amount of residual pleural effusion. I am unsure if there are loculations leading to non drainage of some of these effusion Pleural fluid analysis suggestive of parapneumonic effusion complicated, not empyema and would need to be managed with tube thoracostomy for continued drainage Discussed with pulmonary and suggest transfer for pigtail catheter placement and/or VATS. Discussed with hospitalist at [facility] and accept the transfer. Awaiting bed placement Continue doxycycline. Which is changed to Zosyn Discussed with POA 09/14/2021 # Pericardial effusion as revealed in CT chest large volume pericardial effusion. Echocardiogram 09/04/2021 with ejection fraction 50-55% small to moderate-sized pericardial effusion present. Pericardial effusion is complex with fibrin appearing material as well as soft tissue thickening/density noted # grade 1 diastolic dysfunction # Hyponatremia mild # Diastolic dysfunction #Hypertension # History of breast cancer in the past # Chronic normocytic anemia # Agitation 09/11/2019 to given Zyprexa x1 # DVT prophylaxis on Eliquis # Code status do not resuscitate # type 2 diabetes on insulin at home 55 units of Lantus and 8 units 3 times a day. Restart lower dose Lantus and lispro prandial. 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
[2021-09-19 17:58] LABS: Glucose Point of Care 298 mg/dl (65-105)
[2021-09-19] MEDS: AMITRIPTYLINE HCL 10 MG TABLET PO (20:04)
[2021-09-19] MEDS: ATORVASTATIN 20 MG TABLET BY MOUTH (20:04)
[2021-09-19] MEDS: OLANZapine 2.5 MG TABLET PO (20:04)
[2021-09-19] MEDS: INSULIN GLARGINE (*BKC) 100 UNITS/ML 20 UNITS SUB-Q (20:05)
[2021-09-19] MEDS: SERTRALINE HCL 50 MG TABLET 100 MG PO (20:05)
[2021-09-19 20:12] LABS: Glucose Point of Care 319 mg/dl (65-105)
--- NOTE | 2021-09-19 22:43 | PC.NURSE ---
09/19/21 2240 hawa of transfer center called with update, no bed available.
[2021-09-20] VITALS (15 sets, daily range): BP systolic 105–110; BP diastolic 55–66; PULSE 68–78; RESP 16–18; TEMP 36.1–36.6; O2SAT 91–94
[2021-09-20] MEDS: IPRATROPIUM BR 0.02% INH SOLN 0.5 MG/2.5 ML VIAL INHALATION ×4 (03:16→20:36)
[2021-09-20] MEDS: ALBUTEROL SULFATE NEB 2.5 MG/0.5 ML INH INHALATION ×4 (03:16→20:36)
[2021-09-20 06:59] LABS: Hematocrit 30.9 % (37.0-47.0); Hemoglobin 9.3 g/dL (12.0-15.0); Mean Corpuscular HGB Conc 30.1 g/dl (32-36); Mean Corpuscular Hemoglobin 26.7 pg (26-34); Mean Corpuscular Volume 88.8 fl (80-100); Mean Platelet Volume 9.7 fl (7.4-10.4); Platelet Count Result 398 k/mm3 (150-375); Red Blood Count 3.48 M/mm3 (4.2-5.4); Red Cell Distribution Width 16.7 % (11.5-14.5)
[2021-09-20 07:10] LABS: Anion Gap 5 mmol/L (8-16); Blood Urea Nitrogen 13 mg/dL (7-17); Calcium 8.6 mg/dL (8.4-10.2); Carbon Dioxide 36 mmol/L (22-30); Chloride 88 mmol/L (98-107); Estimated Glomerular Filt Rate > 60; Glucose 224 mg/dL (65-110); Potassium 3.3 mmol/L (3.4-5.0); Sodium 129 mmol/L (137-145)
[2021-09-20 07:35] LABS: Glucose Point of Care 216 mg/dl (65-105)
[2021-09-20] MEDS: INSULIN ASPART (*BKC) 100 UNITS/ML SUB-Q ×6 (08:25→16:57)
[2021-09-20] MEDS: cycloSPORINE 0.4 ML OPHTH SOLUTION 2 DROP EACH EYE ×2 (08:33→16:56)
[2021-09-20] MEDS: MAGNESIUM OXIDE 400 MG TABLET PO (08:35)
[2021-09-20] MEDS: GABAPENTIN 100 MG CAPSULE PO ×3 (08:35→16:56)
[2021-09-20] MEDS: FUROSEMIDE 40 MG TABLET PO (08:35)
[2021-09-20] MEDS: AMIODARONE HCL 200 MG TABLET BY MOUTH ×2 (08:35→16:55)
[2021-09-20] MEDS: DIVALPROEX SODIUM SPRINKLE 125 MG CAP.DR 250 MG PO ×2 (08:36→20:03)
[2021-09-20] MEDS: PANTOPRAZOLE 40 MG TABLET PO ×2 (08:36→16:56)
[2021-09-20] MEDS: DONEPEZIL HCL 10 MG TABLET BY MOUTH (08:36)
[2021-09-20] MEDS: APIXABAN 5 MG TABLET PO ×2 (08:36→20:04)
[2021-09-20] MEDS: FLUTICASONE/SALMETEROL 115-21 MCG INHALER 1 PUFF 2 PUFF INHALATION ×2 (09:09→20:38)
[2021-09-20 11:31] LABS: Glucose Point of Care 229 mg/dl (65-105)
--- NOTE | 2021-09-20 11:32 | PM.IMPN ---
Progress Note: A&P Assessment and Plan (1) Pleural effusion: Code(s): J90 - Pleural effusion, not elsewhere classified Status: Acute Assessment and Plan: 09/20: Large left-sided exudative pleural effusion status post thoracentesis with cytology suggesting parapneumonic effusion as opposed to empyema, awaiting bed at [facility] for pigtail catheter placement and/or VATS procedure, current leave being treated with Zosyn (2) Acute pericardial effusion: Code(s): I30.9 - Acute pericarditis, unspecified Status: Acute Assessment and Plan: Pericardial effusion as revealed in CT chest large volume pericardial effusion.? Echocardiogram 09/04/2021 with ejection fraction 50-55% small to moderate-sized pericardial effusion present.? Pericardial effusion is complex with fibrin appearing material as well as soft tissue thickening/density noted? patient was seen by Cardiology and patient does not need further workup (3) Elevated brain natriuretic peptide (BNP) level: Code(s): R79.89 - Other specified abnormal findings of blood chemistry Status: Acute Assessment and Plan: Echo suggests diastolic dysfunction Continue low-dose of diuretic Cardiology following (4) Acute hypokalemia: Code(s): E87.6 - Hypokalemia Status: Acute Assessment and Plan: will monitor and supplement (5) Leukocytosis: Code(s): D72.829 - Elevated white blood cell count, unspecified Status: Acute Assessment and Plan: most likely secondary to pneumonia (6) Constipation: Code(s): K59.00 - Constipation, unspecified Status: Acute (7) Hypertension: Code(s): I10 - Essential (primary) hypertension Status: Acute (8) Dementia: Code(s): F03.90 - Unspecified dementia without behavioral disturbance Status: Acute (9) Diabetes mellitus type 2 in obese: Code(s): E11.69 - Type 2 diabetes mellitus with other specified complication; E66.9 - Obesity, unspecified Status: Acute (10) Atrial fibrillation: Code(s): I48.91 - Unspecified atrial fibrillation Status: Acute (11) Chronic respiratory failure with hypoxia, on home O2 therapy: Code(s): J96.11 - Chronic respiratory failure with hypoxia; Z99.81 - Dependence on supplemental oxygen Status: Acute Plan Comorbidities: 1. Hypertension 2. History of breast cancer in the past 3. Chronic normocytic anemia 4. Dementia with agitation 09/10/2021, given Zyprexa x1 5. Afib on amiodarone, controlled DVT prophylaxis on Eliquis Code status do not resuscitate type 2 diabetes on insulin at home 55 units of Lantus and 8 units 3 times a day.? Restart lower dose Lantus and lispro prandial.? Adjust as needed [facility] Subjective Date/time seen: 09/20/21 11:32 Interval history: 09/20: Stable, no complaints. Awaiting bed at critical access hospital facility for higher level of care.? No overnight events noted.? No chest pain or shortness of breath.? No nausea, vomiting or diarrhea.? No fevers or chills. Review of Systems Review of Systems: ? 12 point review of systems was assessed and was negative except as noted in the HPI Exam Narrative: ?General:??No acute distress, alert and oriented per baseline HEENT:? Atraumatic, normocephalic, mucous membranes moist CV:? Regular rate and rhythm, S1, S2 Lungs:? ? Diminished at bases with some crackles Abdomen:? Soft, nontender, nondistended Extremities:? Normal to inspection Skin:? No rashes noted, no lesions or wounds seen Psych:? Euthymic, normal affect Objective Data Vital Signs Vital Signs: Vital Signs - 24 hr 09/19/21 14:32 09/19/21 14:42 09/19/21 14:00 Temperature 97.1 F L Pulse Rate 74 77 73 Respiratory Rate 16 16 18 Blood Pressure 101/58 L Pulse Oximetry 96 Oxygen Delivery 09/19/21 17:31 09/19/21 19:21 09/19/21 19:22 Temperature Pulse Rate 73 73 Respiratory R
[2021-09-20 16:34] LABS: Glucose Point of Care 231 mg/dl (65-105)
[2021-09-20] MEDS: POTASSIUM CHLORIDE 20 MEQ TABLET 40 MEQ PO (18:17)
[2021-09-20] MEDS: INSULIN GLARGINE (*BKC) 100 UNITS/ML 20 UNITS SUB-Q (20:03)
[2021-09-20] MEDS: OLANZapine 2.5 MG TABLET PO (20:04)
[2021-09-20] MEDS: AMITRIPTYLINE HCL 10 MG TABLET PO (20:04)
[2021-09-20] MEDS: ATORVASTATIN 20 MG TABLET BY MOUTH (20:04)
[2021-09-20] MEDS: DOCUSATE SODIUM LIQ 100 MG/10 ML UDC PO (20:04)
[2021-09-20] MEDS: SERTRALINE HCL 50 MG TABLET 100 MG PO (20:04)
[2021-09-20 20:16] LABS: Glucose Point of Care 306 mg/dl (65-105)
[2021-09-20 21:16] LABS: Glucose Pleural Fluid 219 mg/dL; LDH Pleural Fluid 169 U/L
[2021-09-21] VITALS (14 sets, daily range): BP systolic 110–132; BP diastolic 60–77; PULSE 65–76; RESP 15–18; TEMP 36–36.6; O2SAT 91–100
[2021-09-21] MEDS: IPRATROPIUM BR 0.02% INH SOLN 0.5 MG/2.5 ML VIAL INHALATION ×3 (01:49→21:35)
[2021-09-21] MEDS: ALBUTEROL SULFATE NEB 2.5 MG/0.5 ML INH INHALATION ×3 (01:49→21:35)
[2021-09-21 07:27] LABS: Glucose Point of Care 256 mg/dl (65-105)
[2021-09-21] MEDS: FLUTICASONE/SALMETEROL 115-21 MCG INHALER 1 PUFF 2 PUFF INHALATION ×2 (07:49→21:35)
[2021-09-21] MEDS: INSULIN ASPART (*BKC) 100 UNITS/ML SUB-Q ×6 (08:13→17:00)
[2021-09-21] MEDS: APIXABAN 5 MG TABLET PO ×2 (08:20→20:36)
[2021-09-21] MEDS: MAGNESIUM OXIDE 400 MG TABLET PO (08:20)
[2021-09-21] MEDS: PANTOPRAZOLE 40 MG TABLET PO ×2 (08:20→16:59)
[2021-09-21] MEDS: GABAPENTIN 100 MG CAPSULE PO ×3 (08:20→16:59)
[2021-09-21] MEDS: cycloSPORINE 0.4 ML OPHTH SOLUTION 2 DROP EACH EYE ×2 (08:20→16:59)
[2021-09-21] MEDS: DIVALPROEX SODIUM SPRINKLE 125 MG CAP.DR 250 MG PO ×2 (08:20→20:37)
[2021-09-21] MEDS: AMIODARONE HCL 200 MG TABLET BY MOUTH ×2 (08:20→16:58)
[2021-09-21] MEDS: FUROSEMIDE 40 MG TABLET PO (08:20)
[2021-09-21] MEDS: DONEPEZIL HCL 10 MG TABLET BY MOUTH (08:20)
[2021-09-21] MEDS: DOCUSATE SODIUM LIQ 100 MG/10 ML UDC PO ×2 (08:21→20:37)
[2021-09-21 11:31] LABS: Glucose Point of Care 254 mg/dl (65-105)
--- NOTE | 2021-09-21 12:57 | PM.IMPN ---
Progress Note: A&P Assessment and Plan (1) Pleural effusion: Code(s): J90 - Pleural effusion, not elsewhere classified Status: Acute Assessment and Plan: 09/20: Large left-sided exudative pleural effusion status post thoracentesis with cytology suggesting parapneumonic effusion as opposed to empyema, awaiting bed at [facility] for pigtail catheter placement and/or VATS procedure, currently being treated with Zosyn 09/21: rocephin + azithro September 04-, switched to doxycycline September 08- in the morning, then zosyn started September 17 evening, today is day 5 of zosyn, total antibiotic day 18, still awaiting transfer (2) Acute pericardial effusion: Code(s): I30.9 - Acute pericarditis, unspecified Status: Acute Assessment and Plan: Pericardial effusion as revealed in CT chest large volume pericardial effusion.? Echocardiogram 09/04/2021 with ejection fraction 50-55% small to moderate-sized pericardial effusion present.? Pericardial effusion is complex with fibrin appearing material as well as soft tissue thickening/density noted? Patient was seen by Cardiology and patient does not need further workup (3) Elevated brain natriuretic peptide (BNP) level: Code(s): R79.89 - Other specified abnormal findings of blood chemistry Status: Acute Assessment and Plan: Echo suggests diastolic dysfunction Continue low-dose of diuretic Cardiology following (4) Acute hypokalemia: Code(s): E87.6 - Hypokalemia Status: Acute Assessment and Plan: Will monitor and supplement (5) Leukocytosis: Code(s): D72.829 - Elevated white blood cell count, unspecified Status: Acute Assessment and Plan: Most likely secondary to pneumonia (6) Constipation: Code(s): K59.00 - Constipation, unspecified Status: Acute (7) Hypertension: Code(s): I10 - Essential (primary) hypertension Status: Acute (8) Dementia: Code(s): F03.90 - Unspecified dementia without behavioral disturbance Status: Acute (9) Diabetes mellitus type 2 in obese: Code(s): E11.69 - Type 2 diabetes mellitus with other specified complication; E66.9 - Obesity, unspecified Status: Acute (10) Atrial fibrillation: Code(s): I48.91 - Unspecified atrial fibrillation Status: Acute (11) Chronic respiratory failure with hypoxia, on home O2 therapy: Code(s): J96.11 - Chronic respiratory failure with hypoxia; Z99.81 - Dependence on supplemental oxygen Status: Acute Plan Comorbidities: 1. Hypertension 2. History of breast cancer in the past 3. Chronic normocytic anemia 4. Dementia with agitation 09/10/2021, given Zyprexa x1 5. Afib on amiodarone, controlled DVT prophylaxis on Eliquis Code status do not resuscitate Type 2 diabetes on insulin at home 55 units of Lantus and 8 units 3 times a day.? Restart lower dose Lantus and lispro prandial.? Adjust as needed longterm resident Subjective Date/time seen: 09/21/21 12:57 Interval history: 09/20: Stable, no complaints. Awaiting bed at tertiary care facility for higher level of care.? No overnight events noted.? No chest pain or shortness of breath.? No nausea, vomiting or diarrhea.? No fevers or chills. 09/21: sleeping, easily arousable, no complaints. No o/n events, no NVD. No CP/SOB Review of Systems Review of Systems: All systems reviewed & are unremarkable except as noted in HPI and below Exam Narrative: ?General:??No acute distress, alert and oriented per baseline HEENT:? Atraumatic, normocephalic, mucous membranes moist CV:? Regular rate and rhythm, S1, S2 Lungs:? ? Scattered crackles, diminished at bases Abdomen:? Soft, nontender, nondistended Extremities:? Normal to inspection Skin:? No rashes noted, no lesions or wounds seen Psych:? Euthymic, normal affect Objective Data Vital Signs Vital Signs: Vital Signs - 24 hr 09/20/21 14:42 09/20/21
--- NOTE | 2021-09-21 15:00 | PCNFU ---
Elliot Willard Nutrition Follow-Up Complete: Inadequate oral intake related to diet order as evidenced by NPO diet. Goal: Adequate intake of at least 75% of meals. - Pt is progressing towards goal (70% intake), continue current goal. Pt current nutrition is Minced and moist level 5, DBCC fluid restriction. Last recorded weight is 79.9 kg, a 3kg reduction from 09/11 wt. Bowel Motility: Last BM recorded on 09/17. Labs Reviewed: No new labs Meds Noted: Novolog, Miralax, Protonix, Zofran, Lantus Skin: WNL Additional Notes: Pt is currently on a minced and moist level 5 DBCC fluid restricted diet of 1600ml eating about 70% of hear meals. Pt states she has a good appetite depending on what food is being offered. Pt has requested snacks to be brought up to her which include: Applesauce, pudding, and bananas. Monitor labs, weight, and intake and follow up in 5 days.
--- NOTE | 2021-09-21 15:14 | PCNSR ---
On 09/21/21, the student,Roro Nunez, provided care and completed [facility] documentation on this patient. I have reviewed the student's documentation and agree with the findings.
[2021-09-21 16:49] LABS: Glucose Point of Care 225 mg/dl (65-105)
[2021-09-21] MEDS: OLANZapine 2.5 MG TABLET PO (20:36)
[2021-09-21] MEDS: ATORVASTATIN 20 MG TABLET BY MOUTH (20:36)
[2021-09-21] MEDS: SERTRALINE HCL 50 MG TABLET 100 MG PO (20:36)
[2021-09-21] MEDS: AMITRIPTYLINE HCL 10 MG TABLET PO (20:38)
[2021-09-21] MEDS: INSULIN GLARGINE (*BKC) 100 UNITS/ML 20 UNITS SUB-Q (20:39)
[2021-09-21 20:53] LABS: Glucose Point of Care 238 mg/dl (65-105)
[2021-09-22] VITALS (12 sets, daily range): BP systolic 97–114; BP diastolic 55–61; PULSE 62–73; RESP 16–20; TEMP 35.7–36.4; O2SAT 91–97
[2021-09-22] MEDS: IPRATROPIUM BR 0.02% INH SOLN 0.5 MG/2.5 ML VIAL INHALATION ×3 (02:30→14:19)
[2021-09-22] MEDS: ALBUTEROL SULFATE NEB 2.5 MG/0.5 ML INH INHALATION ×3 (02:30→14:19)
[2021-09-22] MEDS: FLUTICASONE/SALMETEROL 115-21 MCG INHALER 1 PUFF 2 PUFF INHALATION (07:35)
[2021-09-22 08:13] LABS: Glucose Point of Care 184 mg/dl (65-105)
[2021-09-22] MEDS: INSULIN ASPART (*BKC) 100 UNITS/ML SUB-Q ×5 (09:36→16:47)
[2021-09-22] MEDS: PANTOPRAZOLE 40 MG TABLET PO ×2 (09:37→16:49)
[2021-09-22] MEDS: GABAPENTIN 100 MG CAPSULE PO ×3 (09:37→16:49)
[2021-09-22] MEDS: FUROSEMIDE 40 MG TABLET PO (09:37)
[2021-09-22] MEDS: MAGNESIUM OXIDE 400 MG TABLET PO (09:37)
[2021-09-22] MEDS: DOCUSATE SODIUM LIQ 100 MG/10 ML UDC PO ×2 (09:37→20:50)
[2021-09-22] MEDS: DIVALPROEX SODIUM SPRINKLE 125 MG CAP.DR 250 MG PO ×2 (09:37→20:50)
[2021-09-22] MEDS: APIXABAN 5 MG TABLET PO ×2 (09:37→20:50)
[2021-09-22] MEDS: AMIODARONE HCL 200 MG TABLET BY MOUTH ×2 (09:37→16:48)
[2021-09-22] MEDS: DONEPEZIL HCL 10 MG TABLET BY MOUTH (09:37)
[2021-09-22] MEDS: cycloSPORINE 0.4 ML OPHTH SOLUTION 2 DROP EACH EYE ×2 (09:38→16:48)
[2021-09-22 12:03] LABS: Glucose Point of Care 240 mg/dl (65-105)
--- NOTE | 2021-09-22 13:44 | PM.IMPN ---
Progress Note: A&P Assessment and Plan (1) Pleural effusion: Code(s): J90 - Pleural effusion, not elsewhere classified Status: Acute Assessment and Plan: 09/20: Large left-sided exudative pleural effusion status post thoracentesis with cytology suggesting parapneumonic effusion as opposed to empyema, awaiting bed at [facility] for pigtail catheter placement and/or VATS procedure, currently being treated with Zosyn 09/21: rocephin + azithro September 04-, switched to doxycycline September 08- in the morning, then zosyn started September 17 evening, today is day 5 of zosyn, total antibiotic day 18, still awaiting transfer 09/22: Still awaiting transfer, no change, will repeat imaging in a few days if patient still doesn't have a bed (2) Acute pericardial effusion: Code(s): I30.9 - Acute pericarditis, unspecified Status: Acute Assessment and Plan: Pericardial effusion as revealed in CT chest large volume pericardial effusion.? Echocardiogram 09/04/2021 with ejection fraction 50-55% small to moderate-sized pericardial effusion present.? Pericardial effusion is complex with fibrin appearing material as well as soft tissue thickening/density noted? Patient was seen by Cardiology and patient does not need further workup (3) Elevated brain natriuretic peptide (BNP) level: Code(s): R79.89 - Other specified abnormal findings of blood chemistry Status: Acute Assessment and Plan: Echo suggests diastolic dysfunction Continue low-dose of diuretic Cardiology following (4) Acute hypokalemia: Code(s): E87.6 - Hypokalemia Status: Acute Assessment and Plan: Will monitor and supplement (5) Leukocytosis: Code(s): D72.829 - Elevated white blood cell count, unspecified Status: Acute Assessment and Plan: Most likely secondary to pneumonia (6) Constipation: Code(s): K59.00 - Constipation, unspecified Status: Acute (7) Hypertension: Code(s): I10 - Essential (primary) hypertension Status: Acute (8) Dementia: Code(s): F03.90 - Unspecified dementia without behavioral disturbance Status: Acute (9) Diabetes mellitus type 2 in obese: Code(s): E11.69 - Type 2 diabetes mellitus with other specified complication; E66.9 - Obesity, unspecified Status: Acute (10) Atrial fibrillation: Code(s): I48.91 - Unspecified atrial fibrillation Status: Acute (11) Chronic respiratory failure with hypoxia, on home O2 therapy: Code(s): J96.11 - Chronic respiratory failure with hypoxia; Z99.81 - Dependence on supplemental oxygen Status: Acute Plan Comorbidities: 1. Hypertension 2. History of breast cancer in the past 3. Chronic normocytic anemia 4. Dementia with agitation 09/10/2021, given Zyprexa x1 5. Afib on amiodarone, controlled DVT prophylaxis on Eliquis Code status do not resuscitate Type 2 diabetes on insulin at home 55 units of Lantus and 8 units 3 times a day.? Restart lower dose Lantus and lispro prandial.? Adjust as needed long-term resident Subjective Date/time seen: 09/22/21 13:44 Interval history: 09/20: Stable, no complaints. Awaiting bed at tertiary care facility for higher level of care.? No overnight events noted.? No chest pain or shortness of breath.? No nausea, vomiting or diarrhea.? No fevers or chills. 09/21: Sleeping, easily arousable, no complaints. No o/n events, no NVD. No CP/SOB 09/22: ?No overnight events noted.? No chest pain or shortness of breath.? No nausea, vomiting or diarrhea.? No fevers or chills. Review of Systems Review of Systems: All systems reviewed & are unremarkable except as noted in HPI and below Exam Narrative: ?General:??No acute distress, alert and oriented per baseline HEENT:? Atraumatic, normocephalic, mucous membranes moist CV:? Regular rate and rhythm, S1, S2 Lungs:? ? Scattered crackles, diminished at bases Abdomen:? S
[2021-09-22 16:50] LABS: Glucose Point of Care 235 mg/dl (65-105)
[2021-09-22] MEDS: SERTRALINE HCL 50 MG TABLET 100 MG PO (20:50)
[2021-09-22] MEDS: OLANZapine 2.5 MG TABLET PO (20:50)
[2021-09-22] MEDS: AMITRIPTYLINE HCL 10 MG TABLET PO (20:50)
[2021-09-22] MEDS: ATORVASTATIN 20 MG TABLET BY MOUTH (20:50)
[2021-09-22] MEDS: INSULIN GLARGINE (*BKC) 100 UNITS/ML 20 UNITS SUB-Q (20:52)
[2021-09-22 21:48] LABS: Glucose Point of Care 205 mg/dl (65-105)
[2021-09-26 09:02] LABS: Glucose Point of Care 144 mg/dl (65-105)
[2021-09-26 09:02] LABS: Glucose Point of Care 263 mg/dl (65-105)
--- NOTE | 2021-09-26 16:44 | PM.TDS ---
Transfer Discharge Sum: Prov Provider Date of admission: 09/04/21 08:25 Primary care physician: Autumn Araujo, Admitting clinician: Mayank Srivastava MD Consults: 09/04/21 08:28 Consult to Physician Routine Comment: Consulting Provider: Adarsh Cee Reason for consultation: pericardial effusion Has provider been notified: Yes 09/05/21 07:19 Consult to Physician Routine Comment: spoke with Dr. Villalobos @[phone](,) Consulting Provider: Yolanda Villalobos call center director/MD group to consult: Pulmonology Reason for consultation: Large left pleural effusion Has provider been notified: Yes DS: Admitting Diagnosis Discharge Date 09/23/21 Admitting Diagnosis Shortness of breath DS: Discharge Diagnosis Discharge Diagnosis (1) Pleural effusion: Code(s): J90 - Pleural effusion, not elsewhere classified Status: Acute Assessment and Plan: 09/20: Large left-sided exudative pleural effusion status post thoracentesis with cytology suggesting parapneumonic effusion as opposed to empyema, awaiting bed at [facility] for pigtail catheter placement and/or VATS procedure, currently being treated with Zosyn 09/21: rocephin + azithro September 04-, switched to doxycycline September 08- in the morning, then zosyn started September 17 evening, today is day 5 of zosyn, total antibiotic day 18, still awaiting transfer 09/22: Still awaiting transfer, no change, will repeat imaging in a few days if patient still doesn't have a bed (2) Acute pericardial effusion: Code(s): I30.9 - Acute pericarditis, unspecified Status: Acute Assessment and Plan: Pericardial effusion as revealed in CT chest large volume pericardial effusion.? Echocardiogram 09/04/2021 with ejection fraction 50-55% small to moderate-sized pericardial effusion present.? Pericardial effusion is complex with fibrin appearing material as well as soft tissue thickening/density noted? Patient was seen by Cardiology and patient does not need further workup (3) Elevated brain natriuretic peptide (BNP) level: Code(s): R79.89 - Other specified abnormal findings of blood chemistry Status: Acute Assessment and Plan: Echo suggests diastolic dysfunction Continue low-dose of diuretic Cardiology following (4) Acute hypokalemia: Code(s): E87.6 - Hypokalemia Status: Acute Assessment and Plan: Will monitor and supplement (5) Leukocytosis: Code(s): D72.829 - Elevated white blood cell count, unspecified Status: Acute Assessment and Plan: Most likely secondary to pneumonia (6) Constipation: Code(s): K59.00 - Constipation, unspecified Status: Acute (7) Hypertension: Code(s): I10 - Essential (primary) hypertension Status: Acute (8) Dementia: Code(s): F03.90 - Unspecified dementia without behavioral disturbance Status: Acute (9) Diabetes mellitus type 2 in obese: Code(s): E11.69 - Type 2 diabetes mellitus with other specified complication; E66.9 - Obesity, unspecified Status: Acute (10) Atrial fibrillation: Code(s): I48.91 - Unspecified atrial fibrillation Status: Acute (11) Chronic respiratory failure with hypoxia, on home O2 therapy: Code(s): J96.11 - Chronic respiratory failure with hypoxia; Z99.81 - Dependence on supplemental oxygen Status: Acute Plan Comorbidities: 1. Hypertension 2. History of breast cancer in the past 3. Chronic normocytic anemia 4. Dementia with agitation 09/10/2021, given Zyprexa x1 5. Afib on amiodarone, controlled DVT prophylaxis on Eliquis Code status do not resuscitate Type 2 diabetes on insulin at home 55 units of Lantus and 8 units 3 times a day.? Restart lower dose Lantus and lispro prandial.? Adjust as needed [facility] resident Transfer Discharge Sum: Med Medications Active and Home Medications: Home Medications amiodarone 200 m
== END 2021-09-23 00:25 | DRG 186 ==
LOC: ANHED 08:31 → ANHICU 09:37 → ANH3MEDSUR 09-07 18:26
PROVIDERS: Emergency Medicine; Family Medicine; Internal Medicine; Internal Medicine Critical Care Medicine; Nurse Practitioner Family; Student in an Organized Health Care Education/Training Program; Admitting Provider Internal Medicine; Emergency Provider Emergency Medicine; PCP Internal Medicine; Visit Provider Student in an Organized Health Care Education/Training Program
DX: J90 Pleural effusion, not elsewhere classified (principal); J18.9 Pneumonia, unspecified organism; J44.0 Chronic obstructive pulmonary disease with (acute) lower respiratory infection; I30.9 Acute pericarditis, unspecified; J96.11 Chronic respiratory failure with hypoxia; E87.1 Hypo-osmolality and hyponatremia; Z20.822 Contact with and (suspected) exposure to COVID-19; E87.6 Hypokalemia; D72.829 Elevated white blood cell count, unspecified; K59.00 Constipation, unspecified; I10 Essential (primary) hypertension; F03.90 Unspecified dementia, unspecified severity, without behavioral disturbance, psychotic disturbance, mood disturbance, and anxiety; D64.9 Anemia, unspecified; R82.90 Unspecified abnormal findings in urine; E11.9 Type 2 diabetes mellitus without complications; I48.91 Unspecified atrial fibrillation; Z66 Do not resuscitate; R45.1 Restlessness and agitation; E66.9 Obesity, unspecified; Z68.35 Body mass index [BMI] 35.0-35.9, adult; Z99.81 Dependence on supplemental oxygen; Z85.3 Personal history of malignant neoplasm of breast; Z79.01 Long term (current) use of anticoagulants
CPT/HCPCS: 32555; 36415; 36600; 71045; 71046; 71250; 80048; 80053; 81001; 82040; 82042; 82150; 82247; 82465; 82805; 82945; 82947; 82948; 83615; 83735; 83880; 83986; 84100; 84132; 84145; 84155; 84157; 84311; 84478; 85025; 85027; 85610; 85730; 86038; 87015; 87070; 87075; 87086; 87102; 87116; 87205; 87206; 88104; 88108; 88184; 88305; 89051; 93005; 93306; 94640; 96365; 96375; 97162; 97165; 99285; A9270; C9803; J0456; J0696; J1120; J1815; J1940; J2270; J2405; J2543; J3475; J3480; U0003; U0005

== ENCOUNTER 2021-10-03 13:07 | Outpatient (RCR) | payer MEDICARE, MEDICAID, SELFPAY | END 2021-10-03 23:59 | disposition home or self-care (01) | LOC: ANHAUDIO 13:07 | PROVIDERS: PCP Internal Medicine; Referring Provider Internal Medicine; Visit Provider Internal Medicine | DX: Z46.1 Encounter for fitting and adjustment of hearing aid (principal) | CPT/HCPCS: 99199 ==

== ENCOUNTER 2022-09-23 14:45 | Inpatient (IN) | payer MEDICARE, MEDICAID, SELFPAY ==
[2022-09-23] VITALS (30 sets, daily range): BP systolic 57–148; BP diastolic 37–87; PULSE 83–115; RESP 14–26; TEMP 37.1–37.2; O2SAT 94–99; BMI 33.2
--- NOTE | ~2022-09-23 | XR_ITS ---
XR chest 1V portable 09/23/2022 22:14 Indication: Left-sided IJ central line. Procedure: AP portable chest Comparison: Comparison to multiple prior studies sequentially, with oldest reviewed study dated 08/2021. Findings: Cardiomegaly. Mild interstitial edema. Possible small left effusion. No pneumothorax. Left IJ central line tip in the brachiocephalic vein. No pneumothorax. No acute osseous abnormality. Impression: 1: Cardiomegaly with mild interstitial edema. Reviewed, dictated and finalized at location A. Impression: 1: Cardiomegaly with mild interstitial edema.
--- NOTE | ~2022-09-23 | CT_ITS ---
EXAMINATION: CTA chest abdomen pelvis DATE: 09/23/2022 17:14 INDICATION: Abdominal distention, pain TECHNIQUE: Computed tomography (CT) of the chest, abdomen and pelvis was performed with 100 CC Omnipa que 350 intravenous contrast. Automated exposure control and iterative reconstruction technique were employed. Exam dose: 1726.43 mGy-cm total exam DLP. Abdomen COMPARISON: 09/04/2021 CT chest FINDINGS: There is no evidence of pulmonary embolism. There is no evidence of thoracic or abdominal aortic aneurysm or dissection. No hilar or mediastinal mass lesion or lymphadenopathy. Cardiomegaly. No pericardial or pleural effusion. Status post left mastectomy. There is mild discoid atelectasis or scarring in the dependent left lower lobe. No pulmonary consolid ation. The gallbladder is not visualized and is likely surgically removed. No bile duct or pancreatic duct d ilatation. No hepatic, pancreatic, splenic, adrenal space-occupying mass lesion is evident. No intraperitoneal or retroperitoneal or pelvic mass lesion or adenopathy or ascites. 2.3 cm exophytic left renal cyst. The urinary bladder is unremarkable. There is a prominent amount of fecal material in the rectosigmoi d area with evidence of swelling. There is prominent gaseous distention of the sigmoid, descending an d transverse colon. No bowel obstruction or intraperitoneal free air is detected. There are some small left ventral abdominal wall fat-containing hernias. Severe bilateral glenohumera l osteoarthritis. Degenerative changes of the cervical, thoracic and and especially the lumbar spine; degenerative gabriel ge of both hips. IMPRESSION: Prominent fecal material in the rectum and colon consistent with constipation No bowel obstruction or intraperitoneal free air is detected otherwise Cardiomegaly Status post left mastectomy 2.3 cm left exophytic renal cyst Small left ventral abdominal wall fat-containing hernias Reviewed, dictated and finalized at [facility]. Reviewed, dictated and finalized at location A. IMPRESSION: Prominent fecal material in the rectum and colon consistent with c onstipation No bowel obstruction or intraperitoneal free air is detected otherwise Cardiomegaly Status post left mastectomy 2.3 cm left exophytic renal cyst Small left ventral abdominal wall fat-containing hernias
--- NOTE | ~2022-09-23 | XR_ITS ---
XR abdomen obstructive series DATE: 09/25/2022 08:31 INDICATION: Abdominal tenderness TECHNIQUE: Portable AP supine and upright views COMPARISON: 09/23/2022 CTA chest abdomen pelvis FINDINGS: There is improvement of the prominent amount of fecal material in the rectal area but still a prominent amount of fecal material and gas in the colon. There are some gas-distended small bowel segments. No intraperitoneal free air is detected. No visceromegaly or significant abnormal calcification is identified. There is levoscoliosis and multilevel degenerative disc disease of the lumbar spine and degenerative spurring of the lower thoracic spine. IMPRESSION: Improvement of prominent amount of fecal material in the rectal and sigmoid area since ; prominent amount of fecal material and gas remain in the colon Reviewed, dictated and finalized at [facility]. Reviewed, dictated and finalized at location L. IMPRESSION: Improvement of prominent amount of fecal material in the rectal and sigmoid area since 09/23/2022; prominent amount of fecal material and gas remai n in the colon
--- NOTE | 2022-09-23 15:01 | ED.GENADULT ---
HPI - General Adult General Chief complaint: Abdominal Pain Stated complaint: constipated History of Present Illness HPI narrative: 72F h/o dementia, [facility] resident brought in for no BM. Per EMS, [facility] staff noted that patient has not had BM for days, so called EMS to bring patient to ED. Per [facility] staff, current mental status is at her baseline, non verbal. ROS limited due to condition Related Data Home Medications Medication Instructions Recorded Confirmed amiodarone 200 mg tablet 1 tablet BID 09/04/21 09/04/21 amitriptyline 10 mg tablet 1 tablet HS 09/04/21 09/04/21 apixaban 5 mg tablet (Eliquis) 1 tablet BID 09/04/21 09/04/21 atorvastatin 20 mg tablet 1 tablet HS 09/04/21 09/04/21 budesonide-formoterol HFA 160 2 inh inhalation BID 09/04/21 09/04/21 mcg-4.5 mcg/actuation aerosol inhaler cyclosporine 0.05 % eye drops in a 2 drp EACH EYE BID 09/04/21 09/04/21 dropperette (Restasis) divalproex 125 mg capsule,delayed 2 cap PO BID 09/04/21 09/04/21 release sprinkle donepezil 10 mg tablet 1 tablet DAILY 09/04/21 09/04/21 furosemide 40 mg tablet 1 tablet DAILY 09/04/21 09/04/21 gabapentin 100 mg capsule 1 cap TID 09/04/21 09/04/21 insulin glargine 100 unit/mL (3 55 ea subcut DAILY 09/04/21 09/04/21 mL) subcutaneous pen (Lantus Solostar U-100 Insulin) insulin lispro 100 unit/mL 8 ea subcut TIDWM 09/04/21 09/04/21 subcutaneous pen (Humalog KwikPen (U-100) Insulin) ipratropium 0.5 mg-albuterol 3 mg 3 ml inhalation Q6H 09/04/21 09/04/21 (2.5 mg base)/3 mL nebulization soln ketoconazole 2 % topical cream 1 applic topical BID 09/04/21 09/04/21 metoprolol tartrate 25 mg tablet 1 tablet BID 09/04/21 09/04/21 olanzapine 2.5 mg tablet 1 tablet HS 09/04/21 09/04/21 pantoprazole 40 mg tablet,delayed 1 tablet PO BID 09/04/21 09/04/21 release sertraline 100 mg tablet 1 tablet HS 09/04/21 09/04/21 Allergies Allergy/AdvReac Type Severity Reaction Status Date / Time castor oil Allergy Unknown Verified 09/23/22 14:56 chlorpromazine Allergy Unknown Verified 09/23/22 14:56 [From Thorazine] codeine Allergy Unknown Verified 09/23/22 14:56 phenobarbital Allergy Unknown Verified 09/23/22 14:56 propoxyphene Allergy Unknown Verified 09/23/22 14:56 thioridazine [From Mellaril] Allergy Unknown Verified 09/23/22 14:56 Review of Systems Review of Systems: See [facility] Past Medical History Medical History Asthma-COPD overlap syndrome Atrial fibrillation Chronic respiratory failure with hypoxia, on home O2 therapy Dementia Diabetes mellitus type 2 in obese Hypertension Surgical History Surgical History History of mastectomy Social History Social History Smoking status: Unknown if ever smoked Spiritual care concerns: No Exam Narrative: General: Alert, calm and cooperative, no acute distress, phonating, sitting comfortably during visit, mumbling HEENT: Pupils equal round and reactive to light, extra ocular movements intact, no conjunctival injection, head atraumatic, neck supple without meningismus Cardiovascular: Regular rate and rhythm, no visible jugular venous distension Respiratory: Lungs clear to auscultation bilaterally, no wheezing/rales/rhonchi Abdominal: soft, LLQ tenderness to palpation, distended vs elevated BMI, no guarding, no rebound/peritoneal signs, no costovertebral tenderness to palpation Back: no midline tenderness to palpation, no step offs Extremities: No edema, palpable peripheral pulses, warm, well perfused, no tenderness to bilateral calves Neurological: Alert, mumbling, moving all extremities symmetrically Course Reevaluation(s) Reevaluation #1: Lactate 8, ishcemic bowel consider, zosyn given, CTA abd/pelv ordered. Reevaluation #2: CT abd/pelv without mesenteric ischemia or evidence
[2022-09-23 15:59] LABS: Basophils Absolute Auto 0.1 K/mm3 (0.0-0.1); Basophils Percent Auto 0.7 % (0.2-1.2); Eosinophils Percent Auto 0.2 % (0-4.4); Hemoglobin 14.5 g/dL (12.0-15.0); Immature Granulocyte Absolute 0.19 K/mm3 (0.00-0.031); Immature Granulocyte Percent A 1.1 % (0-0.5); Lymphocytes Absolute Auto 1.72 K/mm3 (0.9-3.2); Lymphocytes Percent Auto 10.2 % (18.3-44.2); Mean Corpuscular HGB Conc 31.5 g/dl (32-36); Mean Corpuscular Hemoglobin 32.1 pg (26-34); Mean Corpuscular Volume 101.8 fl (80-100); Mean Platelet Volume 10.8 fl (7.4-10.4); Monocytes Absolute Auto 1.2 K/mm3 (0.1-0.6); Monocytes Percent Auto 6.9 % (2.6-8.5); Neutrophils Absolute Auto 13.6 K/mm3 (1.3-6.7); Neutrophils Percent Auto 80.9 % (45.5-73.1); Platelet Count Result 200 k/mm3 (150-375); Red Blood Count 4.52 M/mm3 (4.2-5.4); Red Cell Distribution Width 13.8 % (11.5-14.5); White Blood Count 16.9 K/mm3 (4.5-10.0)
[2022-09-23 16:07] LABS: Lactic Acid Reflex 8.8 mmol/L (0.7-2.0)
[2022-09-23] MEDS: SODIUM CHLORIDE 0.9% IV 1,000 ML 999 ML IV CONT ×2 (16:15→18:24)
[2022-09-23] MEDS: PIPERACILLN/TAZ 3.375GM/NS50ML 3.375 GM/50 ML BAG IVPB (16:50)
[2022-09-23 17:01] LABS: Estimated CRCL calculation 27 ml/min; Estimated Glomerular Filt Rate 37
[2022-09-23 17:45] LABS: Albumin Level 2.5 g/dL (3.5-5.1); Alkaline Phosphatase 59 U/L (38-126); Anion Gap 20 mmol/L (8-16); Aspartate Amino Transferase 30 U/L (14-36); Bilirubin Direct 0.2 mg/dL (0-0.3); Bilirubin,Total 1.7 mg/dL (0.2-1.3); Blood Urea Nitrogen 26 mg/dL (7-17); Calcium 8.3 mg/dL (8.4-10.2); Carbon Dioxide 17 mmol/L (22-30); Chloride 98 mmol/L (98-107); Estimated CRCL calculation 29 ml/min; Estimated Glomerular Filt Rate 40; Glucose 214 mg/dL (65-110); Lipase 53 U/L (23-300); Potassium 4.5 mmol/L (3.4-5.0); Sodium 135 mmol/L (137-145)
[2022-09-23 17:55] LABS: Alanine Aminotransferase 34 U/L (6-35)
[2022-09-23 18:49] LABS: Reflex Lactic Acid Yes or No Add Lactic
--- NOTE | 2022-09-23 19:17 | PC.NURSE ---
Patient report given to ANDREA Leiva. All questions answered and care of patient transferred.
--- NOTE | 2022-09-23 19:51 | PC.NURSE ---
Spoke with an RN at [place] and gave update on pt.
[2022-09-23 20:37] LABS: Lactic Acid Reflex 8.5 mmol/L (0.7-2.0)
[2022-09-23 21:37] LABS: Appearance Urine Clear (Clear); Bacteria Urine 4+ /hpf; Bilirubin Urine Negative (Negative); Blood Urine Negative (Negative); Color Urine Yellow (Yellow); Glucose Urine UA Negative (Negative); Ketones Urine Negative (Negative); Leukocyte Esterase Ur 2+ LEU/UL (Negative); Nitrate Urine Negative (Negative); Non Pathogenic Casts 0-2; Protein Urine Negative (Negative); RBC Urine 0-2 /hpf (0-2); Squamous Epithelial Cell Urine None seen /hpf (Few); pH Urine 6.5 (5.0-9.0)
[2022-09-23] MEDS: LACTATED RINGERS 1,000 ML 999 ML IV CONT (21:45)
[2022-09-23 22:04] LABS: Add Urine Microscopic? YES
[2022-09-23] MEDS: NOREPINEPHRINE 8 MG/D5W 250 ML 8 MG/250 ML BAG 9.38 MG IV CONT (22:36)
[2022-09-23 22:54] LABS: INR 1.8; Prothrombin Time 21.8 Seconds (11.1-14.7)
[2022-09-23 22:55] LABS: Partial Thromboplastin Time 33.4 SECONDS (22.3-36.8)
--- NOTE | 2022-09-23 23:04 | ADMGEN ---
This patient, Montse Zarate, was admitted to Intensive Care Unit-6. Patient/family oriented to hospital policies and general routines including ID bracelet, bed and alarms, visiting hours, pain management, procedures, bathroom and other care routines, personal items, smoking policy, room service/diet, and visiting hours. Information on how to activate the Rapid Response Team has been discussed. Patient/Family are encouraged to report perceived risks to care and to ask questions if they do not understand what they are told or what they should do.
[2022-09-23 23:31] LABS: Lactic Acid 9.1 mmol/L (0.7-2.0)
[2022-09-23] MEDS: SODIUM BICARBONATE 8.4% 50 MEQ/50 ML SYRINGE 100 MEQ IV PUSH (23:43)
--- NOTE | 2022-09-23 23:56 | PM.IMHP ---
H&P: HPI History of Present Illness Date/Time: 09/23/22 23:56 Chief Complaint: Constipation Narrative: 72-year-old female with a past medical history of dementia, AFib, hypertension, COPD, and type 2 diabetes who presented to the ER from [facility] via EMS due to constipation. [facility] to [facility] jail staff the patient had not had a bowel movement for 4 days. The patient is reportedly at her baseline. She has intermittently moaning and screaming out but cannot communicate in any meaningful way verbally. Patient is not able to provide any information and review of systems. In the ER the patient was noted to have significant hypotension with systolic blood pressures as low as the 70s. She was mottled in appearance and her skin was cold to touch. Her abdomen was distended and tender. A CTA of the chest abdomen pelvis was performed which demonstrated prominent fecal material in the rectum and colon consistent with constipation. In order was given in the ER for a Fleet's enema. The nursing staff stated that for the even the enema completely administered the patient had a massive bowel movement. Since the patient has had that bowel movement the patient has been passing numerous watery stools. Patient has had an additional incontinent stools since she arrived to the ICU. The patient's lactic acid came back at 8.8. However CT scan did not demonstrate any obvious mesenteric ischemia. In the ER the patient received 2 L normal saline bolus initially. She remained hypotensive in the 3 L was ordered the ER provider placed at the left IJ. patient was started on Levophed and transferred to the ICU. The patient is on a pureed diet at the jail. Patient is chronically incontinent of urine. She did not have a Palafox catheter when she arrived to the ER. After placement of a temperature probe Palafox patient did spike a temperature to 100.1. Review of Systems Review of Systems: ROS unobtainable: Yes unobtainable due to medical condition (Dementia) [facility] Past Medical History Medical History (Updated 09/24/22 @ 03:36 by Susan Shane DO) Asthma-COPD overlap syndrome Atrial fibrillation Chronic respiratory failure with hypoxia, on home O2 therapy Dementia Diabetes mellitus type 2 in obese Dysphagia On a pureed diet at the jail Hypertension Surgical History Surgical History (Updated 09/24/22 @ 03:05 by Susan Shane DO) History of bilateral knee replacement History of left mastectomy Family History Family History Other Unknown family medical history Social History Social History (Updated 09/24/22 @ 03:06 by Susan Shane DO) Social History: Code status: DNR/DNI per jail orders. Smoking status: Unknown if ever smoked Alcohol intake: unknown Substance use: unknown Spiritual care concerns: No Meds Home Medications and Allergies Home Medications Medication Instructions Recorded Confirmed Type apixaban 5 mg tablet (Eliquis) 5 mg PO BID 09/04/21 09/23/22 History atorvastatin 20 mg tablet 20 mg PO HS 09/04/21 09/23/22 History budesonide-formoterol HFA 160 2 inh inhalation BID 09/04/21 09/23/22 History mcg-4.5 mcg/actuation aerosol inhaler cyclosporine 0.05 % eye drops in a 2 drp EACH EYE BID 09/04/21 09/23/22 History dropperette (Restasis) divalproex 125 mg capsule,delayed 500 mg PO TID 09/04/21 09/23/22 History release sprinkle furosemide 40 mg tablet 40 mg PO DAILY 09/04/21 09/23/22 History gabapentin 100 mg capsule 1 cap PO TID 09/04/21 09/23/22 History insulin glargine 100 unit/mL (3 40 ea subcut DAILY 09/04/21 09/23/22 History mL) subcutaneous pen (Lantus Solostar U-100 Insulin) insulin lispro 100 unit/mL 18 ea subcut TIDWM 09/04/21 09/23/22 History subcutaneous pen (Humalog KwikPen (U-100) Insulin) ipratropium 0.5 mg-albuterol 3 mg 3 ml inhalation Q6H PRN
[2022-09-24] VITALS (54 sets, daily range): BP systolic 87–148; BP diastolic 49–103; PULSE 91–106; RESP 12–23; TEMP 36.4–38.3; O2SAT 93–100; BMI 30.9
[2022-09-24] MEDS: SODIUM BICARBONATE 8.4% 100 MEQ in WATER, STERILE FOR INJECTION 1,000 ML IV CONT ×3 (00:03→23:40)
--- NOTE | 2022-09-24 02:10 | ECG_ITS ---
Measurements Intervals [place] Rate: 98 P: 44 IN: 170 QRS: -23 QRSD: 83 T: 75 QT: 275 QTc: 351 Interpretive Statements SINUS RHYTHM LOW QRS VOLTAGE IN PRECORDIAL LEADS POOR R WAVE PROGRESSION, CONISDER ANTEROLATERAL INFARCT INFERIOR INFARCT, AGE INDETERMINATE BORDERLINE ST-T WAVE ABNORMALITY- HIGH LATERAL LEADS BASELINE ARTIFACT- I, II, III, AVR, AVL, AVF, V1-V2, V6 ABNORMAL ECG COMPARED TO ECG 09/04/2021 07:47:21 MYOCARDIAL INFARCT FINDING NOW PRESENT Electronically Signed On 09-24-2022 6:50:52 CDT by Cortes Miranda D.O.
[2022-09-24 03:39] LABS: Basophils Absolute Auto 0.1 K/mm3 (0.0-0.1); Basophils Percent Auto 0.8 % (0.2-1.2); Eosinophils Absolute Auto 0.4 K/mm3 (0-0.3); Eosinophils Percent Auto 2.7 % (0-4.4); Hematocrit 41.7 % (37.0-47.0); Hemoglobin 13.5 g/dL (12.0-15.0); Immature Granulocyte Percent A 0.7 % (0-0.5); Lymphocytes Absolute Auto 0.63 K/mm3 (0.9-3.2); Lymphocytes Percent Auto 4.3 % (18.3-44.2); Mean Corpuscular HGB Conc 32.4 g/dl (32-36); Mean Corpuscular Hemoglobin 32.5 pg (26-34); Mean Corpuscular Volume 100.2 fl (80-100); Mean Platelet Volume 10.3 fl (7.4-10.4); Monocytes Absolute Auto 1.1 K/mm3 (0.1-0.6); Monocytes Percent Auto 7.3 % (2.6-8.5); Neutrophils Absolute Auto 12.3 K/mm3 (1.3-6.7); Neutrophils Percent Auto 84.2 % (45.5-73.1); Platelet Count Result 144 k/mm3 (150-375); Red Blood Count 4.16 M/mm3 (4.2-5.4); White Blood Count 14.6 K/mm3 (4.5-10.0)
[2022-09-24 03:59] LABS: Hemoglobin A1C 6.5 % (<5.7)
[2022-09-24 04:00] LABS: Albumin Level 2.7 g/dL (3.5-5.1); Alkaline Phosphatase 49 U/L (38-126); Anion Gap 18 mmol/L (8-16); Aspartate Amino Transferase 35 U/L (14-36); Bilirubin,Total 1.2 mg/dL (0.2-1.3); Blood Urea Nitrogen 28 mg/dL (7-17); Calcium 8.2 mg/dL (8.4-10.2); Carbon Dioxide 21 mmol/L (22-30); Chloride 96 mmol/L (98-107); Estimated CRCL calculation 35 ml/min; Estimated Glomerular Filt Rate 44; Glucose 292 mg/dL (65-110); Lactic Acid Reflex 9.4 mmol/L (0.7-2.0); Potassium 3.4 mmol/L (3.4-5.0); Sodium 135 mmol/L (137-145)
[2022-09-24] MEDS: PIPERACILLN/TAZ 3.375GM/NS50ML 3.375 GM/50 ML BAG IVPB (04:16)
[2022-09-24 04:22] LABS: Alanine Aminotransferase 36 U/L (6-35)
[2022-09-24 05:06] LABS: Magnesium 2.1 mg/dL (1.6-2.3)
[2022-09-24] MEDS: KCL 40 MEQ/WATER 100 ML 100 ML 25 ML IVPB (05:12)
[2022-09-24 05:24] LABS: Toxigenic C. Diff NEGATIVE (NEGATIVE)
[2022-09-24] MEDS: INSULIN ASPART (*BKC) 100 UNITS/ML SUB-Q ×2 (05:24→12:53)
[2022-09-24 05:29] LABS: Glucose Point of Care 283 mg/dl (65-105)
--- NOTE | 2022-09-24 06:20 | PC.NURSE ---
Left message with Itzel Blake who is listed as contact for this patient asking for return phone call to update on patient condition.
[2022-09-24] MEDS: FLUTICASONE/SALMETEROL 115-21 MCG INHALER 1 PUFF 2 PUFF INHALATION ×2 (07:37→19:23)
[2022-09-24] MEDS: PANTOPRAZOLE SODIUM IV 40 MG VIAL IV PUSH (08:06)
[2022-09-24] MEDS: hetaSTARCH 6%/NACL 500 ML 250 ML IV CONT ×2 (08:06→15:17)
[2022-09-24] MEDS: cycloSPORINE 0.4 ML OPHTH SOLUTION 1 DROP EACH EYE ×2 (08:21→17:21)
--- NOTE | 2022-09-24 08:25 | WPDCNINT ---
Assessment and Plan Assessment and plan (1) Septic shock: Code(s): A41.9 - Sepsis, unspecified organism; R65.21 - Severe sepsis with septic shock Status: Acute Assessment and Plan: Patient presented with fecal impaction, constipation x4 days, was found to be hypotensive in the ER with systolic blood pressures in the 70s -status post 3 L IV fluid bolus and was started on maintenance IV fluids -remained hypotensive, central line was inserted and started on Levophed -will maintain MAP > 70 mmHg for adequate end organ perfusion -it lactic acid was 9.4 at admission and down to 7.7 -will continue with maintenance IV fluids, and will start albumin -continue Zosyn and vancomycin (09/23) -09/24: Blood cultures obtained and pending -09/24: Urine cultures obtained -09/24: Stool cultures pending (2) Lactic acidosis: Code(s): E87.20 - Acidosis, unspecified Status: Acute Assessment and Plan: Given severe lactic acidosis in the ER, patient had a CTA of the chest abdomen and pelvis which showed showed Prominent fecal material in the rectum and colon consistent with constipation,No bowel obstruction or intraperitoneal free air is detected otherwise , Cardiomegaly, Status post left mastectomy, 2.3 cm left exophytic renal cyst, Small left ventral abdominal wall fat-containing hernias. -surgery has been consulted -will continue to trend lactic acid -continue IV fluids (3) Fecal impaction of colon: Code(s): K56.41 - Fecal impaction Status: Acute Assessment and Plan: Presented with fecal impaction/constipation -for stools were disimpacted and patient has been having good bowel movements -stool for C diff is negative -09/24: stool cultures have been obtained and (4) Diabetes mellitus type 2 in obese: Code(s): E11.69 - Type 2 diabetes mellitus with other specified complication; E66.9 - Obesity, unspecified Status: Acute Assessment and Plan: Patient has a history of type 2 diabetes on Lantus 40 units SQ q.h.s. and sliding scale insulin at the residential -continue Accu-Cheks, sliding scale insulin -patient remains hyperglycemic -will start Lantus with a small dose as she is not eating at this time (5) Acute renal failure: Qualifiers: Acute renal failure type: with acute tubular necrosis Qualified Code(s): N17.0 - Acute kidney failure with tubular necrosis Code(s): N17.9 - Acute kidney failure, unspecified Status: Acute Assessment and Plan: Patient admitted with acute renal failure likely related to hypovolemia, hypotension, septic shock, infection UTI. Creatinine on admission was 1.40 (baseline creatinine 0.6-0.9 in 2021) -adequately fluid-resuscitated -creatinine trending down -adequate urine output -will continue to monitor renal function and electrolytes along with urine output (6) Chronic respiratory failure with hypoxia, on home O2 therapy: Code(s): J96.11 - Chronic respiratory failure with hypoxia; Z99.81 - Dependence on supplemental oxygen Status: Acute Assessment and Plan: Patient has a history of chronic respiratory failure and uses 2 L oxygen at the residential -patient has been on 03/05 3 L of oxygen via nasal cannula urine the ICU (7) Atrial fibrillation: Code(s): I48.91 - Unspecified atrial fibrillation Status: Acute Assessment and Plan: History of atrial fibrillation on apixaban at the residential -will start Lovenox 1 mg/kg subcutaneous q.12 hours (8) Dementia: Qualifiers: Dementia type: Alzheimer's Alzheimer's disease onset: unspecified onset Dementia severity: severe Dementia behavioral or psychological symptom: with psychotic disturbance Qualified Code(s): G30.9 - Alzheimer's disease, unspecified; F02.C2 - Dementia in other diseases classified elsewhere, severe, with psychotic disturbance Code(s): F03.90 - Unspecified dementia, unspecified severity, without behavioral
[2022-09-24] MEDS: ENOXAPARIN 40 MG/0.4 ML SYRINGE SUB-Q (09:00)
[2022-09-24] MEDS: INSULIN GLARGINE (*BKC) 100 UNITS/ML 20 UNITS SUB-Q (10:00)
[2022-09-24] MEDS: NOREPINEPHRINE 8 MG/D5W 250 ML 8 MG/250 ML BAG 16.88 MG IV CONT (10:36)
[2022-09-24 11:02] LABS: Lactic Acid Reflex 7.7 mmol/L (0.7-2.0)
[2022-09-24] MEDS: ALBUMIN HUMAN 25% 25 GM/100 ML 100 ML IVPB ×2 (11:16→17:22)
[2022-09-24] MEDS: PIPERACILLIN/TAZ 2.25G/NS 50ML 2.25 GM/50 ML BAG IVPB ×2 (11:17→17:21)
[2022-09-24 11:33] LABS: Glucose Point of Care 277 mg/dl (65-105)
[2022-09-24 13:09] LABS: Glucose Point of Care 225 mg/dl (65-105)
--- NOTE | 2022-09-24 13:16 | PM.IMPN ---
Progress Note: A&P Assessment and Plan (1) Septic shock: Code(s): A41.9 - Sepsis, unspecified organism; R65.21 - Severe sepsis with septic shock Status: Acute Assessment and Plan: [place] for [place]. She was found to have fecal impaction and was found to be hypotensive in the ER with BP as low as 57/37. -status post 3 L IV fluid bolus and was started on maintenance IV fluids, She remained hypotensive so central line placed and started on Levophed -lactic acid 8.8 -> 9.4 but trending down now. Possibly ischemic bowel but CTA Ch/A/P showing prominent fecal mat'l but no free air or obstruction. -Albumin started. Zosyn and vancomycin started (09/23) -09/24: Blood cultures pending -09/24: Urine cultures pending -09/24: Stool cultures pending Continue IV fluids, pressors and abx (2) Lactic acidosis: Code(s): E87.20 - Acidosis, unspecified Status: Acute Assessment and Plan: Given severe lactic acidosis in the ER, patient had a CTA of the Ch/A/P which showed showed Prominent fecal material in the rectum and colon consistent with constipation,No bowel obstruction or intraperitoneal free air is detected otherwise. Etiology unclear for the lactic acidosis. Consider ischemic bowel. -surgery was consulted -trend lactic acid -continue IV fluids (3) Acute renal failure: Qualifiers: Acute renal failure type: with acute tubular necrosis Qualified Code(s): N17.0 - Acute kidney failure with tubular necrosis Code(s): N17.9 - Acute kidney failure, unspecified Status: Acute Assessment and Plan: Baseline Cr normal. Patient had KETTY on admission with Cr 1.4. KETTY related to hypovolemia, hypotension, septic shock, occult infection and UTI. She did receive contrast but Cr better CT Abd/Pelvis showing 2.3cm exophytic left renal cyst and normal bladder. Palafox was placed. Cr trending down today. Continue IV fluids. Continue to maintain renal perfusion blood pressure Monitor UOP, electrolytes and renal function (4) Fecal impaction of colon: Code(s): K56.41 - Fecal impaction Status: Acute Assessment and Plan: Presented with fecal impaction/constipation -she was disimpacted and patient has been having good bowel movements since admission -stool for C diff is negative -09/24: stool cultures pending Continue to monitor (5) Diabetes mellitus type 2 in obese: Code(s): E11.69 - Type 2 diabetes mellitus with other specified complication; E66.9 - Obesity, unspecified Status: Acute Assessment and Plan: The patient's blood glucose was reviewed on 09/24 Glucose remains elevated Continue AccuCheks covering with sliding scale. Hypoglycemia protocol available as needed. Continue to monitor (6) Chronic respiratory failure with hypoxia, on home O2 therapy: Code(s): J96.11 - Chronic respiratory failure with hypoxia; Z99.81 - Dependence on supplemental oxygen Status: Acute Assessment and Plan: Patient has a history of chronic respiratory failure and uses 2 L oxygen at the senior living. CXR showing CMG and mild interstitial edema Monitor and wean to baseline O2 requirements. (7) Atrial fibrillation: Code(s): I48.91 - Unspecified atrial fibrillation Status: Acute Assessment and Plan: History of atrial fibrillation on apixaban at the senior living Not on rate controlling agents Therapeutic Lovenox started (8) Dementia: Qualifiers: Alzheimer's disease onset: unspecified onset Dementia behavioral or psychological symptom: with psychotic disturbance Dementia severity: severe Dementia type: Alzheimer's Qualified Code(s): G30.9 - Alzheimer's disease, unspecified; F02.C2 - Dementia in other diseases classified elsewhere, severe, with psychotic disturbance Code(s): F03.90 - Unspecified dementia, unspecified severity, without behavioral disturbance, psychotic di
[2022-09-24 13:43] LABS: Reflex Lactic Acid Yes or No Add Lactic
[2022-09-24] MEDS: ENOXAPARIN 30 MG/0.3 ML SYRINGE SUB-Q (13:54)
[2022-09-24 14:47] LABS: Lactic Acid 6.2 mmol/L (0.7-2.0)
--- NOTE | 2022-09-24 15:37 | PM.CNGS ---
Assessment and Plan Assessment and plan (1) Septic shock: Code(s): A41.9 - Sepsis, unspecified organism; R65.21 - Severe sepsis with septic shock Status: Acute Assessment and Plan: unknown etiology, she is somewhat responding to resuscitation and IV antibiotics, would continue for now well source investigation continues, patient is a very poor surgical candidate and this has been related to her power of commercial accountant (2) Ischemic colitis: Code(s): K55.9 - Vascular disorder of intestine, unspecified Status: Acute Assessment and Plan: could very well be the underlying cause of her sepsis, she is a very poor surgical candidate, currently mildly responding to medical optimization, continue supportive care for now, will continue to discuss with POA for possible surgical intervention if condition worsens History of Present Illness Consult details Consult date: 09/24/22 Reason for consult: abdominal pain Requesting physician: Doris Alexander MD Narrative: The patient is a 72-year-old female with multiple medical issues currently admitted to the ICU with sepsis. The patient presented from her half-way with complaints of abdominal pain and constipation. The patient is a non communicative at baseline and all history and information is obtained via chart. The patient is found to be in septic shock with lactic acidosis and a suspicion of ischemic colitis is the reason for consultation. The patient has responded somewhat to fluid resuscitation and antibiotics, however still has a significant lactic acidosis and is on pressor support. Of note, the patient is DNR, DNI and power of commercial accountant has been being updated as to her current issues. Review of Systems Review of Systems: ROS unobtainable: Yes unobtainable due to medical condition and unobtainable due to mental status [facility] Past Medical History Medical History Asthma-COPD overlap syndrome Atrial fibrillation Chronic respiratory failure with hypoxia, on home O2 therapy Dementia Diabetes mellitus type 2 in obese Dysphagia On a pureed diet at the half-way Hypertension Surgical History Surgical History History of bilateral knee replacement History of left mastectomy Family History Family History Other Unknown family medical history Social History Social History Social History: Code status: DNR/DNI per half-way orders. Smoking status: Unknown if ever smoked Alcohol intake: unknown Substance use: unknown Spiritual care concerns: No Meds Home Medications and Allergies Home Medications Medication Instructions Recorded Confirmed Type apixaban 5 mg tablet (Eliquis) 5 mg PO BID 09/04/21 09/23/22 History atorvastatin 20 mg tablet 20 mg PO HS 09/04/21 09/23/22 History budesonide-formoterol HFA 160 2 inh inhalation BID 09/04/21 09/23/22 History mcg-4.5 mcg/actuation aerosol inhaler cyclosporine 0.05 % eye drops in a 2 drp EACH EYE BID 09/04/21 09/23/22 History dropperette (Restasis) divalproex 125 mg capsule,delayed 500 mg PO TID 09/04/21 09/23/22 History release sprinkle furosemide 40 mg tablet 40 mg PO DAILY 09/04/21 09/23/22 History gabapentin 100 mg capsule 1 cap PO TID 09/04/21 09/23/22 History insulin glargine 100 unit/mL (3 40 ea subcut DAILY 09/04/21 09/23/22 History mL) subcutaneous pen (Lantus Solostar U-100 Insulin) insulin lispro 100 unit/mL 18 ea subcut TIDWM 09/04/21 09/23/22 History subcutaneous pen (Humalog KwikPen (U-100) Insulin) ipratropium 0.5 mg-albuterol 3 mg 3 ml inhalation Q6H PRN Shortness 09/04/21 09/23/22 History (2.5 mg base)/3 mL nebulization Of Breath Or Wheezing soln pantoprazole 40 mg tablet,delayed 1 tablet PO DAILY 09/04/21 09/23/22 Histo
[2022-09-24 17:40] LABS: Glucose Point of Care 166 mg/dl (65-105)
[2022-09-24] MEDS: NOREPINEPHRINE 8 MG/D5W 250 ML 8 MG/250 ML BAG 3.75 MG IV CONT (18:35)
[2022-09-24 18:52] LABS: Lactic Acid Reflex 4.5 mmol/L (0.7-2.0)
[2022-09-24] MEDS: ENOXAPARIN 80 MG/0.8 ML SYRINGE 70 MG SUB-Q (21:48)
[2022-09-25] VITALS (18 sets, daily range): BP systolic 85–120; BP diastolic 52–87; PULSE 83–100; RESP 13–24; TEMP 36.6–37.5; O2SAT 96–100
[2022-09-25] MEDS: PIPERACILLIN/TAZ 2.25G/NS 50ML 2.25 GM/50 ML BAG IVPB ×2 (00:15→05:24)
[2022-09-25] MEDS: ALBUMIN HUMAN 25% 25 GM/100 ML 100 ML IVPB ×3 (02:02→11:16)
[2022-09-25] MEDS: HALOPERIDOL LACTATE 5 MG/ML VIAL IM ×2 (02:05→21:26)
[2022-09-25 05:43] LABS: Hematocrit 26.6 % (37.0-47.0); Hemoglobin 8.8 g/dL (12.0-15.0); Mean Corpuscular HGB Conc 33.1 g/dl (32-36); Mean Corpuscular Hemoglobin 32.8 pg (26-34); Mean Corpuscular Volume 99.3 fl (80-100); Mean Platelet Volume 9.8 fl (7.4-10.4); Platelet Count Result 77 k/mm3 (150-375); Red Blood Count 2.68 M/mm3 (4.2-5.4); Red Cell Distribution Width 13.9 % (11.5-14.5); White Blood Count 7.9 K/mm3 (4.5-10.0)
[2022-09-25 05:46] LABS: Glucose Point of Care 116 mg/dl (65-105)
[2022-09-25 05:46] LABS: Glucose Point of Care 98 mg/dl (65-105)
[2022-09-25 05:56] LABS: Alanine Aminotransferase 14 U/L (6-35); Albumin Level 2.5 g/dL (3.5-5.1); Alkaline Phosphatase 22 U/L (38-126); Anion Gap 4 mmol/L (8-16); Aspartate Amino Transferase 23 U/L (14-36); Bilirubin,Total 0.9 mg/dL (0.2-1.3); Blood Urea Nitrogen 20 mg/dL (7-17); Calcium 7.9 mg/dL (8.4-10.2); Carbon Dioxide 37 mmol/L (22-30); Chloride 96 mmol/L (98-107); Creatine Kinase 167 U/L (30-135); Estimated CRCL calculation 51 ml/min; Estimated Glomerular Filt Rate > 60; Glucose 102 mg/dL (65-110); Magnesium 1.7 mg/dL (1.6-2.3); Potassium 2.7 mmol/L (3.4-5.0); Sodium 137 mmol/L (137-145)
[2022-09-25] MEDS: KCL 40 MEQ/WATER 100 ML 100 ML 25 ML IVPB ×2 (07:02→10:11)
[2022-09-25 07:21] LABS: Band Neutrophils Percent 33 % (0-6); Lymphocytes Absolute Manual 1.58 K/mm3 (1.1-4.5); Monocytes Absolute Manual 0.31 K/mm3 (0.1-0.90); Monocytes Percent Manual 4 % (3-9); Neutrophils Percent Manual 43 % (46-73); Platelet Estimate Decreased (Adequate); Schistocytes None Seen (NORMAL); Total Cells Counted 100
[2022-09-25] MEDS: FLUTICASONE/SALMETEROL 115-21 MCG INHALER 1 PUFF 2 PUFF INHALATION ×2 (07:59→19:38)
[2022-09-25] MEDS: PANTOPRAZOLE SODIUM IV 40 MG VIAL IV PUSH (08:33)
[2022-09-25] MEDS: cycloSPORINE 0.4 ML OPHTH SOLUTION 1 DROP EACH EYE ×2 (08:33→17:00)
[2022-09-25] MEDS: VANCOMYCIN 1,250 MG/NS 250 ML 1,250 MG/250 ML BAG 166.67 MG IVPB (08:36)
[2022-09-25] MEDS: INSULIN GLARGINE (*BKC) 100 UNITS/ML 20 UNITS SUB-Q (08:37)
[2022-09-25] MEDS: MAGNESIUM SULF 2 GM/WATER 50ML 2 GM/50 ML BAG IVPB (08:37)
--- NOTE | 2022-09-25 09:20 | PM.IMPN ---
Progress Note: A&P Assessment and Plan (1) Septic shock: Code(s): A41.9 - Sepsis, unspecified organism; R65.21 - Severe sepsis with septic shock Status: Acute Assessment and Plan: Patient brought in from the [place] for constipation. She was found to have fecal impaction and hypotensive with BP as low as 57/37. -status post 3 L IV fluid bolus and was started on maintenance IV fluids, She remained hypotensive so central line placed and started on Levophed -lactic acid 8.8 -> 9.4 but trended to normal now. Possibly ischemic bowel but CTA Ch/A/P showing prominent fecal mat'l but no free air or obstruction. -Albumin started. Zosyn and vancomycin started (09/23) -09/24: Blood cultures pending -09/24: Urine cultures pending -09/24: Stool cultures pending Down to Levophed 1mcg/min WBC normal now but with 33% bands. Continue IV fluids, pressors and abx. Wean pressors as toerlated. (2) Lactic acidosis: Code(s): E87.20 - Acidosis, unspecified Status: Acute Assessment and Plan: Given severe lactic acidosis in the ER, patient had a CTA of the Ch/A/P which showed showed prominent fecal material in the rectum and colon consistent with constipation. No bowel obstruction or intraperitoneal free air is detected otherwise. Etiology unclear for the lactic acidosis. Consider ischemic bowel. Surgery was consulted and appreciated their input. Lactic acid normal now. Continue IV fluids. (3) Anemia: Code(s): D64.9 - Anemia, unspecified Status: Acute Assessment and Plan: Hgb was 14 on admission and stable until dropping to 8.8 today. No evidence of acute blood loss. Lovenox on hold. Iron and B12 studies ordered. Serial HH. (4) Thrombocytopenia: Code(s): D69.6 - Thrombocytopenia, unspecified Status: Acute Assessment and Plan: Plt count normal on admission (200K) but dropped to 144K yesterday and now at 77K. Was on Lovenox but now held. Check HIT ab but could also be related to the ischemic bowel. (5) Acute renal failure: Qualifiers: Acute renal failure type: with acute tubular necrosis Qualified Code(s): N17.0 - Acute kidney failure with tubular necrosis Code(s): N17.9 - Acute kidney failure, unspecified Status: Acute Assessment and Plan: Baseline Cr normal. Patient had KETTY on admission with Cr 1.4. KETTY related to hypovolemia, hypotension, septic shock, occult infection and UTI. She did receive contrast but Cr better CT Abd/Pelvis showing 2.3cm exophytic left renal cyst and normal bladder. Palafox was placed. Cr trended to normal now Continue to monitor UOP, electrolytes and renal function (6) Fecal impaction of colon: Code(s): K56.41 - Fecal impaction Status: Acute Assessment and Plan: Presented with fecal impaction/constipation -she was disimpacted and patient has been having good number of bowel movements since admission -stool for C diff is negative -09/24: stool cultures pending Continue to monitor (7) Diabetes mellitus type 2 in obese: Code(s): E11.69 - Type 2 diabetes mellitus with other specified complication; E66.9 - Obesity, unspecified Status: Acute Assessment and Plan: The patient's blood glucose was reviewed on 09/25 Glucose well controlled Continue AccuCheks covering with sliding scale. Hypoglycemia protocol available as needed. Continue to monitor (8) Chronic respiratory failure with hypoxia, on home O2 therapy: Code(s): J96.11 - Chronic respiratory failure with hypoxia; Z99.81 - Dependence on supplemental oxygen Status: Acute Assessment and Plan: Patient has a history of chronic respiratory failure and uses 2 L oxygen at the [facility]. CXR showing CMG and mild interstitial edema Monitor and wean to baseline O2 requirements. (9) Atrial fibrillation: Code(s): I48.91 - Unspecified atrial fibrillation Status: Acute Assessment an
[2022-09-25 09:24] LABS: Iron 13 ug/dL (37-170)
--- NOTE | 2022-09-25 09:29 | PM.PNGS ---
Progress Note: A&P Assessment and Plan (1) Ischemic colitis: Code(s): K55.9 - Vascular disorder of intestine, unspecified Status: Acute Assessment and Plan: clinically and lab improvement, cont supportive care, would start feeding Subjective Subjective Date/Time Seen: 09/25/22 09:29 Interval history: no acute issues, seems better this am Review of Systems Review of Systems: ROS unobtainable: Yes unobtainable due to mental status Exam Const: General: no acute distress and ill appearing Resp: Auscultation: diminished lung sounds Cardio: Rate: regular rate Rhythm: regular rhythm GI: Inspection: normal to inspection, no edema and distended GI Palp: Yes abdominal tenderness, Yes Soft to palpation, Yes Tenderness to palpation present (GI), No Guarding due to palpation present (GI) and No Rigid due to palpation Objective Data Vital Signs Vital Signs: Vital Signs - 24 hr 09/24/22 09:30 09/24/22 10:33 09/24/22 10:36 Temperature Pulse Rate 96 95 94 Respiratory Rate Blood Pressure 112/73 110/66 110/66 Pulse Oximetry Oxygen Delivery Fraction of Inspired Oxygen 09/24/22 10:36 09/24/22 11:17 09/24/22 13:02 Temperature Pulse Rate 94 100 96 Respiratory Rate Blood Pressure 110/66 101/70 115/65 Pulse Oximetry Oxygen Delivery Fraction of Inspired Oxygen 09/24/22 10:00 09/24/22 12:00 09/24/22 14:00 Temperature 37.7 C H 37.6 C H 37.6 C H Pulse Rate 97 96 94 Respiratory Rate 23 H 14 14 Blood Pressure 118/68 103/76 109/59 L Pulse Oximetry 97 94 96 Oxygen Delivery Fraction of Inspired Oxygen 09/24/22 14:02 09/24/22 15:16 09/24/22 12:00 Temperature Pulse Rate 94 94 Respiratory Rate Blood Pressure 109/59 L 98/63 L Pulse Oximetry 96 Oxygen Delivery Room Air Fraction of Inspired Oxygen 09/24/22 16:17 09/24/22 10:00 09/24/22 12:00 Temperature Pulse Rate 96 97 95 Respiratory Rate Blood Pressure 115/75 Pulse Oximetry Oxygen Delivery Fraction of Inspired Oxygen 09/24/22 14:00 09/24/22 16:00 09/24/22 17:22 Temperature Pulse Rate 93 97 98 Respiratory Rate Blood Pressure 106/59 L Pulse Oximetry Oxygen Delivery Fraction of Inspired Oxygen 09/24/22 17:33 09/24/22 16:00 09/24/22 18:35 Temperature Pulse Rate 95 95 92 Respiratory Rate 16 Blood Pressure 105/58 L 106/58 L 92/54 L Pulse Oximetry 97 Oxygen Delivery Fraction of Inspired Oxygen 09/24/22 18:35 09/24/22 18:00 09/24/22 18:59 Temperature 37.3 C Pulse Rate 91 97 94 Respiratory Rate 16 Blood Pressure 92/54 L 93/61 L 93/51 L Pulse Oximetry 97 Oxygen Delivery Fraction of Inspired Oxygen 09/24/22 19:23 09/24/22 18:00 09/24/22 16:00 Temperature Pulse Rate 99 93 Respiratory Rate 16 Blood Pressure Pulse Oximetry 97 Oxygen Delivery Room Air Fraction of Inspired Oxygen 09/24/22 20:00 09/24/22 20:00 09/24/22 20:00 Temperature 36.4 C Pulse Rate 98 99 98 Respiratory Rate 16 17 Blood Pressure 111/56 L Pulse Oximetry 97 97 Oxygen Delivery Room Air Fraction of Inspired Oxygen 09/24/22 22:00 09/24/22 22:00 09/25/22 00:00 Temperature 36.6 C Pulse Rate 100 100 96 Respiratory Rate 15 Blood Pressure 108/62 Pulse Oximetry 96 Oxygen Delivery Fraction of Inspired Oxygen 09/25/22 00:00 09/25/22 00:00 09/25/22 02:00 Temperature 36.9 C Pulse Rate 96 100 92 Respiratory Rate 13 15 Blood Pressure 111/57 L Pulse Oximetry 96 96 Oxygen Delivery Room Air Fraction of Inspired Oxygen 09/25/22 02:00 09/25/22 04:00 09/25/22 04:00 Temperature Pulse Rate 92 92 90 Respiratory Rate 16 16 15 Blood Pressure 103/65 105/53 L Pulse Oximetry 96 96 99 Oxygen Delivery Room Air Fraction of Inspired Oxygen 09/25/22 04:00 09/25/22 06:00 09/25/22 06:00 Temperature 36.8 C Pulse Rate 91 84 85 Respiratory Rate 18 Blood Pressure 96/7
[2022-09-25 09:34] LABS: Percent Iron Saturation 8 % (20-50)
[2022-09-25] MEDS: LACTATED RINGERS 1,000 ML 75 ML IV CONT ×2 (10:19→22:23)
--- NOTE | 2022-09-25 10:41 | WPDINTPN ---
Progress Note: A&P Assessment and Plan (1) Septic shock: Code(s): A41.9 - Sepsis, unspecified organism; R65.21 - Severe sepsis with septic shock Status: Acute Assessment and Plan: Patient presented with fecal impaction, constipation x4 days, was found to be hypotensive in the ER with systolic blood pressures in the 70s -status post 3 L IV fluid bolus and was started on maintenance IV fluids on admission + additional fluid bolus in the ICU + maintenance IV fluids -wean Levophed to maintain MAP > 70 mmHg for adequate end organ perfusion -lactic acid down to 2.0 (9.4 on admission) -continue maintenance IV fluids with LR, sodium bicarb infusion has been discontinued -continue Zosyn and vancomycin (09/23) -09/24: Blood cultures negative x2 so far -09/24: Urine cultures obtained and pending -09/24: Stool cultures pending (2) Lactic acidosis: Code(s): E87.20 - Acidosis, unspecified Status: Acute Assessment and Plan: Given severe lactic acidosis in the ER, patient had a CTA of the chest abdomen and pelvis which showed showed Prominent fecal material in the rectum and colon consistent with constipation,No bowel obstruction or intraperitoneal free air is detected otherwise , Cardiomegaly, Status post left mastectomy, 2.3 cm left exophytic renal cyst, Small left ventral abdominal wall fat-containing hernias. - appreciate surgery evaluation -lactic acid has normalized -continue IV fluids (3) Fecal impaction of colon: Code(s): K56.41 - Fecal impaction Status: Acute Assessment and Plan: Presented with fecal impaction/constipation -for stools were disimpacted and patient has been having good bowel movements -stool for C diff is negative -09/24: stool cultures have been obtained and pending (4) Diabetes mellitus type 2 in obese: Code(s): E11.69 - Type 2 diabetes mellitus with other specified complication; E66.9 - Obesity, unspecified Status: Acute Assessment and Plan: Patient has a history of type 2 diabetes on Lantus 40 units SQ q.h.s. and sliding scale insulin at the group home -continue Accu-Cheks, sliding scale insulin -patient remains hyperglycemic -continue low-dose Lantus -speech therapy has been consulted for bedside swallow test (5) Acute renal failure: Qualifiers: Acute renal failure type: with acute tubular necrosis Qualified Code(s): N17.0 - Acute kidney failure with tubular necrosis Code(s): N17.9 - Acute kidney failure, unspecified Status: Acute Assessment and Plan: Patient admitted with acute renal failure likely related to hypovolemia, hypotension, septic shock, infection UTI. Creatinine on admission was 1.40 (baseline creatinine 0.6-0.9 in 2021) -adequately fluid-resuscitated -creatinine has normalized -adequate urine output -will continue to monitor renal function and electrolytes along with urine output (6) Chronic respiratory failure with hypoxia, on home O2 therapy: Code(s): J96.11 - Chronic respiratory failure with hypoxia; Z99.81 - Dependence on supplemental oxygen Status: Acute Assessment and Plan: Patient has a history of chronic respiratory failure and uses 2 L oxygen at the group home -currently on room air (7) Atrial fibrillation: Code(s): I48.91 - Unspecified atrial fibrillation Status: Acute Assessment and Plan: History of atrial fibrillation on apixaban at the group home -patient was on therapy Lovenox which currently is on hold due to anemia and thrombocytopenia (8) Dementia: Qualifiers: Dementia type: Alzheimer's Alzheimer's disease onset: unspecified onset Dementia severity: severe Dementia behavioral or psychological symptom: with psychotic disturbance Qualified Code(s): G30.9 - Alzheimer's disease, unspecified; F02.C2 - Dementia in other diseases classified elsewhere, severe, with psychotic disturbance Code(s): F03.90 - Unspecified dem
--- NOTE | 2022-09-25 11:11 | PCFNICU ---
ICU Rounding Note: Pt current nutrition is NPO. Nutrition recommendation: will make further recommendations once swallow study has been performed. Last recorded weight is 76.7 kg. Bowel Motility:+Bm reported 09/24 Labs Reviewed:BUN 20,K 2.7,Alb 2.5,Hct 26.6,Hgb 8.8 Meds Noted:Lovenox, LR, Levophed, Protonix, Zosyn,Lantus Skin: Deep Tissue pressure injury-Left heel Additional Notes: Patient remains NPO. Room air. More alert today. Swallow Study ordered today. Monitoring daily in ICU rounds. Follow up every 5 days.
[2022-09-25] MEDS: PIPERACILLN/TAZ 3.375GM/NS50ML 3.375 GM/50 ML BAG IVPB ×3 (11:16→23:43)
[2022-09-25 11:52] LABS: Glucose Point of Care 77 mg/dl (65-105)
[2022-09-25 12:16] LABS: Hematocrit 25.8 % (37.0-47.0); Hemoglobin 8.6 g/dL (12.0-15.0)
[2022-09-25 13:58] LABS: IFOB Positive Control Positive; Immunochemical Fecal Occult Bl Positive (N)
--- NOTE | 2022-09-25 14:20 | PCSTNOTE ---
Attempted bedside swallowing evaluation. Could not evaluate patient due to her current mental status. She was calling out for vaseline and did not follow any instructions or respond to questions. When given a small amount of cranberry juice by mouth she did not attempt to close her lips on spoon and kept her tongue protruded causing spillage on liquid. Attempted x2 with cranberry juice and x2 with water. No reflexive oral preparatory activity. Discussed with nursing. Will attempt to evaluate patient again tomorrow.
[2022-09-25 16:51] LABS: Glucose Point of Care 51 mg/dl (65-105)
[2022-09-25] MEDS: DEXTROSE 50% 25 GM/50 ML SYRINGE IV PUSH (16:53)
[2022-09-25 17:05] LABS: Glucose Point of Care 185 mg/dl (65-105)
[2022-09-25 17:53] LABS: Hematocrit 24.8 % (37.0-47.0); Hemoglobin 8.1 g/dL (12.0-15.0)
[2022-09-25] MEDS: LORazepam INJ (*CRX) 2 MG/ML VIAL 0.5 MG IV PUSH (22:15)
[2022-09-25 22:30] LABS: Glucose Point of Care 140 mg/dl (65-105)
[2022-09-26] VITALS (15 sets, daily range): BP systolic 90–141; BP diastolic 59–89; PULSE 80–93; RESP 15–29; TEMP 36.6–37.2; O2SAT 94–100
[2022-09-26] MEDS: PIPERACILLN/TAZ 3.375GM/NS50ML 3.375 GM/50 ML BAG IVPB (05:11)
[2022-09-26 05:34] LABS: Hematocrit 26.1 % (37.0-47.0); Hemoglobin 8.3 g/dL (12.0-15.0); Immature Platelet Fraction Pct 3.2 % (0.9-11.2); Mean Corpuscular HGB Conc 31.8 g/dl (32-36); Mean Corpuscular Hemoglobin 31.7 pg (26-34); Mean Corpuscular Volume 99.6 fl (80-100); Mean Platelet Volume 10.3 fl (7.4-10.4); Platelet Count Result 63 k/mm3 (150-375); Red Blood Count 2.62 M/mm3 (4.2-5.4); Red Cell Distribution Width 14.4 % (11.5-14.5); White Blood Count 8.7 K/mm3 (4.5-10.0)
[2022-09-26 05:47] LABS: Alanine Aminotransferase 14 U/L (6-35); Albumin Level 2.6 g/dL (3.5-5.1); Alkaline Phosphatase 26 U/L (38-126); Anion Gap 3 mmol/L (8-16); Aspartate Amino Transferase 28 U/L (14-36); Blood Urea Nitrogen 15 mg/dL (7-17); Calcium 8.6 mg/dL (8.4-10.2); Carbon Dioxide 32 mmol/L (22-30); Chloride 101 mmol/L (98-107); Estimated CRCL calculation 53 ml/min; Estimated Glomerular Filt Rate > 60; Glucose 98 mg/dL (65-110); Magnesium 2.1 mg/dL (1.6-2.3); Phosphorus 2.5 mg/dL (2.5-4.5); Potassium 2.9 mmol/L (3.4-5.0); Sodium 136 mmol/L (137-145)
[2022-09-26] MEDS: SODIUM CHLORIDE 0.9% IV 1,000 ML 100 ML IV CONT (07:59)
[2022-09-26] MEDS: hetaSTARCH 6%/NACL 500 ML 250 ML IV CONT (08:01)
[2022-09-26] MEDS: cefTRIAXone 2 GM/NS 100 ML 2 GM/100 ML BAG IVPB (08:05)
[2022-09-26] MEDS: PANTOPRAZOLE SODIUM IV 40 MG VIAL IV PUSH (08:06)
[2022-09-26] MEDS: INSULIN GLARGINE (*BKC) 100 UNITS/ML 10 UNITS SUB-Q (08:08)
[2022-09-26] MEDS: FLUTICASONE/SALMETEROL 115-21 MCG INHALER 1 PUFF 2 PUFF INHALATION ×2 (08:11→20:14)
[2022-09-26] MEDS: KCL 40 MEQ/WATER 100 ML 100 ML 25 ML IVPB ×2 (08:11→12:17)
[2022-09-26 08:14] LABS: Band Neutrophils Percent 19 % (0-6); Lymphocytes Absolute Manual 2.17 K/mm3 (1.1-4.5); Monocytes Absolute Manual 0.17 K/mm3 (0.1-0.90); Monocytes Percent Manual 2 % (3-9); Neutrophils Absolute Manual 6.35 K/mm3 (1.7-7.2); Neutrophils Percent Manual 54 % (46-73); Platelet Estimate Decreased (Adequate); Schistocytes None Seen (NORMAL); Total Cells Counted 100
[2022-09-26] MEDS: cycloSPORINE 0.4 ML OPHTH SOLUTION 1 DROP EACH EYE ×2 (08:26→17:43)
--- NOTE | 2022-09-26 08:42 | WPDINTPN ---
Progress Note: A&P Assessment and Plan (1) Septic shock: Code(s): A41.9 - Sepsis, unspecified organism; R65.21 - Severe sepsis with septic shock Status: Acute Assessment and Plan: Patient presented with fecal impaction, constipation x4 days, was found to be hypotensive in the ER with systolic blood pressures in the 70s -status post 3 L IV fluid bolus and was started on maintenance IV fluids on admission + additional fluid bolus in the ICU + maintenance IV fluids -wean Levophed to maintain MAP > 70 mmHg for adequate end organ perfusion -lactic acid down to 2.0 (9.4 on admission) -continue maintenance IV fluids with LR, sodium bicarb infusion has been discontinued -switched Zosyn to ceftriaxone (09/26) due to thrombocytopenia, continue vancomycin (09/23) -09/24: Blood cultures negative x2 so far -09/24: Urine cultures E coli, sensitivities pending -09/24: Stool cultures negative for Campylobacter and E coli shiga toxins, salmonella and Shigella culture are pending (2) Lactic acidosis: Code(s): E87.20 - Acidosis, unspecified Status: Acute Assessment and Plan: Given severe lactic acidosis in the ER, patient had a CTA of the chest abdomen and pelvis which showed showed Prominent fecal material in the rectum and colon consistent with constipation,No bowel obstruction or intraperitoneal free air is detected otherwise , Cardiomegaly, Status post left mastectomy, 2.3 cm left exophytic renal cyst, Small left ventral abdominal wall fat-containing hernias. - appreciate surgery evaluation -lactic acid has normalized -continue IV fluids (3) Fecal impaction of colon: Code(s): K56.41 - Fecal impaction Status: Acute Assessment and Plan: Presented with fecal impaction/constipation -for stools were disimpacted and patient has been having good bowel movements -stool for C diff is negative -stool cultures as above (4) Diabetes mellitus type 2 in obese: Code(s): E11.69 - Type 2 diabetes mellitus with other specified complication; E66.9 - Obesity, unspecified Status: Acute Assessment and Plan: Patient has a history of type 2 diabetes on Lantus 40 units SQ q.h.s. and sliding scale insulin at the halfway -continue Accu-Cheks, sliding scale insulin -patient remains hyperglycemic -continue low-dose Lantus -09/25: Patient failed her swallow evaluation (5) Acute renal failure: Qualifiers: Acute renal failure type: with acute tubular necrosis Qualified Code(s): N17.0 - Acute kidney failure with tubular necrosis Code(s): N17.9 - Acute kidney failure, unspecified Status: Acute Assessment and Plan: Patient admitted with acute renal failure likely related to hypovolemia, hypotension, septic shock, infection UTI. Creatinine on admission was 1.40 (baseline creatinine 0.6-0.9 in 2021) -adequately fluid-resuscitated -creatinine has normalized -adequate urine output -will continue to monitor renal function and electrolytes along with urine output (6) Chronic respiratory failure with hypoxia, on home O2 therapy: Code(s): J96.11 - Chronic respiratory failure with hypoxia; Z99.81 - Dependence on supplemental oxygen Status: Acute Assessment and Plan: Patient has a history of chronic respiratory failure and uses 2 L oxygen at the halfway -currently on room air (7) Atrial fibrillation: Code(s): I48.91 - Unspecified atrial fibrillation Status: Acute Assessment and Plan: History of atrial fibrillation on apixaban at the halfway -patient was on therapy Lovenox which currently is on hold due to anemia and thrombocytopenia (8) Dementia: Qualifiers: Dementia type: Alzheimer's Alzheimer's disease onset: unspecified onset Dementia severity: severe Dementia behavioral or psychological symptom: with psychotic disturbance Qualified Code(s): G30.9 - Alzheimer's disease, unspecified; F02.C2 - Dementia in other
[2022-09-26 09:29] LABS: Vancomycin Trough 9.9 ug/mL (10.0-20.0)
--- NOTE | 2022-09-26 10:09 | PCSTNOTE ---
Bedside swallowing evaluation. Unable to evaluate yesterday due to patient not alert or cooperative. Today patient is calmer and more cooperative. Seen bedside in ICU with head of bed elevated. Thin liquids were trialed by spoon, cup, and straw. Patient did not seem aware of spoon, or cup and did not attempt to drink. Verbal and tactile cues were utilized and not effective. No lip closure on cup or spoon. Patient did attempt to suck on straw but was unable to draw liquid through straw, due to apparent weakness. Pureed food (applesauce) was trialed by spoon. Patient initially needed cues to open mouth, put lips on spoon, and swallow, but then became able to finish 4 ounce container of applesauce given by spoon with fewer cues. Patient's vocal quality was clear after swallowing, and no coughing was observed. Based on the results of this evaluation pureed diet with moderately thickened liquids is recommended. Patient may not accept liquids from cup in which case a spoon may be used. No further speech therapy is recommended for this patient. Please note that a silent aspiration cannot be ruled out at bedside and can only be evaluated with a modified barium swallow study. Thank you for the referral of this patient.
--- NOTE | 2022-09-26 11:27 | PCFNICU ---
ICU Rounding Note: Pt current nutrition is Pureed,Level 4 with Moderately Thick liquids, Level 3. Nutrition recommendation: Nutritional Ice cream BID. Last recorded weight is 82.2 kg. Bowel Motility:+BM reported 09/26 Labs Reviewed:K 2.9,Alb 2.6, Hct 26.1, Hgb 8.3 Meds Noted:Lovenox, Lantus, NovoLog, Protonix. Skin: DTI-left heel Additional Notes: Patient diet order has advanced to Pureed, Level 4 diet with Moderately thick liquids, Level 3 diet, no straws. Recommend adding Nutritional Ice cream BID for additional 300 kcals and 9 gms protein. Agree with diet orders. Monitoring daily in ICU rounds. Follow up every 5 days.
[2022-09-26] MEDS: LACTATED RINGERS 1,000 ML 75 ML IV CONT (12:17)
[2022-09-26 12:24] LABS: Glucose Point of Care 81 mg/dl (65-105)
[2022-09-26] MEDS: LORazepam INJ (*CRX) 2 MG/ML VIAL 0.5 MG IV PUSH ×2 (12:58→22:15)
--- NOTE | 2022-09-26 14:07 | PM.PNGS ---
Progress Note: A&P Assessment and Plan (1) Ischemic colitis: Code(s): K55.9 - Vascular disorder of intestine, unspecified Status: Acute Assessment and Plan: largely resolved c aggressive medical mgmt, exam now benign and labs improved, no acute surgical issues, will s/o, call c ?s, issues Subjective Subjective Date/Time Seen: 09/26/22 14:07 Interval history: much for alert, awake although quite combative (likely baseline), chiquita some food Review of Systems Review of Systems: ROS unobtainable: Yes unobtainable due to mental status Exam Const: General: no acute distress, combative and ill appearing Resp: Auscultation: diminished lung sounds Cardio: Rate: regular rate Rhythm: regular rhythm GI: Inspection: normal to inspection and distended GI Palp: Yes abdominal tenderness, Yes Soft to palpation, Yes Tenderness to palpation present (GI), No Guarding due to palpation present (GI) and No Rigid due to palpation Objective Data Vital Signs Vital Signs: Vital Signs - 24 hr 09/25/22 16:00 09/25/22 16:00 09/25/22 16:00 Temperature 37.5 C Pulse Rate 84 84 84 Respiratory Rate 13 13 Blood Pressure 99/61 L Pulse Oximetry 98 98 Oxygen Delivery Room Air 09/25/22 18:00 09/25/22 18:00 09/25/22 19:38 Temperature 37.5 C Pulse Rate 86 87 87 Respiratory Rate 24 H 13 Blood Pressure 87/64 L Pulse Oximetry 99 Oxygen Delivery 09/25/22 19:49 09/25/22 20:00 09/25/22 20:00 Temperature 37.1 C Pulse Rate 87 89 86 Respiratory Rate 16 15 Blood Pressure 101/64 Pulse Oximetry 99 97 Oxygen Delivery Room Air 09/25/22 21:58 09/26/22 00:00 09/26/22 00:00 Temperature 37.2 C Pulse Rate 98 81 83 Respiratory Rate 15 Blood Pressure 90/65 L Pulse Oximetry 99 Oxygen Delivery Room Air 09/26/22 00:00 09/26/22 02:00 09/26/22 03:10 Temperature Pulse Rate 85 89 81 Respiratory Rate 17 Blood Pressure Pulse Oximetry 99 Oxygen Delivery Room Air 09/26/22 04:00 09/26/22 04:00 09/26/22 06:00 Temperature 37.1 C Pulse Rate 82 82 80 Respiratory Rate 19 Blood Pressure 134/68 Pulse Oximetry 100 Oxygen Delivery 09/26/22 06:00 09/26/22 08:11 09/26/22 08:00 Temperature 36.9 C Pulse Rate 80 Respiratory Rate 20 Blood Pressure 93/68 L Pulse Oximetry 100 99 Oxygen Delivery Room Air Room Air 09/26/22 08:00 09/26/22 08:00 09/26/22 10:00 Temperature 36.8 C Pulse Rate 83 85 80 Respiratory Rate 22 H Blood Pressure 105/59 L Pulse Oximetry 100 Oxygen Delivery 09/26/22 10:00 09/26/22 12:00 09/26/22 12:00 Temperature 36.6 C Pulse Rate 80 82 Respiratory Rate 22 H Blood Pressure 96/67 L Pulse Oximetry 100 Oxygen Delivery Room Air 09/26/22 12:00 Temperature Pulse Rate 83 Respiratory Rate 20 Blood Pressure 109/72 Pulse Oximetry 100 Oxygen Delivery Intake/Output Intake/Output: Intake & Output 09/23/22 09/24/22 09/25/22 09/26/22 23:59 23:59 23:59 23:59 Intake Total 2050 3389 1350 2050 Output Total 1725 2975 750 Balance 0 1664 -1625 1300 Meds/Results Medications: Active Medications Generic Name Dose Route Start Last Admin Trade Name Freq PRN Reason Stop Dose Admin Albuterol 2.5 mg 09/24/22 02:17 Albuterol Sulfate Neb 2.5 Mg/3 Ml Inh INHALATION Q6H PRN Shortness Of Breath Or Wheezing Cyclosporine 1 drop 09/24/22 09:00 09/26/22 08:26 Cyclosporine 0.4 Ml Ophth Solution EACH EYE 1 drop BID LYNN Administration Dextrose 12.5 gm 09/24/22 02:07 09/25/22 16:53 Dextrose 50% 25 Gm/50 Ml Syringe IV PUSH 12.5 gm PRN PRN Administration Hypoglycemia Protocol Divalproex Sodium 500 mg 09/26/22 14:00 Divalproex Sodium Sprinkle 125 Mg Cap.Dr PO Q8HR LYNN Enoxaparin Sodium 70 mg 09/24/22 21:00 09/24/22 21:48 Enoxaparin 80 Mg/0.8 Ml Syringe SUB-Q 70 mg Q12H LYNN Administration Glucagon 1 mg 09/24/22 02:07 Glucagon For I
[2022-09-26] MEDS: DIVALPROEX SODIUM SPRINKLE 125 MG CAP.DR 500 MG PO ×2 (15:56→22:05)
[2022-09-26 17:50] LABS: Glucose Point of Care 102 mg/dl (65-105)
[2022-09-26] MEDS: risperiDONE 0.5 MG TABLET PO (20:14)
[2022-09-27] VITALS (9 sets, daily range): BP systolic 116–154; BP diastolic 68–81; PULSE 72–87; RESP 15–19; TEMP 36.6–37.4; O2SAT 98–100
[2022-09-27 00:08] LABS: Glucose Point of Care 88 mg/dl (65-105)
[2022-09-27] MEDS: LACTATED RINGERS 1,000 ML 75 ML IV CONT (01:17)
[2022-09-27 05:13] LABS: Hematocrit 27.3 % (37.0-47.0); Hemoglobin 8.7 g/dL (12.0-15.0); Immature Platelet Fraction Pct 3.3 % (0.9-11.2); Mean Corpuscular HGB Conc 31.9 g/dl (32-36); Mean Corpuscular Hemoglobin 32.3 pg (26-34); Mean Corpuscular Volume 101.5 fl (80-100); Mean Platelet Volume 10.1 fl (7.4-10.4); Platelet Count Result 66 k/mm3 (150-375); Red Blood Count 2.69 M/mm3 (4.2-5.4); Red Cell Distribution Width 14.4 % (11.5-14.5); White Blood Count 7.7 K/mm3 (4.5-10.0)
[2022-09-27 05:29] LABS: Alanine Aminotransferase 17 U/L (6-35); Albumin Level 2.2 g/dL (3.5-5.1); Alkaline Phosphatase 35 U/L (38-126); Anion Gap 4 mmol/L (8-16); Aspartate Amino Transferase 27 U/L (14-36); Bilirubin,Total 0.7 mg/dL (0.2-1.3); Blood Urea Nitrogen 11 mg/dL (7-17); Calcium 8.8 mg/dL (8.4-10.2); Carbon Dioxide 25 mmol/L (22-30); Chloride 109 mmol/L (98-107); Estimated CRCL calculation 45 ml/min; Estimated Glomerular Filt Rate > 60; Glucose 88 mg/dL (65-110); Magnesium 1.7 mg/dL (1.6-2.3); Phosphorus 2.7 mg/dL (2.5-4.5); Potassium 3.5 mmol/L (3.4-5.0); Sodium 138 mmol/L (137-145)
[2022-09-27 05:31] LABS: Band Neutrophils Percent 4 % (0-6); Eosinophils Absolute Manual 0.07 K/mm3 (0.02-0.5); Eosinophils Percent Manual 1 % (0-4); Monocytes Absolute Manual 0.15 K/mm3 (0.1-0.90); Monocytes Percent Manual 2 % (3-9); Neutrophils Absolute Manual 5.46 K/mm3 (1.7-7.2); Neutrophils Percent Manual 67 % (46-73); Platelet Estimate Decreased (Adequate); Total Cells Counted 100
[2022-09-27 05:32] LABS: Anisocytosis 1+ (NORMAL); Hypochromasia 1+ (NORMAL); Schistocytes None Seen (NORMAL)
[2022-09-27] MEDS: DIVALPROEX SODIUM SPRINKLE 125 MG CAP.DR 500 MG PO ×2 (06:02→16:54)
[2022-09-27] MEDS: cycloSPORINE 0.4 ML OPHTH SOLUTION 1 DROP EACH EYE ×2 (08:18→16:54)
[2022-09-27] MEDS: risperiDONE 0.5 MG TABLET PO (08:18)
[2022-09-27] MEDS: cefTRIAXone 2 GM/NS 100 ML 2 GM/100 ML BAG IVPB (08:19)
[2022-09-27] MEDS: PANTOPRAZOLE SODIUM IV 40 MG VIAL IV PUSH (08:19)
[2022-09-27] MEDS: INSULIN GLARGINE (*BKC) 100 UNITS/ML 10 UNITS SUB-Q (08:20)
[2022-09-27] MEDS: FLUTICASONE/SALMETEROL 115-21 MCG INHALER 1 PUFF 2 PUFF INHALATION (08:21)
[2022-09-27 11:42] LABS: Glucose Point of Care 104 mg/dl (65-105)
--- NOTE | 2022-09-27 15:02 | PM.DS ---
DS: Admitting Diagnosis Discharge Date 09/27/22 Admitting Diagnosis constipation DS: Discharge Diagnosis Discharge Diagnosis (1) Septic shock: Code(s): A41.9 - Sepsis, unspecified organism; R65.21 - Severe sepsis with septic shock Status: Acute Assessment and Plan: Patient presented with fecal impaction, constipation x4 days, was found to be hypotensive in the ER with systolic blood pressures in the 70s -status post 3 L IV fluid bolus and was started on maintenance IV fluids on admission + additional fluid bolus in the ICU + maintenance IV fluids -wean Levophed to maintain MAP > 70 mmHg for adequate end organ perfusion -lactic acid down to 2.0 (9.4 on admission) -continue maintenance IV fluids with LR, sodium bicarb infusion has been discontinued -switched Zosyn to ceftriaxone (09/26) due to thrombocytopenia, continue vancomycin (09/23) -09/24: Blood cultures negative x2 so far -09/24: Urine cultures E coli, sensitivities pending -09/24: Stool cultures negative for Campylobacter and E coli shiga toxins, salmonella and Shigella culture are pending (2) Lactic acidosis: Code(s): E87.20 - Acidosis, unspecified Status: Acute Assessment and Plan: Given severe lactic acidosis in the ER, patient had a CTA of the chest abdomen and pelvis which showed showed Prominent fecal material in the rectum and colon consistent with constipation,No bowel obstruction or intraperitoneal free air is detected otherwise , Cardiomegaly, Status post left mastectomy, 2.3 cm left exophytic renal cyst, Small left ventral abdominal wall fat-containing hernias. -appreciate surgery evaluation -lactic acid has normalized -continue IV fluids (3) Fecal impaction of colon: Code(s): K56.41 - Fecal impaction Status: Acute Assessment and Plan: Presented with fecal impaction/constipation -for stools were disimpacted and patient has been having good bowel movements -stool for C diff is negative -stool cultures as above (4) Diabetes mellitus type 2 in obese: Code(s): E11.69 - Type 2 diabetes mellitus with other specified complication; E66.9 - Obesity, unspecified Status: Acute Assessment and Plan: Patient has a history of type 2 diabetes on Lantus 40 units SQ q.h.s. and sliding scale insulin at the group home -continue Accu-Cheks, sliding scale insulin -patient remains hyperglycemic -continue low-dose Lantus -09/25: Patient failed her swallow evaluation 09/26: swallow eval with pureed and honey thickened liquids (5) Acute renal failure: Qualifiers: Acute renal failure type: with acute tubular necrosis Qualified Code(s): N17.0 - Acute kidney failure with tubular necrosis Code(s): N17.9 - Acute kidney failure, unspecified Status: Acute Assessment and Plan: Patient admitted with acute renal failure likely related to hypovolemia, hypotension, septic shock, infection UTI. Creatinine on admission was 1.40 (baseline creatinine 0.6-0.9 in 2021) -adequately fluid-resuscitated -creatinine has normalized -adequate urine output -will continue to monitor renal function and electrolytes along with urine output (6) Chronic respiratory failure with hypoxia, on home O2 therapy: Code(s): J96.11 - Chronic respiratory failure with hypoxia; Z99.81 - Dependence on supplemental oxygen Status: Acute Assessment and Plan: Patient has a history of chronic respiratory failure and uses 2 L oxygen at the group home -currently on room air (7) Atrial fibrillation: Code(s): I48.91 - Unspecified atrial fibrillation Status: Acute Assessment and Plan: History of atrial fibrillation on apixaban at the group home -patient was on therapy Lovenox which currently is on hold due to anemia and thrombocytopenia (8) Dementia: Qualifiers: Alzheimer's disease onset: unspecified onset Dementia behavioral or psychological symptom: with psycho
[2022-09-27 21:10] LABS: Heparin Induced Platelet Antib Negative (Negative)
[2022-09-28 13:49] LABS: UFH SRA Result Interpretation Negative (Negative)
== END 2022-09-27 17:40 | DRG 871 ==
LOC: ANHED 15:47 → ANHICU 22:26
PROVIDERS: Internal Medicine; Admitting Provider Internal Medicine; Emergency Provider Emergency Medicine; PCP Internal Medicine; Visit Provider Student in an Organized Health Care Education/Training Program
DX: A41.51 Sepsis due to Escherichia coli [E. coli] (principal); N17.0 Acute kidney failure with tubular necrosis; R65.21 Severe sepsis with septic shock; J96.11 Chronic respiratory failure with hypoxia; E87.20 Acidosis, unspecified; N39.0 Urinary tract infection, site not specified; K55.9 Vascular disorder of intestine, unspecified; F02.C2 Dementia in other diseases classified elsewhere, severe, with psychotic disturbance; B96.20 Unspecified Escherichia coli [E. coli] as the cause of diseases classified elsewhere; K56.41 Fecal impaction; D69.6 Thrombocytopenia, unspecified; D63.8 Anemia in other chronic diseases classified elsewhere; E11.9 Type 2 diabetes mellitus without complications; E87.6 Hypokalemia; I48.91 Unspecified atrial fibrillation; I10 Essential (primary) hypertension; G30.9 Alzheimer's disease, unspecified; R13.10 Dysphagia, unspecified; J44.9 Chronic obstructive pulmonary disease, unspecified; Z66 Do not resuscitate; Z99.81 Dependence on supplemental oxygen; Z79.4 Long term (current) use of insulin; Z90.10 Acquired absence of unspecified breast and nipple; N39.498 Other specified urinary incontinence; Z96.653 Presence of artificial knee joint, bilateral; Z79.01 Long term (current) use of anticoagulants
CPT/HCPCS: 36415; 71045; 71275; 74019; 74174; 80048; 80053; 80076; 80202; 81001; 82274; 82550; 82607; 82746; 82948; 83036; 83540; 83550; 83605; 83690; 83735; 84100; 84443; 85014; 85018; 85025; 85055; 85610; 85730; 86022; 87040; 87045; 87077; 87086; 87186; 87427; 87493; 92610; 93005; 94640; 96361; 96365; 96366; 96367; 96375; 99285; A9270; C1751; C9113; G0378; J0696; J1630; J1650; J1815; J2060; J2543; J3370; J3475; J3480; J7030; J7050; J7120; P9047; Q9967

== ENCOUNTER 2022-09-28 18:23 | Observation (INO) | payer MEDICARE, MEDICAID, SELFPAY ==
--- NOTE | ~2022-09-28 | XR_ITS ---
XR chest 1V portable 09/28/2022 20:35 Indication: Weakness Procedure: AP portable chest Comparison: Comparison to multiple prior studies sequentially, with oldest reviewed study dated 09/2021. Findings: Cardiomegaly. Mild pulmonary vascular congestion. Prominent cardiophrenic angle fat pad on the left. There is retrocardiac airspace disease. Impression: 1: Retrocardiac airspace disease, suspicious for pneumonia.. Reviewed, dictated and finalized at location A. Impression: 1: Retrocardiac airspace disease, suspicious for pneumonia..
[2022-09-28 18:22] VITALS: BP 139/81; PULSE 90; RESP 14; O2SAT 98
[2022-09-28 20:00] VITALS: BP 153/99; PULSE 94; RESP 20; O2SAT 98
[2022-09-28 20:30] LABS: Appearance Urine Clear (Clear); Bilirubin Urine Negative (Negative); Blood Urine Negative (Negative); Color Urine Yellow (Yellow); Glucose Urine UA Negative (Negative); Ketones Urine Negative (Negative); Leukocyte Esterase Ur Negative LEU/UL (Negative); Nitrate Urine Negative (Negative); Protein Urine Negative (Negative); Specific Grav Ur 1.011 (1.001-1.035)
[2022-09-28 20:33] LABS: Hemoglobin 10.1 g/dL (12.0-15.0); Immature Platelet Fraction Pct 2.6 % (0.9-11.2); Mean Corpuscular HGB Conc 32.6 g/dl (32-36); Mean Corpuscular Hemoglobin 31.9 pg (26-34); Mean Corpuscular Volume 97.8 fl (80-100); Mean Platelet Volume 10.1 fl (7.4-10.4); Platelet Count Result 93 k/mm3 (150-375); Red Blood Count 3.17 M/mm3 (4.2-5.4); Red Cell Distribution Width 13.9 % (11.5-14.5); White Blood Count 6.9 K/mm3 (4.5-10.0)
[2022-09-28 20:36] LABS: Add Urine Microscopic? NO
[2022-09-28 20:44] LABS: Alanine Aminotransferase 17 U/L (6-35); Albumin Level 2.7 g/dL (3.5-5.1); Alkaline Phosphatase 56 U/L (38-126); Anion Gap 4 mmol/L (8-16); Aspartate Amino Transferase 27 U/L (14-36); Bilirubin,Total 0.9 mg/dL (0.2-1.3); Blood Urea Nitrogen 10 mg/dL (7-17); Calcium 9.1 mg/dL (8.4-10.2); Carbon Dioxide 25 mmol/L (22-30); Chloride 105 mmol/L (98-107); Estimated CRCL calculation 59 ml/min; Estimated Glomerular Filt Rate > 60; Glucose 84 mg/dL (65-110); Lipase 36 U/L (23-300); Potassium 3.2 mmol/L (3.4-5.0); Sodium 134 mmol/L (137-145)
[2022-09-28 20:57] LABS: Band Neutrophils Percent 1 % (0-6); Lymphocytes Absolute Manual 2.55 K/mm3 (1.1-4.5); Monocytes Absolute Manual 0.48 K/mm3 (0.1-0.90); Monocytes Percent Manual 7 % (3-9); Neutrophils Absolute Manual 3.86 K/mm3 (1.7-7.2); Neutrophils Percent Manual 55 % (46-73); Total Cells Counted 100
[2022-09-28 20:58] LABS: Platelet Estimate Decreased (Adequate); Schistocytes None Seen (NORMAL)
[2022-09-28 20:58] LABS: Lactic Acid Reflex 0.8 mmol/L (0.7-2.0)
[2022-09-28 21:40] LABS: Magnesium 1.5 mg/dL (1.6-2.3)
[2022-09-28 21:55] VITALS: BP 151/99; PULSE 100; RESP 14; TEMP 36.6; O2SAT 98
[2022-09-28] MEDS: POTASSIUM CHLORIDE INJ 40 MEQ in SODIUM CHLORIDE 0.9% IV 500 ML 130 MEQ IVPB (21:57)
--- NOTE | 2022-09-28 22:15 | PM.IMHP ---
H&P: HPI History of Present Illness Date/Time: 09/28/22 22:15 Chief Complaint: Altered mental status Narrative: This is a 72-year-old female with past medical history significant for insulin-dependent diabetes mellitus, COPD, chronic respiratory failure with hypoxia on supplemental oxygen at home, dementia, dysphagia, hypertension, atrial fibrillation. Patient resides at alf. According to records patient was brought to the emergency room for evaluation after supposedly having blood in her vagina however in emergency room this was ruled out. Preliminary workup was significant for a chest x-ray with infiltrates. Patient is unable to give any history due to dementia. XR chest 1V portable 09/28/2022 20:35 Indication: Weakness Procedure: AP portable chest Comparison: Comparison to multiple prior studies sequentially, with oldest reviewed study dated? 09/07/2021. Findings: Cardiomegaly. Mild pulmonary vascular congestion. Prominent cardiophrenic angle fat pad on the left. There is retrocardiac airspace disease. Impression: 1: Retrocardiac airspace disease, suspicious for pneumonia.. Review of Systems Review of Systems: ROS unobtainable: Yes unobtainable due to mental status (Dementia, delirium) [facility] Past Medical History Medical History Asthma-COPD overlap syndrome Atrial fibrillation Chronic respiratory failure with hypoxia, on home O2 therapy Dementia Diabetes mellitus type 2 in obese Dysphagia On a pureed diet at the alf Hypertension Surgical History Surgical History History of bilateral knee replacement History of left mastectomy Family History Family History Other Unknown family medical history Social History Social History Social History: Code status: DNR/DNI per alf orders. Smoking status: Unknown if ever smoked Second hand tobacco smoke exposure: No Alcohol intake: never Substance use: never Spiritual care concerns: No Meds Home Medications and Allergies Home Medications Medication Instructions Recorded Confirmed Type apixaban 5 mg tablet (Eliquis) 5 mg PO BID 09/04/21 09/29/22 History atorvastatin 20 mg tablet 20 mg PO HS 09/04/21 09/29/22 History budesonide-formoterol HFA 160 2 inh inhalation BID 09/04/21 09/29/22 History mcg-4.5 mcg/actuation aerosol inhaler cyclosporine 0.05 % eye drops in a 2 drp EACH EYE BID 09/04/21 09/29/22 History dropperette (Restasis) divalproex 125 mg capsule,delayed 500 mg PO TID 09/04/21 09/29/22 History release sprinkle furosemide 40 mg tablet 40 mg PO BID 09/04/21 09/29/22 History gabapentin 100 mg capsule 1 cap PO TID 09/04/21 09/29/22 History insulin glargine 100 unit/mL (3 40 ea subcut AC 09/04/21 09/29/22 History mL) subcutaneous pen (Lantus Solostar U-100 Insulin) insulin lispro 100 unit/mL 18 ea subcut TIDWM 09/04/21 09/29/22 History subcutaneous pen (Humalog KwikPen (U-100) Insulin) ipratropium 0.5 mg-albuterol 3 mg 3 ml inhalation TID PRN Shortness 09/04/21 09/29/22 History (2.5 mg base)/3 mL nebulization Of Breath Or Wheezing soln pantoprazole 40 mg tablet,delayed 1 tablet PO DAILY 09/04/21 09/29/22 History release ascorbic acid (vitamin C) 500 mg 500 mg PO BID 09/23/22 09/29/22 History tablet cholecalciferol (vitamin D3) 10 1,000 unit PO DAILY 09/23/22 09/29/22 History mcg (400 unit) tablet (Vitamin D3) lorazepam 0.5 mg tablet 0.5 mg PO BID 09/23/22 09/29/22 History magnesium 200 mg tablet 400 mg PO DAILY 09/23/22 09/29/22 History multivitamin with minerals 1 tablet PO DAILY 09/23/22 09/29/22 History polyethylene glycol 3350 17 gram 17 g PO BID 09/23/22 09/29/22 History oral powder packet potassium chloride 10 mEq 10 meq PO DAILY 0
[2022-09-28] MEDS: MAGNESIUM SULF 1 GM/D5W 100 ML 1 GM/100 ML BAG IVPB (22:16)
--- NOTE | 2022-09-29 00:06 | ED.RECABL ---
HPI - Recheck/Abnormal Lab/Rx General Chief Complaint: Recheck/Abnormal Lab/Rx Stated Complaint: vag bleed, screaming in pain Time Seen by Provider: 09/28/22 19:45 Source: EMS, RN notes reviewed and old records reviewed Mode of arrival: EMS Limitations: altered mental status History of Present Illness HPI narrative: This is a 72-year-old female that presents to the emergency department for possible vaginal bleeding. Nursing facility notes she had some blood in her depends. Sent her in for evaluation of this. Patient only yells nonsensical. Gives no history. Related Data Home Medications Medication Instructions Recorded Confirmed apixaban 5 mg tablet (Eliquis) 5 mg PO BID 09/04/21 09/23/22 atorvastatin 20 mg tablet 20 mg PO HS 09/04/21 09/23/22 budesonide-formoterol HFA 160 2 inh inhalation BID 09/04/21 09/23/22 mcg-4.5 mcg/actuation aerosol inhaler cyclosporine 0.05 % eye drops in a 2 drp EACH EYE BID 09/04/21 09/23/22 dropperette (Restasis) divalproex 125 mg capsule,delayed 500 mg PO TID 09/04/21 09/23/22 release sprinkle furosemide 40 mg tablet 40 mg PO DAILY 09/04/21 09/23/22 gabapentin 100 mg capsule 1 cap PO TID 09/04/21 09/23/22 insulin glargine 100 unit/mL (3 40 ea subcut DAILY 09/04/21 09/23/22 mL) subcutaneous pen (Lantus Solostar U-100 Insulin) insulin lispro 100 unit/mL 18 ea subcut TIDWM 09/04/21 09/23/22 subcutaneous pen (Humalog KwikPen (U-100) Insulin) ipratropium 0.5 mg-albuterol 3 mg 3 ml inhalation Q6H PRN Shortness 09/04/21 09/23/22 (2.5 mg base)/3 mL nebulization Of Breath Or Wheezing soln pantoprazole 40 mg tablet,delayed 1 tablet PO DAILY 09/04/21 09/23/22 release ascorbic acid (vitamin C) 500 mg 500 mg PO BID 09/23/22 09/23/22 tablet cholecalciferol (vitamin D3) 10 10 mcg PO DAILY 09/23/22 09/23/22 mcg (400 unit) tablet (Vitamin D3) lorazepam 0.5 mg tablet 0.5 mg PO DAILY 09/23/22 09/23/22 magnesium 200 mg tablet 200 mg PO DAILY 09/23/22 09/23/22 multivitamin with minerals 1 tablet PO DAILY 09/23/22 09/23/22 polyethylene glycol 3350 17 gram 17 g PO BID 09/23/22 09/23/22 oral powder packet potassium chloride 10 mEq 10 meq PO DAILY 09/23/22 09/23/22 tablet,extended release risperidone 1 mg/mL oral syringe 0.5 mg PO BID 09/23/22 09/23/22 (FOR ORAL USE ONLY) risperidone microspheres 25 mg/2 25 mg IM Q14D 09/23/22 09/23/22 mL intramuscular susp,ext release (Risperdal Consta) Allergies Allergy/AdvReac Type Severity Reaction Status Date / Time castor oil Allergy Unknown Verified 09/23/22 14:56 chlorpromazine Allergy Unknown Verified 09/23/22 14:56 [From Thorazine] codeine Allergy Unknown Verified 09/23/22 14:56 phenobarbital Allergy Unknown Verified 09/23/22 14:56 propoxyphene Allergy Unknown Verified 09/23/22 14:56 thioridazine [From Mellaril] Allergy Unknown Verified 09/23/22 14:56 Review of Systems Review of Systems: ROS unobtainable: Yes unobtainable due to mental status PMFSH Past Medical History Medical History Asthma-COPD overlap syndrome Atrial fibrillation Chronic respiratory failure with hypoxia, on home O2 therapy Dementia Diabetes mellitus type 2 in obese Dysphagia On a pureed diet at the [facility] Hypertension Surgical History Surgical History History of bilateral knee replacement History of left mastectomy Family History Family History Other Unknown family medical history Social History Social History Social History: Code status: DNR/DNI per [facility] orders. Smoking status: Unknown if ever smoked Alcohol intake: unknown Substance use: unknown Spiritual care concerns: No Exam Narrative: GENERAL: Elderly, well-nourished, and in no acute distress. HEAD: Normocephalic
--- NOTE | 2022-09-29 00:11 | ADMGEN ---
This patient, Montse Zarate, was admitted to [facility] Surg Room 326-01. Patient/family oriented to hospital policies and general routines including ID bracelet, bed and alarms, visiting hours, pain management, procedures, bathroom and other care routines, personal items, smoking policy, room service/diet, and visiting hours. Information on how to activate the Rapid Response Team has been discussed. Patient/Family are encouraged to report perceived risks to care and to ask questions if they do not understand what they are told or what they should do.
[2022-09-29 00:18] VITALS: BP 165/107; PULSE 95; RESP 18; TEMP 36.6; O2SAT 97
[2022-09-29 00:28] VITALS: BP 160/102
[2022-09-29] MEDS: AZITHROMYCIN 500 MG/NS 250 ML 500 MG/250 ML BAG 250 MG IVPB ×2 (03:13→10:10)
[2022-09-29] MEDS: diphenhydrAMINE HCl INJ 50 MG/ML VIAL 25 MG IM (03:24)
[2022-09-29 04:40] VITALS: BP 127/62; PULSE 72; RESP 16; TEMP 36.2; O2SAT 98
[2022-09-29] MEDS: DEXTROSE 50% 25 GM/50 ML SYRINGE IV PUSH ×2 (08:35→09:02)
[2022-09-29 08:37] LABS: Glucose Point of Care 55 mg/dl (65-105)
[2022-09-29 08:59] LABS: Glucose Point of Care 182 mg/dl (65-105)
[2022-09-29] MEDS: FLUTICASONE/SALMETEROL 115-21 MCG INHALER 1 PUFF 2 PUFF INHALATION (09:24)
[2022-09-29] MEDS: HALOPERIDOL LACTATE 5 MG/ML VIAL IM (10:10)
--- NOTE | 2022-09-29 10:23 | PC.NURSE ---
I received a message that RYAN Villela, called wanting an update. I received voicemail. Message left that I attempted to return call.
--- NOTE | 2022-09-29 11:10 | PM.DS ---
DS: Admitting Diagnosis Discharge Date September 29, 2022 Admitting Diagnosis Vaginal bleeding, pneumonia DS: Discharge Diagnosis Discharge Diagnosis (1) Pneumonia: Qualifiers: Laterality: unspecified laterality Lung location: unspecified part of lung Pneumonia type: due to unspecified organism Qualified Code(s): J18.9 - Pneumonia, unspecified organism Code(s): J18.9 - Pneumonia, unspecified organism Status: Acute Assessment and Plan: Admit to regular medical Started on Rocephin and Zithromax Cultures in progress (2) Acute hypokalemia: Code(s): E87.6 - Hypokalemia Status: Acute Assessment and Plan: Replace as needed (3) Hypomagnesemia: Code(s): E83.42 - Hypomagnesemia Status: Acute Assessment and Plan: Replace as needed (4) Diabetes mellitus type 2 in obese: Code(s): E11.69 - Type 2 diabetes mellitus with other specified complication; E66.9 - Obesity, unspecified Status: Acute Assessment and Plan: Restart home meds Accu-Cheks AC and HS (5) Atrial fibrillation: Code(s): I48.91 - Unspecified atrial fibrillation Status: Acute Assessment and Plan: Rate controlled and anticoagulated (6) Chronic respiratory failure with hypoxia, on home O2 therapy: Code(s): J96.11 - Chronic respiratory failure with hypoxia; Z99.81 - Dependence on supplemental oxygen Status: Acute Assessment and Plan: Continue supplemental oxygen by nasal cannula Continue to monitor DS: Summary Hospital Course Hospital Course: Patient apparently was brought to the ER for vaginal bleeding from her facility. This was not the case and no vaginal bleeding could not be identified. She was then subsequently admitted for pneumonia. Reviewed the chest x-ray and I do not think she has a clinical pneumonia. Her respiratory status is perfectly fine she satting 98% on room air. I think her chest x-ray likely shows some atelectasis. She has no fever no subjective symptoms of any shortness of breath or any respiratory complaints. Antibiotics can be stopped and she can be sent home. Time Spent with Patient Time attestation: Total time spent providing and/or coordinating discharge services: Exam Narrative: Patient is laying in a stretcher Const: General: comfortable, no acute distress, well developed, alert, awake and average body habitus Nutritional Appearance: average body habitus Orientation/consciousness: Other orientation findings (Demented) HENMT: Head: normal to inspection, normocephalic and atraumatic Ears: hearing grossly normal bilaterally Face/Nose/Sinus: normal facial exam Face and sinus: normal facial exam Eyes: General: appearance normal, both eyes and all related structures Pupils: Equal, round and reactive pupils present EOM: EOMs intact bilaterally Neck: Neck: full ROM, no lymphadenopathy and no JVD Thyroid: thyroid normal Lymphatic: no lymphadenopathy noted Resp: Effort & Inspection: normal respiratory effort and able to speak in complete sentences Auscultation: clear to auscultation bilaterally Cardio: Jugular venous distension: no JVD Rate: regular rate Rhythm: regular rhythm Heart sounds: S1 normal heart sound present and S2 normal heart sound present : General: Yes deferred Skin: Rashes: no rashes Wounds: no wounds Neuro: General: moves all extremities, no focal motor deficits, CN's II-XI intact bilaterally and Unable to assess gait Cranial nerves: Yes CN's II-XII intact bilaterally and Yes Equal, round and reactive pupils present Cognition (Neuro): abnormal cognition (Demented) Speech: normal speech Gait exam (Neuro): Unable to assess gait Motor exam (neuro): 5/5 motor strength present throughout Extrem: General: normal to inspection, full ROM, no joint enlargement and no pedal edema Psych: Other: Demented DS: Data Data Completed and Pending Labs on day of discharge: Labs from
[2022-09-29 12:13] LABS: SARS-CoV-2 RNA PCR Negative (Negative)
== END 2022-09-29 14:47 | disposition home or self-care (01) ==
LOC: ANHED 19:45 → ANH3MEDSUR 09-29 00:58
PROVIDERS: Admitting Provider Internal Medicine; Emergency Provider Physician Assistant; PCP Internal Medicine; Visit Provider Chiropractor
DX: J18.9 Pneumonia, unspecified organism (principal); E87.6 Hypokalemia; E83.42 Hypomagnesemia; E11.69 Type 2 diabetes mellitus with other specified complication; I48.91 Unspecified atrial fibrillation; J96.11 Chronic respiratory failure with hypoxia; Z99.81 Dependence on supplemental oxygen; E66.9 Obesity, unspecified; R41.82 Altered mental status, unspecified; J44.9 Chronic obstructive pulmonary disease, unspecified; J84.89 Other specified interstitial pulmonary diseases; Z20.822 Contact with and (suspected) exposure to COVID-19; Z68.33 Body mass index [BMI] 33.0-33.9, adult; R13.10 Dysphagia, unspecified; F03.90 Unspecified dementia, unspecified severity, without behavioral disturbance, psychotic disturbance, mood disturbance, and anxiety; I10 Essential (primary) hypertension; Z66 Do not resuscitate; Z79.01 Long term (current) use of anticoagulants; Z79.4 Long term (current) use of insulin; Z79.51 Long term (current) use of inhaled steroids; Z79.899 Other long term (current) drug therapy
CPT/HCPCS: 36415; 71045; 80053; 81003; 82948; 83605; 83690; 83735; 85025; 85055; 87635; 94640; 96365; 96366; 96368; 96372; 96375; 99285; A9270; G0378; J0456; J0696; J1200; J1630; J3475; J3480; J7040